=== PATIENT | male | born 1975 | race African-American/Black ===

== ENCOUNTER 2016-09-20 23:00 | Emergency (ER) | payer MEDICAID ==
[2016-09-21 00:45] LABS: Hematocrit 48 % (42-52); Hemoglobin 16.3 g/dl (14.0-18.0); Mean Corpuscular HGB Conc 34 g/dl (31-36); Mean Corpuscular Hemoglobin 29 pg (27-31); Mean Corpuscular Volume 86 fL (80-94); Mean Platelet Volume 10 um3 (7.4-10.4); Red Cell Distribution Width 14 % (10.5-15); White Blood Count 10.7 10^3/ul (3.5-10.8)
[2016-09-21 00:56] LABS: Albumin 4.7 g/dL (3.2-5.2); BUN/Creatinine Ratio 11.1 (8-20); Calcium 9.5 mg/dL (8.6-10.3); EGFR African American 120.2 (>60); EGFR Non-African American 93.5 (>60); Globulin 3.5 g/dL (2-4); Potassium 4.1 mmol/L (3.5-5.0); Total Bilirubin 0.4 mg/dL (0.2-1.0); Total Protein 8.2 g/dL (6.4-8.9)
[2016-09-21 01:07] LABS: Benzodiazepine Urine Screen None Detected (None Detect)
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
[2016-09-21 12:01] VITALS: BP 150/74
--- NOTE | 2016-09-21 15:00 | ED ---
Claudia Tillman Matthew, scribed for Sheldon Obrien MD on 09/21/16 at 1313 . Progress - Progress Note Progress Note: The patient is a sign out from Dr. Saba. The patient is in stable condition and will be discharged home. He does not need M[facility] admission, will be discharged home. - Consult/PCP Time Called: 11:00 Course/Dx - Course Course Of Treatment: This is a 41 y/o male presenting with alcohol intoxication. He claims to be very angry and requests a mental health evaluation. Pt denies SI. The patient will be signed out to Dr. Obrien. - Diagnoses Provider Diagnoses: Alcohol intoxication The documentation as recorded by the Claudia monte Matthew accurately reflects the service I personally performed and the decisions made by , Sheldon Obrien MD.
== END 2016-09-21 13:00 | disposition home or self-care (01) ==
LOC: ED 23:00
DX: F10.129 Alcohol abuse with intoxication, unspecified (principal); F41.9 Anxiety disorder, unspecified; F17.210 Nicotine dependence, cigarettes, uncomplicated
CPT/HCPCS: 36415; 80053; 80307; 80320; 85025; 99283; G0480

== ENCOUNTER 2016-09-25 21:47 | Emergency (ER) | payer MEDICAID ==
[2016-09-25 22:05] VITALS: BP 147/94
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
== END 2016-09-26 06:58 | disposition home or self-care (01) ==
LOC: ED 21:47
DX: F10.10 Alcohol abuse, uncomplicated (principal); R41.82 Altered mental status, unspecified; R44.3 Hallucinations, unspecified; F17.210 Nicotine dependence, cigarettes, uncomplicated
CPT/HCPCS: 99282

== ENCOUNTER 2016-10-09 22:03 | Emergency (ER) | payer MEDICAID ==
[2016-10-09 22:06] VITALS: BP 158/79
[2016-10-09] MEDS ORDERED: Tetan/Diph/Pertus SYR(Tdap)* 0.5 ML SYR(BOOSTRIX) use SYR IM ONE (22:08)
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
== END 2016-10-09 23:16 | disposition home or self-care (01) ==
LOC: ED 22:03
DX: S01.01XA Laceration without foreign body of scalp, initial encounter (principal); Y04.8XXA Assault by other bodily force, initial encounter; Y93.89 Activity, other specified; Y92.009 Unspecified place in unspecified non-institutional (private) residence as the place of occurrence of the external cause; Z23 Encounter for immunization; F03.90 Unspecified dementia, unspecified severity, without behavioral disturbance, psychotic disturbance, mood disturbance, and anxiety; F17.210 Nicotine dependence, cigarettes, uncomplicated
CPT/HCPCS: 12002; 70450; 90471; 90715; 99282

== ENCOUNTER 2016-10-15 15:43 | Emergency (ER) | payer MEDICAID ==
[2016-10-15 16:39] LABS: Hematocrit 50 % (42-52); Hemoglobin 16.7 g/dl (14.0-18.0); Mean Corpuscular HGB Conc 33 g/dl (31-36); Mean Corpuscular Hemoglobin 29 pg (27-31); Mean Corpuscular Volume 86 fL (80-94); Mean Platelet Volume 9 um3 (7.4-10.4); Red Blood Count 5.82 10^6/ul (4.0-5.4); Red Cell Distribution Width 15 % (10.5-15); White Blood Count 9.8 10^3/ul (3.5-10.8)
[2016-10-15 16:56] LABS: Benzodiazepine Urine Screen None Detected (None Detect)
[2016-10-15 16:58] LABS: Albumin 4.5 g/dL (3.2-5.2); BUN/Creatinine Ratio 11.9 (8-20); Calcium 9.4 mg/dL (8.6-10.3); EGFR African American 130.2 (>60); EGFR Non-African American 101.2 (>60); Globulin 3.4 g/dL (2-4); Potassium 4.1 mmol/L (3.5-5.0); Total Bilirubin 0.2 mg/dL (0.2-1.0); Total Protein 7.9 g/dL (6.4-8.9)
--- NOTE | 2016-10-15 17:26 | RAD ---
INDICATION: Intracranial injury COMPARISON: CT brain October 09, 2016 TECHNIQUE: Noncontrast axial source images were acquired from the skull base to the vertex. FINDINGS: Ventricles/sulci: The ventricles and cisterns are normal in size and configuration for age. Brain parenchyma: There is no acute focal parenchymal finding, evidence of intracranial mass, or intracranial mass effect. 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 Intracranial hemorrhage:None. Extra-axial spaces: There are no abnormal extra axial fluid collections or evidence of extra-axial mass. Calvarium: There is no calvarial fracture or other calvarial abnormality. Scalp: There is right posterior parietal scalp laceration. Paranasal sinuses/mastoid: The paranasal sinuses and mastoid air cells are clear. Other: None. IMPRESSION: NEGATIVE EXAMINATION
[2016-10-15 19:28] VITALS: BP 114/65
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
== END 2016-10-15 19:20 | disposition home or self-care (01) ==
LOC: ED 15:43
DX: F10.129 Alcohol abuse with intoxication, unspecified (principal); F07.81 Postconcussional syndrome; Y90.8 Blood alcohol level of 240 mg/100 ml or more; W22.8XXA Striking against or struck by other objects, initial encounter; Y92.9 Unspecified place or not applicable; F43.9 Reaction to severe stress, unspecified; F17.210 Nicotine dependence, cigarettes, uncomplicated
CPT/HCPCS: 36415; 70450; 80053; 80307; 80320; 85027; 99282; G0480

== ENCOUNTER 2016-10-29 04:24 | Emergency (ER) | payer MEDICAID ==
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
[2016-10-29 07:02] VITALS: BP 105/66
== END 2016-10-29 07:00 | disposition home or self-care (01) ==
LOC: ED 04:24
DX: F10.920 Alcohol use, unspecified with intoxication, uncomplicated (principal); R51 Headache; F17.210 Nicotine dependence, cigarettes, uncomplicated
CPT/HCPCS: 99282

== ENCOUNTER 2016-11-02 21:38 | Emergency (ER) | payer MEDICAID ==
[2016-11-02] MEDS ORDERED: LORazepam INJ* 2 MG/ML 1 ML VIAL ONE ×2 (22:00)
[2016-11-02] MEDS ORDERED: LORazepam INJ* 2 MG/ML 1 ML VIAL IM ONE (22:02)
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
[2016-11-03 06:24] VITALS: BP 140/79
== END 2016-11-03 06:23 | disposition home or self-care (01) ==
LOC: ED 21:38
DX: F10.129 Alcohol abuse with intoxication, unspecified (principal); R47.81 Slurred speech; F17.210 Nicotine dependence, cigarettes, uncomplicated
CPT/HCPCS: 96374; 96376; 99284; J2060

== ENCOUNTER 2016-11-03 16:57 | Emergency (ER) | payer MEDICAID ==
[2016-11-03] MEDS ORDERED: diPHENhydraMINE IV* 50 MG/ML 1 ml VIAL (BENADRYL) ONE ×2 (17:25)
[2016-11-03] MEDS ORDERED: LORazepam INJ* 2 MG/ML 1 ML VIAL ONE ×2 (17:25)
[2016-11-03] MEDS ORDERED: Haloperidol INJ IV/IM* 5 MG/ML AMP ONE ×2 (17:25)
[2016-11-03] MEDS ORDERED: Thiamine IV* 100 MG, Folic Acid IV* 1 MG, Multiple Vitamin IV ADULT* 10 ML in NS 0.9% 1... IV ONE (17:27)
[2016-11-03 18:53] LABS: Hematocrit 43 % (42-52); Hemoglobin 14.1 g/dl (14.0-18.0); Mean Corpuscular HGB Conc 33 g/dl (31-36); Mean Corpuscular Hemoglobin 28 pg (27-31); Mean Corpuscular Volume 86 fL (80-94); Mean Platelet Volume 9 um3 (7.4-10.4); Red Blood Count 4.98 10^6/ul (4.0-5.4); Red Cell Distribution Width 15 % (10.5-15); White Blood Count 9.6 10^3/ul (3.5-10.8)
[2016-11-03 19:09] LABS: ALT 13 U/L (7-52); AST 28 U/L (13-39); Alkaline Phosphatase 56 U/L (34-104); Anion Gap 5 mmol/L (2-11); BUN/Creatinine Ratio 10.8 (8-20); Blood Urea Nitrogen 8 mg/dL (6-24); CO2 Carbon Dioxide 27 mmol/L (22-32); Calcium 8.4 mg/dL (8.6-10.3); Chloride 103 mmol/L (101-111); EGFR African American 150.7 (>60); EGFR Non-African American 117.1 (>60); Globulin 2.9 g/dL (2-4); Glucose 67 mg/dL (70-100); Sodium 135 mmol/L (133-145); Total Protein 6.9 g/dL (6.4-8.9)
[2016-11-03 19:32] LABS: Acetaminophen < 15 mcg/mL; Alcohol 302 mg/dL (<10); Salicylate < 2.50 mg/dL (<30)
[2016-11-03 19:35] LABS: TSH (Thyroid Stimulating Horm) 0.28 mcIU/mL (0.34-5.60)
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
[2016-11-04 05:04] VITALS: BP 122/61
[2016-11-04] MEDS ORDERED: Thiamine IV* 100 MG, Folic Acid IV* 1 MG, Multiple Vitamin IV ADULT* 10 ML in NS 0.9% 1... IV ONE (15:00)
== END 2016-11-04 05:03 | disposition home or self-care (01) ==
LOC: ED 16:57 → UNDOADMIN 11-04 05:00 → BSU 11-04 05:00 → ED 11-04 05:03
DX: F10.129 Alcohol abuse with intoxication, unspecified (principal); Y90.8 Blood alcohol level of 240 mg/100 ml or more; F41.9 Anxiety disorder, unspecified; R45.6 Violent behavior; F17.210 Nicotine dependence, cigarettes, uncomplicated
CPT/HCPCS: 36415; 80053; 80320; 80329; 84443; 85025; 99285; G0480; J1200; J1630; J2060; J3411

== ENCOUNTER 2016-11-16 00:11 | Emergency (ER) | payer SELFPAY ==
[2016-11-16 01:04] LABS: Hematocrit 46 % (42-52); Hemoglobin 15.4 g/dl (14.0-18.0); Mean Corpuscular HGB Conc 34 g/dl (31-36); Mean Corpuscular Hemoglobin 29 pg (27-31); Mean Corpuscular Volume 86 fL (80-94); Mean Platelet Volume 9 um3 (7.4-10.4); Red Blood Count 5.29 10^6/ul (4.0-5.4); Red Cell Distribution Width 15 % (10.5-15); White Blood Count 10.7 10^3/ul (3.5-10.8)
[2016-11-16 01:06] LABS: ALT 26 U/L (7-52); AST 30 U/L (13-39); Albumin 4.5 g/dL (3.2-5.2); Alkaline Phosphatase 65 U/L (34-104); Anion Gap 11 mmol/L (2-11); BUN/Creatinine Ratio 10.1 (8-20); Blood Urea Nitrogen 8 mg/dL (6-24); CO2 Carbon Dioxide 23 mmol/L (22-32); Calcium 9.1 mg/dL (8.6-10.3); Chloride 101 mmol/L (101-111); EGFR African American 139.7 (>60); EGFR Non-African American 108.6 (>60); Globulin 3.5 g/dL (2-4); Glucose 79 mg/dL (70-100); Potassium 4.1 mmol/L (3.5-5.0); Sodium 135 mmol/L (133-145); Urine Bacteria 1+ (Absent); Urine Bilirubin Negative (Negative); Urine Glucose Negative (Negative); Urine Nitrite Negative (Negative)
[2016-11-16 01:11] LABS: Benzodiazepine Urine Screen Presumptive Positive (None Detect)
[2016-11-16 01:18] LABS: Acetaminophen < 15 mcg/mL; Alcohol 267 mg/dL (<10); Salicylate < 2.50 mg/dL (<30)
[2016-11-16 01:28] LABS: TSH (Thyroid Stimulating Horm) 1.15 mcIU/mL (0.34-5.60)
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
[2016-11-16] MEDS ORDERED: Nicotine Inhaler* 10 MG AMP INH ONE (08:08)
[2016-11-16] MEDS ORDERED: Mouth Piece, Nicotine* 1 EACH CARTRIDGE ONE (08:52)
--- NOTE | 2016-11-16 17:58 | ED ---
julián Tillman Timothy, scribed for Sheldon Obrien MD on 11/16/16 at 0810 . Progress - Progress Note Progress Note: Toan Biswas is a 41 yo male presenting to [facility] as a 941. He was signed out by Dr. Shaw. Course/Dx - Course Course Of Treatment: Toan Biswas is a 41 yo male presenting to [facility] as a 941. He is medically clear for a MHUE at 0800. He will be signed out pending a mental health unit evaluation. - Diagnoses Provider Diagnoses: Mental health problem, Alcohol intoxication The documentation as recorded by the mariahibejulián Timothy accurately reflects the service I personally performed and the decisions made by me, Sheldon Obrien MD.
[2016-11-16 19:01] VITALS: BP 149/82
== END 2016-11-16 19:00 | disposition home or self-care (01) ==
LOC: ED 00:11
DX: F10.129 Alcohol abuse with intoxication, unspecified (principal); Z00.8 Encounter for other general examination
CPT/HCPCS: 36415; 80053; 80307; 80320; 80329; 81003; 81015; 84443; 85025; 87086; 99282; A9270-GY; G0480

== ENCOUNTER 2016-11-27 22:45 | Emergency (ER) | payer SELFPAY ==
[2016-11-27 23:12] VITALS: BP 136/87
[2016-11-28 00:04] LABS: Urine Bacteria Absent (Absent); Urine Bilirubin Negative (Negative); Urine Glucose Negative (Negative); Urine Nitrite Negative (Negative)
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
== END 2016-11-28 00:27 | disposition home or self-care (01) ==
LOC: ED 22:45
DX: F07.81 Postconcussional syndrome (principal); R42 Dizziness and giddiness; R51 Headache; H53.8 Other visual disturbances; F17.210 Nicotine dependence, cigarettes, uncomplicated
CPT/HCPCS: 70450; 81003; 81015; 99282

== ENCOUNTER 2016-11-28 19:40 | Emergency (ER) | payer SELFPAY ==
[2016-11-28] MEDS ORDERED: LORazepam INJ* 2 MG/ML 1 ML VIAL IM ONE (20:18)
[2016-11-28] MEDS ORDERED: Haloperidol INJ IV/IM* 5 MG/ML AMP IM ONE (20:18)
[2016-11-28] MEDS ORDERED: diPHENhydraMINE IV* 50 MG/ML 1 ml VIAL (BENADRYL) IM ONE (20:18)
[2016-11-28] MEDS ORDERED: Haloperidol INJ IV/IM* 5 MG/ML AMP ONE (20:19)
[2016-11-28] MEDS ORDERED: diPHENhydraMINE IV* 50 MG/ML 1 ml VIAL (BENADRYL) ONE (20:19)
[2016-11-28] MEDS ORDERED: LORazepam INJ* 2 MG/ML 1 ML VIAL ONE (20:19)
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
[2016-11-28 21:01] LABS: Hematocrit 45 % (42-52); Hemoglobin 14.8 g/dl (14.0-18.0); Mean Corpuscular HGB Conc 33 g/dl (31-36); Mean Corpuscular Hemoglobin 29 pg (27-31); Mean Corpuscular Volume 87 fL (80-94); Mean Platelet Volume 8 um3 (7.4-10.4); Red Blood Count 5.18 10^6/ul (4.0-5.4); Red Cell Distribution Width 15 % (10.5-15); White Blood Count 8.8 10^3/ul (3.5-10.8)
[2016-11-28 21:02] LABS: Add Diff/Slide Review? Slide Review Added; Comments Flag Yes
[2016-11-28 21:18] LABS: ALT 22 U/L (7-52); AST 32 U/L (13-39); Albumin 4.3 g/dL (3.2-5.2); Alkaline Phosphatase 65 U/L (34-104); Anion Gap 10 mmol/L (2-11); BUN/Creatinine Ratio 7.7 (8-20); Blood Urea Nitrogen 7 mg/dL (6-24); CO2 Carbon Dioxide 26 mmol/L (22-32); Calcium 8.6 mg/dL (8.6-10.3); Chloride 101 mmol/L (101-111); EGFR African American 118.7 (>60); EGFR Non-African American 92.3 (>60); Globulin 3.3 g/dL (2-4); Glucose 90 mg/dL (70-100); Potassium 3.9 mmol/L (3.5-5.0); Sodium 137 mmol/L (133-145); Total Protein 7.6 g/dL (6.4-8.9)
[2016-11-28 21:35] LABS: Acetaminophen < 15 mcg/mL; Alcohol 385 mg/dL (<10); Salicylate < 2.50 mg/dL (<30)
[2016-11-28 21:46] LABS: TSH (Thyroid Stimulating Horm) 0.71 mcIU/mL (0.34-5.60)
[2016-11-29 09:14] VITALS: BP 122/60
== END 2016-11-29 09:11 | disposition home or self-care (01) ==
LOC: ED 19:40
DX: F10.129 Alcohol abuse with intoxication, unspecified (principal); Z72.89 Other problems related to lifestyle; F17.210 Nicotine dependence, cigarettes, uncomplicated
CPT/HCPCS: 36415; 80053; 80320; 80329; 84443; 85025; 96374; 96375; 99283; G0480; J1200; J1630; J2060

== ENCOUNTER 2016-11-30 19:44 | Emergency (ER) | payer SELFPAY ==
[2016-11-30 20:06] VITALS: BP 156/89
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
== END 2016-11-30 23:31 | disposition home or self-care (01) ==
LOC: ED 19:44
DX: F10.129 Alcohol abuse with intoxication, unspecified (principal); F17.210 Nicotine dependence, cigarettes, uncomplicated
CPT/HCPCS: 99282

== ENCOUNTER 2016-12-01 21:51 | Emergency (ER) | payer MEDICAID ==
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
[2016-12-02 05:55] VITALS: BP 150/77
== END 2016-12-02 05:54 | disposition home or self-care (01) ==
LOC: ED 21:51
DX: F10.10 Alcohol abuse, uncomplicated (principal); S09.90XA Unspecified injury of head, initial encounter; W22.8XXA Striking against or struck by other objects, initial encounter; Y93.89 Activity, other specified; Y92.89 Other specified places as the place of occurrence of the external cause; F17.210 Nicotine dependence, cigarettes, uncomplicated
CPT/HCPCS: 99282

== ENCOUNTER 2017-01-19 17:25 | Emergency (ER) | payer MEDICAID ==
[2017-01-19] MEDS ORDERED: LORazepam INJ* 2 MG/ML 1 ML VIAL IM ONE (18:01)
[2017-01-19] MEDS ORDERED: Nicotine Inhaler* 10 MG AMP INH PRN (18:02)
[2017-01-19] MEDS ORDERED: Mouth Piece, Nicotine* 1 EACH CARTRIDGE ONE (18:10)
[2017-01-19] MEDS ORDERED: Nicotine Inhaler* 10 MG AMP ONE (18:10)
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
[2017-01-20 06:07] VITALS: BP 152/100
== END 2017-01-20 06:11 | disposition home or self-care (01) ==
LOC: ED 17:25
DX: F10.129 Alcohol abuse with intoxication, unspecified (principal); F17.210 Nicotine dependence, cigarettes, uncomplicated
CPT/HCPCS: 99282; A9270-GY; J2060

== ENCOUNTER 2018-02-06 04:58 | Emergency (ER) | payer MEDICAID ==
[2018-02-06] MEDS ORDERED: Al Hydrox/Mg Hydrox/Simet LIQ* 30 ML UDC PO ONE (05:13)
[2018-02-06] MEDS ORDERED: Lidocaine 2% VISCOUS* 15 ML UDC PO ONE (05:14)
[2018-02-06] MEDS ORDERED: Tamsulosin CAP* 0.4 MG PO ONE (06:30)
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
[2018-02-06 12:26] VITALS: BP 127/66
== END 2018-02-06 12:22 | disposition home or self-care (01) ==
LOC: ED 04:58
DX: F10.129 Alcohol abuse with intoxication, unspecified (principal); K21.9 Gastro-esophageal reflux disease without esophagitis; F17.210 Nicotine dependence, cigarettes, uncomplicated
CPT/HCPCS: 99282; A9270-GY

== ENCOUNTER 2018-04-01 05:30 | Emergency (ER) | payer SELFPAY ==
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
--- NOTE | 2018-04-01 07:10 | ED ---
Progress - Progress Note Progress Note: This is scribe Steve Iniguez documenting for attending Darek Lee MD. 11:10 -- At around this time, the patient who had been sleeping the past few hours woke up and left ED without notification to Dr. Lee or other medical staff. Course/Dx - Course Course Of Treatment: Mr. Biswas presented to the emergency department as it has been many times before and it acutely intoxicated state. He was evaluated and allowed to sleep here in the emergency department and was sleeping when my shift began. It was my intention to evaluate him upon waking up and likely discharge however he got up and walked out as soon as he woke up and all I could do is observe that he walked with a normal gait. - Diagnoses Provider Diagnoses: Alcohol intoxication Discharge - Sign-Out/Discharge Documenting (check all that apply): Patient Departure - patient left without being seen or talking to Dr. Lee or medical staff - Discharge Plan Condition: Stable Disposition: ELOPEMENT Referrals: Pawan Abarca MD [Primary Care Provider] - - Billing Disposition and Condition Condition: STABLE Disposition: Elopement
[2018-04-01 11:15] VITALS: BP 115/73
== END 2018-04-01 11:23 | disposition left against medical advice (07) ==
LOC: ED 05:30
DX: F10.129 Alcohol abuse with intoxication, unspecified (principal); F17.210 Nicotine dependence, cigarettes, uncomplicated
CPT/HCPCS: 99282

== ENCOUNTER 2018-05-14 23:34 | Emergency (ER) | payer SELFPAY ==
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
[2018-05-14 23:55] LABS: ABS Basophils 0.1 10^3/ul (0-0.2); ABS Eosinophils 0.3 10^3/ul (0-0.6); ABS Lymphocytes 2.2 10^3/ul (1.0-4.8); ABS Monocytes 0.7 10^3/ul (0-0.8); ABS Nucleated RBC 0 10^3/ul; Eosinophil % 4.1 % (0-6); Hematocrit 42 % (42-52); Hemoglobin 14.3 g/dl (14.0-18.0); Lymphocyte % 29.9 % (25-47); Mean Corpuscular HGB Conc 34 g/dl (31-36); Mean Corpuscular Hemoglobin 30 pg (27-31); Mean Corpuscular Volume 88 fL (80-94); Mean Platelet Volume 8.2 um3 (7.4-10.4); Nucleated Red Blood Cells % 0.2; Platelet Count 191 10^3/ul (150-450); Red Blood Count 4.74 10^6/ul (4.00-5.40); Red Cell Distribution Width 16 % (10.5-15); White Blood Count 7.4 10^3/ul (3.5-10.8)
[2018-05-15 00:17] LABS: EGFR Non-African American 100.2 (>60)
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
[2018-05-15 10:24] VITALS: BP 160/101
== END 2018-05-15 10:23 | disposition home or self-care (01) ==
LOC: ED 23:34
CPT/HCPCS: 36415; 70450; 70486; 72125; 80053; 80320; 85025; G0480

== ENCOUNTER → 2018-05-15 10:56 | Emergency (ER) | payer SELFPAY ==
[2018-05-15 11:19] VITALS: BP 161/84
== END | disposition home or self-care (01) ==
LOC: ED 10:56
DX: R42 Dizziness and giddiness (principal)
CPT/HCPCS: 99282

== ENCOUNTER 2018-08-07 23:34 | Emergency (ER) | payer SELFPAY ==
[2018-08-08] MEDS ORDERED: Nicotine GUM* 2 MG PO PRN (00:25)
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
--- NOTE | 2018-08-08 04:18 | ED ---
Progress - Progress Note Progress Note: Patient is received as a sign out at 0230 08/08/18 from DEYA Jansen pending sobriety of this patient. Patient is signed out to Dr. Shetty at 0700 08/08/18 shift change pending sobriety of patient. Course/Dx - Course Course Of Treatment: Patient is received as a sign out at 0230 08/08/18 from DEYA Jansen pending sobriety of this patient. Patient is signed out to Dr. Shetty at 0700 08/08/18 shift change pending sobriety of patient. - Diagnoses Provider Diagnoses: Alcohol intoxication Discharge - Sign-Out/Discharge Documenting (check all that apply): Sign-Out Patient Signing out patient TO: Beau Shetty Receiving patient FROM: Jennifer Colmenares - Discharge Plan Referrals: Pawan Abarca MD [Primary Care Provider] - - Attestation Statements Document Initiated by Scribe: Yes Documenting Scribe: CRISELDA DAVILA Provider For Whom Scribe is Documenting (Include Credential): JENNIFER COLMENARES MD Scribe Attestation: CRISELDA Tillman , scribed for JENNIFER COLMENARES MD on 08/08/18 at 0641. Status of Scribe Document: Ready
--- NOTE | 2018-08-08 07:12 | ED ---
Progress - Progress Note Progress Note: The patient was signed out by Dr. Colmenares to Dr. Shetty, waiting for him to sober up. He has not had bloodwork done, so I am going to see what his ROLAND is and make a decision afterwards. Re-Evaluation - Re-Evaluation First Eval Re-Evaluation Time: 07:55 Change: Worse Comment: The patient is agitated, angry, and says he wants to end everything. He is going to need a mental health evaluation, to be determined after finding out his ROLAND. Course/Dx - Course Course Of Treatment: This patient was sent up with Dr. Colmenares at shift change. He reports that the patient is a 43-year-old male with alcohol intoxication. The patient is awaiting to be sober. No that the patient is awake, alert and oriented he reports that he wants to end his life therefore the patient will be medically cleared for a mental health evaluation. Mental health evaluation. Dr. Bates reports that the patient can be discharged home after a social work evaluation. The patient is alert oriented 3. The patient is hemodynamically stable. The patient is sober therefore the patient can be discharged home after the social services coordinator evaluation. Delilah Mora rodent control worker consulted and recommends discharge to [facility]. - Diagnoses Provider Diagnoses: Alcohol intoxication Discharge - Sign-Out/Discharge Documenting (check all that apply): Patient Departure - discharge, Receiving Sign-Out Receiving patient FROM: Debbie Colmenares - Discharge Plan Condition: Stable Disposition: HOME Patient Education Materials: Alcohol Intoxication (ED) Referrals: [facility] of Maintenance Repairer [Other] (Please present to [facility] to apply for emergency housing to receive long-term at the rescue mission.) Pawan Abarca MD [Primary Care Provider] - Additional Instructions: RETURN TO THE EMERGENCY DEPARTMENT FOR NEW OR WORSENING SYMPTOMS - Billing Disposition and Condition Condition: STABLE Disposition: Home - Attestation Statements Document Initiated by Scribe: Yes Documenting Scribe: Diego Davis Provider For Whom Iván is Documenting (Include Credential): Beau Shetty MD Scribe Attestation: Diego Tillman, scribed for Beau Shetty MD on 08/08/18 at 1859. Scribe Documentation Reviewed: Yes Provider Attestation: The documentation as recorded by the Diego monet accurately reflects the service I personally performed and the decisions made by me, Beau Shetty MD Status of Scribe Document: Viewed
[2018-08-08 08:23] LABS: ABS Basophils 0.1 10^3/ul (0-0.2); ABS Eosinophils 0.2 10^3/ul (0-0.6); ABS Lymphocytes 2.2 10^3/ul (1.0-4.8); ABS Monocytes 0.5 10^3/ul (0-0.8); ABS Nucleated RBC 0 10^3/ul; Eosinophil % 2.7 %; Hematocrit 48 % (42-52); Hemoglobin 15.6 g/dl (14.0-18.0); Lymphocyte % 27.8 %; Mean Corpuscular HGB Conc 33 g/dl (31-36); Mean Corpuscular Hemoglobin 29 pg (27-31); Mean Corpuscular Volume 89 fL (80-94); Mean Platelet Volume 9.5 fL (7.4-10.4); Nucleated Red Blood Cells % 0.1; Platelet Count 168 10^3/ul (150-450); Red Blood Count 5.34 10^6/ul (4.00-5.40); Red Cell Distribution Width 14 % (10.5-15)
[2018-08-08 08:40] LABS: EGFR Non-African American 110.8 (>60)
[2018-08-08 11:52] VITALS: BP 152/82
== END 2018-08-08 11:51 | disposition home or self-care (01) ==
LOC: ED 23:34
DX: F10.129 Alcohol abuse with intoxication, unspecified (principal); F17.210 Nicotine dependence, cigarettes, uncomplicated
CPT/HCPCS: 36415; 80053; 80320; 80329; 84443; 85025; 99285; G0480

== ENCOUNTER 2019-02-06 15:12 | Emergency (ER) | payer SELFPAY ==
[2019-02-06 15:26] VITALS: BP 159/90
[2019-02-06] MEDS ORDERED: Amoxicillin/Clavulanate TAB* 875 MG PO ONE (15:44)
--- NOTE | 2019-02-06 16:02 | UC ---
Bite Injury/Animal HPI - HPI Summary HPI Summary: 43-year-old man who is well-known to the ER presents with dog bite to left forearm. He is right-handed. He states that his friend's dog bit him this prior to arrival, but that the dog is up-to-date on all his vaccines including rabies. He denies difficulty with moving the hand/arm, bleeding, drainage or other concerns. - History of Current Complaint Chief Complaint: UCBiteInjury Stated Complaint: DOG BITE ON LEFT ARM Time Seen by Provider: 02/06/19 15:21 Hx Obtained From: Patient Pain Intensity: 0 - Allergies/Home Medications Allergies/Adverse Reactions: Allergies Allergy/AdvReac Type Severity Reaction Status Date / Time No Known Allergies Allergy Verified 02/06/19 15:26 PMH/Surg Hx/FS Hx/Imm Hx Previously Healthy: Yes Psychological History: Other - Alcoholism Other History Of: Negative For: Anticoagulant Therapy - Surgical History Surgical History: Yes Surgery Procedure, Year, and Place: Chest reconstruction as child, sinus reconstruction - Family History Known Family History: Positive: Hypertension Family History: R & n/C - Social History Occupation: Employed Full-time Alcohol Use: Daily Alcohol Amount: couple beers today Substance Use Type: None Substance Use Comment - Amount & Last Used: patient declined Smoking Status (MU): Heavy Every Day Tobacco Smoker Type: Cigarettes Have You Smoked in the Last Year: Yes Household Exposure Type: Cigarettes - Immunization History Most Recent Influenza Vaccination: Never Most Recent Tetanus Shot: 2017 Most Recent Pneumonia Vaccination: Never Review of Systems All Other Systems Reviewed And Are Negative: Yes Constitutional: Positive: Negative Skin: Positive: Other - Dog bite injury Gastrointestinal: Positive: Negative Physical Exam Triage Information Reviewed: Yes Appearance: Well-Appearing, No Pain Distress, Well-Nourished, Other: - Allowed in disruptive in the waiting room, possibly intoxicated Vital Signs: Initial Vital Signs Temp 98.3 F 02/06/19 15:21 Pulse 70 02/06/19 15:21 Resp 18 02/06/19 15:21 BP 159/90 02/06/19 15:21 Pulse Ox 99 02/06/19 15:21 Eyes: Positive: Conjunctiva Clear ENT: Positive: Hearing grossly normal Neck: Positive: Supple Respiratory: Positive: Lungs clear Cardiovascular: Positive: RRR Musculoskeletal: Positive: Other: - Puncture wound on the dorsal and volar surfaces of the distal left forearm. No active bleeding. Minimal swelling. Intact tendon function to the hand. Good pulses. No limitation of range of motion. Neurological: Positive: Alert Skin Exam: Other - Dog bite injury as above with 1 cm puncture dorsally and half centimeter puncture wound volarly Procedures - Procedure Summary Procedure Summary: Wound care: The wounds of the left forearm were cleaned extensively by nursing with chlorhexidine and water. Additionally, I sprayed 322-gauge angiocatheter sterile saline into both wounds. A total of 1 L of saline was used. He was then dressed with gauze wraps and secured with Coban. He tolerated this well without complication. Bite Injury Course/Dx - Course Course Of Treatment: Puncture wounds cleaned and left open. Started on Augmentin. Follow-up for wound check in 2-3 days' time. Off work. Continue Augmentin. No indication for rabies prophylaxis. Tetanus up-to-date. - Differential Dx/Diagnosis Provider Diagnosis: Dog bite of left forearm Discharge - Sign-Out/Discharge Documenting (check all that apply): Patient Departure All imaging exams completed and their final reports reviewed: No Studies - Discharge Plan Condition: Improved Disposition: HOME Prescriptions: Amoxicillin/Clavulanate TAB* [Augmentin TAB 875*] 875 mg PO BID #20 tab Patient Education Materials: Animal Bite (ED), Puncture Wound (ED) Forms: *Work Release Referrals: Pawan Abarca MD [Primary Care Provider] - Additional Instructions: Return with increased pain, swelling, redness, worse, new symptoms or other concerns. Have your doctor check your wounds in 2-3 days' time. - Billing Disposition and Condition Condition: IMPROVED Disposition: Home
== END 2019-02-06 16:00 | disposition home or self-care (01) ==
LOC: UCEAST 15:12
DX: S51.852A Open bite of left forearm, initial encounter (principal); W54.0XXA Bitten by dog, initial encounter; Y92.017 Garden or yard in single-family (private) house as the place of occurrence of the external cause; F17.210 Nicotine dependence, cigarettes, uncomplicated
CPT/HCPCS: 99212; A9270-GY; G0463

== ENCOUNTER 2019-07-10 01:45 | Emergency (ER) | payer OTHER ==
--- NOTE | 2019-07-10 01:49 | ED ---
Substance Abuse/Use - HPI Summary HPI Summary: This pt is a 44 y/o male presenting to [facility] via EMS for possible alcohol intoxication. Police reports pt was found in the bushed behind [employer] tobacco. Per precinct police lieutenant pt appears intoxicated and pt is minimally responsive. Pt smells of alcohol and has slurred speech, per EMS. Pt has known hx of alcohol abuse. HPI IS LIMITED DUE TO LEVEL 5 CAVEAT - pt is somnolent - History Of Current Complaint Stated Complaint: 2209 PER EMS Time Seen by Provider: 07/10/19 01:46 Hx Obtained From: EMS, Other: - police Hx From Patient Unobtainable Due To: Other - LEVEL 5 CAVEAT - pt is somnolent Ingestion History: Type/Name Of Drug - Alcohol Overdose Characteristics: Oral Timing Of Abuse: Binge Use Severity Currently: Moderate Character: Lethargic, Stuporous Aggravating Factor(s): Nothing Alleviating Factor(s): Nothing Associated Signs And Symptoms: Intentional Ingestion - Allergies/Home Medications Allergies/Adverse Reactions: Allergies Allergy/AdvReac Type Severity Reaction Status Date / Time No Known Allergies Allergy Verified 02/06/19 15:26 PMH/Surg Hx/FS Hx/Imm Hx Endocrine/Hematology History: Denies: Hx Anticoagulant Therapy, Hx Blood Disorders, Hx Blood Transfusions, Hx Diabetes Cardiovascular History: Reports: Hx Hypertension Denies: Hx Aneurysm, Hx Angina, Hx Congestive Heart Failure Respiratory History: Denies: Hx Asthma GI History: Reports: Hx Gall Bladder Disease - Gallstones Denies: Hx Crohn's Disease History: Denies: Hx Acute Renal Failure, Hx Benign Prostatic Hyperplasia, Hx Renal Disease Musculoskeletal History: Reports: Hx Orthopedic Injury - Bilateral Knees Psychiatric History: Reports: Hx Anxiety, Hx Depression, Hx Inpatient Treatment , Hx of Violent Episodes Against Others, Hx Substance Abuse Denies: Hx Eating Disorder, Hx Community Mental Health Tx, Hx Suicide Attempt - Surgical History Surgery Procedure, Year, and Place: Chest reconstruction as child, sinus reconstruction - Immunization History Date of Tetanus Vaccine: Unknown Date of Influenza Vaccine: None - Family History Known Family History: Positive: Hypertension Family History: R & n/C - Social History Alcohol Use: Daily Alcohol Amount: couple beers today Hx Substance Use: Yes Substance Use Type: Reports: None Substance Use Comment - Amount & Last Used: patient declined Hx Tobacco Use: Yes Smoking Status (MU): Heavy Every Day Tobacco Smoker Type: Cigarettes Have You Smoked in the Last Year: Yes Review of Systems - ROS Summary Review of Systems Summary: ROS IS LIMITED DUE TO LEVEL 5 CAVEAT - pt is somnolent Negative: Fever Neurological: Other - POSITIVE: drowsy, minimally responsive All Other Systems Reviewed And Are Negative: No Physical Exam - Summary Physical Exam Summary: Appearance: Well-appearing, Well-nourished, lying in bed comfortable Skin: Warm, dry, no obvious rash Eyes: sclera anicteric, no conjunctival pallor ENT: mucous membranes moist Neck: deferred Respiratory: No signs of respiratory distress Cardiovascular: Appears well perfused, pulses are nml Abdomen: deferred Musculoskeletal: Moving all 4 extremities without obvious discomfort Neurological: Mental status is somnolent. Give his prior hx of being somewhat agitated when intoxicated I did not want to wake him up. Psychiatric: Mental status is somnolent. Triage Information Reviewed: Yes Vital Signs On Initial Exam: Initial Vitals Temp Pulse Resp BP Pulse Ox 96.9 F 73 18 121/86 67 07/10/19 01:54 07/10/19 01:54 07/10/19 01:54 07/10/19 01:54 07/10/19 01:54 Vital Signs Reviewed: Yes Completion Of Physical Exam Limited Due To: Level 5 - pt is somnolent Procedures - Sedation Patient Received Moderate/Deep Sedation with Procedure: No Course/Dx - Course Assessment/Plan: Pt is a 44 y/o male, with hx of alcohol abuse, presenting to [facility] via EMS for possible alcohol intoxication. Police reports pt was found in the bushed behind [employer]. Per precinct police lieutenant pt appears intoxicated and pt is minimally responsive. Pt smells of alcohol and has slurred speech, per EMS. Pt will be signed out to Dr. Morales pending sobriety. - Diagnoses Provider Diagnoses: Alcohol intoxication Discharge ED - Sign-Out/Discharge Documenting (check all that apply): Sign-Out Patient Signing out patient TO: Arline Austin - Discharge Plan Condition: Improved Disposition: HOME Patient Education Materials: Alcohol Intoxication (ED), Abuse of Alcohol (ED) Referrals: [facility] [Outside] Pawan Abarca MD [Medical Doctor] - - Billing Disposition and Condition Condition: IMPROVED Disposition: Home - Attestation Statements Document Initiated by Scribe: Yes Documenting Scribe: Ramonita Noriega Provider For Whom Scribe is Documenting (Include Credential): Darek Correa MD Scribe Attestation: I, Ramonita Noriega, scribed for Darek Correa MD on 07/10/19 at 1824. Scribe Documentation Reviewed: Yes Provider Attestation: The documentation as recorded by the rakaneRamonita accurately reflects the service I personally performed and the decisions made by me, Darek Correa MD Status of Scribe Document: Viewed
[2019-07-10 06:20] VITALS: BP 122/81
--- NOTE | 2019-07-10 07:14 | ED ---
Progress - Progress Note Progress Note: Patient is received as a sign-out from Dr. Correa to Dr. Soni at 0700 07/10/19 shift change pending sobriety of this alcohol intoxicated patient. 0732 - Patient is alert and oriented x3 and stable for discharge. He ambulated out of the department with a stable gait at this time. Re-Evaluation - Re-Evaluation First Eval Re-Evaluation Time: 07:32 Change: Improved Comment: 0732 - Patient is alert and oriented x3 and stable for discharge. He ambulated out of the department with a stable gait at this time. Course/Dx - Course Course Of Treatment: Patient is received as a sign-out from Dr. Correa to Dr. Soni at 0700 07/10/19 shift change pending sobriety of this alcohol intoxicated patient. 0732 - Patient is alert and oriented x3 and stable for discharge. He ambulated out of the department with a stable gait at this time. - Diagnoses Provider Diagnoses: Alcohol intoxication Discharge ED - Sign-Out/Discharge Documenting (check all that apply): Patient Departure - discharge - Discharge Plan Condition: Improved Disposition: HOME Patient Education Materials: Alcohol Intoxication (ED), Abuse of Alcohol (ED) Referrals: [facility] [Outside] Pawan Abarca MD [Medical Doctor] - - Billing Disposition and Condition Condition: IMPROVED Disposition: Home - Attestation Statements Document Initiated by Iván: Yes Documenting Scribe: CRISELDA DAVILA Provider For Whom Iván is Documenting (Include Credential): KELBY PURVIS MD Scribe Attestation: I, CRISELDA DAVILA, scribed for KELBY SONI MD on 07/10/19 at 1208. Scribe Documentation Reviewed: Yes Provider Attestation: The documentation as recorded by the CRISELDA monte accurately reflects the service I personally performed and the decisions made by me, KELBY SONI MD Status of Scribe Document: Viewed
== END 2019-07-10 07:20 | disposition home or self-care (01) ==
LOC: ED 01:45
DX: F10.929 Alcohol use, unspecified with intoxication, unspecified (principal); I10 Essential (primary) hypertension; F17.210 Nicotine dependence, cigarettes, uncomplicated
CPT/HCPCS: 99283

== ENCOUNTER 2019-07-14 03:45 | Emergency (ER) | payer OTHER ==
--- NOTE | 2019-07-14 05:37 | ED ---
Altered Mental Status - HPI Summary HPI Summary: Patient is a 44 y/o M presenting to [facility] for SI and alcohol intoxication. tactical response group officer who accompanied the patient reports that the patient had gone to the home of a girl earlier this evening. The girl's landlord did not want the girl to bring people over to her apartment. The girl and the landlord got into an argument, which led to the landlord calling police. Police came and the patient was escorted off of the premises. The patient began to make suicidal statements to the railroad police officer and the patient was subsequently brought to [facility] for MHE. tactical response group officer notes that the patient possibly had made these suicidal statements as he did not have a place to go to after having been removed from the girl's apartment. Home medications and allergies are reviewed. - History Of Current Complaint Chief Complaint: EDMentalHealth Stated Complaint: 941 PER POLICE Time Seen by Provider: 07/14/19 04:01 Hx Obtained From: Patient, Other: - railroad police officer Onset/Duration: Still Present Timing: Constant Aggravating Factor(s): Other - stress Has Suicidal: Thoughts - Allergies/Home Medications Allergies/Adverse Reactions: Allergies Allergy/AdvReac Type Severity Reaction Status Date / Time No Known Allergies Allergy Verified 02/06/19 15:26 PMH/Surg Hx/FS Hx/Imm Hx Endocrine/Hematology History: Denies: Hx Anticoagulant Therapy, Hx Blood Disorders, Hx Blood Transfusions, Hx Diabetes Cardiovascular History: Reports: Hx Hypertension Denies: Hx Aneurysm, Hx Angina, Hx Congestive Heart Failure Respiratory History: Denies: Hx Asthma GI History: Reports: Hx Gall Bladder Disease - Gallstones Denies: Hx Crohn's Disease History: Denies: Hx Acute Renal Failure, Hx Benign Prostatic Hyperplasia, Hx Renal Disease Musculoskeletal History: Reports: Hx Orthopedic Injury - Bilateral Knees Psychiatric History: Reports: Hx Anxiety, Hx Depression, Hx Inpatient Treatment , Hx of Violent Episodes Against Others, Hx Substance Abuse Denies: Hx Eating Disorder, Hx Community Mental Health Tx, Hx Suicide Attempt - Surgical History Surgery Procedure, Year, and Place: Chest reconstruction as child, sinus reconstruction - Immunization History Date of Tetanus Vaccine: Unknown Date of Influenza Vaccine: None Infectious Disease History: No Infectious Disease History: Denies: Traveled Outside the [place] in Last 30 Days - Family History Known Family History: Positive: Hypertension - Social History Alcohol Use: Daily Alcohol Amount: couple beers today Hx Substance Use: Yes Substance Use Type: Reports: None Substance Use Comment - Amount & Last Used: patient declined Hx Tobacco Use: Yes Smoking Status (MU): Heavy Every Day Tobacco Smoker Type: Cigarettes Have You Smoked in the Last Year: Yes Review of Systems Constitutional: Other - positive - alcohol intoxication Psychological: Other - positive - SI All Other Systems Reviewed And Are Negative: Yes Physical Exam - Summary Physical Exam Summary: Appearance: Well-appearing, Well-nourished, lying in bed comfortably Skin: Warm, dry, no obvious rash Eyes: sclera anicteric, no conjunctival pallor ENT: mucous membranes moist, pharynx appears normal Neck: Supple, nontender Respiratory: Clear to auscultation, no signs of respiratory distress Cardiovascular: Normal S1, S2. No murmurs. Normal distal pulses in tibial and radial bilaterally. Abdomen: Soft, nontender, normal active bowel sounds present Musculoskeletal: Normal, Strength/ROM Intact Neurological: Awake and alert Psychiatric: mildly agitated but able to be verbally redirected Triage Information Reviewed: Yes Vital Signs On Initial Exam: Initial Vitals Temp Pulse Resp BP Pulse Ox 98 F 89 18 135/83 97 07/14/19 03:46 07/14/19 03:46 07/14/19 03:46 07/14/19 03:46 07/14/19 03:46 Vital Signs Reviewed: Yes Procedures - Sedation Patient Received Moderate/Deep Sedation with Procedure: No Diagnostics - Vital Signs Vital Signs Temp Pulse Resp BP Pulse Ox 07/14/19 03:46 98 F 89 18 135/83 97 - Laboratory Lab Statement: Any lab studies that have been ordered have been reviewed, and results considered in the medical decision making process. Altered Mental Statu Course/Dx - Course Course Of Treatment: Patient is a 44 y/o M presenting to [facility] for SI and alcohol intoxication. tactical response group officer who accompanied the patient reports that the patient had gone to the home of a girl earlier this evening. The girl's landlord did not want the girl to bring people over to her apartment. The girl and the landlord got into an argument, which led to the landlord calling police. Police came and the patient was escorted off of the premises. The patient began to make suicidal statements to the railroad police officer and the patient was subsequently brought to [facility] for MHE. tactical response group officer notes that the patient possibly had made these suicidal statements as he did not have a place to go to after having been removed from the girl's apartment. Patient is mildly agitated but able to be verbally redirected. Patient is signed out to Dr. Griffin at 0700 07/14/19 shift change pending sobriety of this patient. - Diagnoses Provider Diagnoses: Alcohol abuse Discharge ED - Sign-Out/Discharge Documenting (check all that apply): Sign-Out Patient Signing out patient TO: Holger Griffin - Discharge Plan Condition: Stable Disposition: HOME Patient Education Materials: Alcohol Intoxication (ED), Abuse of Alcohol (ED), Alcohol Dependence (ED) Referrals: [facility] [Outside] Dianna Castle [Primary Care Provider] - Additional Instructions: You were seen in the emergency department for alcohol intoxication. Please don' t drink and drive. It was a pleasure taking care of you today. - Billing Disposition and Condition Condition: STABLE Disposition: Home - Attestation Statements Document Initiated by Iván: Yes Documenting Scribe: CRISELDA DAVILA Provider For Whom Iván is Documenting (Include Credential): JUANITA GIVENS MD Scribe Attestation: ICRISELDA, scribed for JUANITA GIVENS MD on 07/14/19 at 1912. Scribe Documentation Reviewed: Yes Provider Attestation: The documentation as recorded by the CRISELDA monte accurately reflects the service I personally performed and the decisions made by me, JUANITA GIVENS MD Status of Scribe Document: Viewed
--- NOTE | 2019-07-14 07:13 | ED ---
Progress - Progress Note Progress Note: This pt is a sign out from Dr. Correa to Dr. Griffin pending sobriety. Re-Evaluation - Re-Evaluation First Eval Re-Evaluation Time: 08:13 Change: Improved Comment: Pt is alert and oriented. He denies SI or HI. Pt states he was just frustrated with his girlfriend. Second Eval Re-Evaluation Time: 10:13 Change: Improved Comment: pt is ambulating in the ED, AAOx3. Course/Dx - Course Course Of Treatment: This pt was signed out by Dr. Correa pending sobriety. On re-evaluation pt is alert and oriented. He denies SI or HI. Pt is ambulating in the ED and is ready to go to work. Pt was discharged home. - Diagnoses Provider Diagnoses: Alcohol abuse Discharge ED - Sign-Out/Discharge Documenting (check all that apply): Patient Departure - Discharge home, Receiving Sign-Out Receiving patient FROM: Darek Correa - Discharge Plan Condition: Stable Disposition: HOME Patient Education Materials: Alcohol Intoxication (ED), Abuse of Alcohol (ED), Alcohol Dependence (ED) Referrals: [facility] [Outside] Dianna Castle [Primary Care Provider] - Additional Instructions: You were seen in the emergency department for alcohol intoxication. Please don' t drink and drive. It was a pleasure taking care of you today. - Billing Disposition and Condition Condition: STABLE Disposition: Home - Attestation Statements Document Initiated by Minhibe: Yes Documenting Scribe: Ramonita Noriega Provider For Whom Iván is Documenting (Include Credential): Holger Griffin MD Scribe Attestation: I, Ramonita Noriega, scribed for Holger Griffin MD on 07/14/19 at 1016. Scribe Documentation Reviewed: Yes Provider Attestation: The documentation as recorded by the Ramonita monte accurately reflects the service I personally performed and the decisions made by me, Holger Griffin MD Status of Scribe Document: Viewed
[2019-07-14 10:24] VITALS: BP 138/76
== END 2019-07-14 10:40 | disposition home or self-care (01) ==
LOC: ED 03:45
DX: F10.10 Alcohol abuse, uncomplicated (principal); R45.851 Suicidal ideations; I10 Essential (primary) hypertension; F17.210 Nicotine dependence, cigarettes, uncomplicated
CPT/HCPCS: 99282

== ENCOUNTER 2019-08-01 20:13 | Emergency (ER) | payer OTHER ==
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
[2019-08-02 07:04] VITALS: BP 138/101
== END 2019-08-02 06:25 | disposition home or self-care (01) ==
LOC: ED 20:13
DX: F10.129 Alcohol abuse with intoxication, unspecified (principal); R41.82 Altered mental status, unspecified; F17.210 Nicotine dependence, cigarettes, uncomplicated
CPT/HCPCS: 99283

== ENCOUNTER 2019-08-08 15:57 | Emergency (ER) | payer OTHER ==
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
[2019-08-08] MEDS ORDERED: LORazepam TAB(*) 1 MG PO ONE (16:39)
[2019-08-08] MEDS ORDERED: Haloperidol INJ IV/IM* 5 MG/ML AMP IM ONE (17:22)
--- NOTE | 2019-08-08 22:20 | ED ---
Progress - Progress Note Progress Note: Patient is a sign-out at 22:00 on 08/08/[address] Holger Griffin MD to Dr. Darek Correa MD at shift change, pending sobriety and disposition. Patient will be discharged with a diagnosis of alcohol intoxication. Follow up with PCP as needed. Re-Evaluation - Re-Evaluation First Eval Re-Evaluation Time: 17:22 Change: Worse Comment: Patient agitated and trying to leave. Redirected to room Second Eval Re-Evaluation Time: 17:36 Comment: Patient lit a cigarette in his room despite being advised that it is not allowed. Given haldol for agitation Third Eval Re-Evaluation Time: 21:05 Change: Unchanged Comment: Patient is still intoxicated. Fourth Eval Re-Evaluation Time: 12:13 Change: Improved Comment: At 12:13, patient is improved and ready for discharge. Course/Dx - Course Course Of Treatment: Patient is a sign-out at 22:00 on 08/08/[address] Holger Griffin MD to Dr. Darek Correa MD at shift change, pending sobriety and disposition. At 12:13, patient is improved and ready for discharge. Patient will be discharged with a diagnosis of alcohol intoxication. Follow up with PCP as needed. - Diagnoses Provider Diagnoses: Alcohol intoxication Discharge ED - Sign-Out/Discharge Documenting (check all that apply): Patient Departure - Discharge, Receiving Sign-Out Receiving patient FROM: Holger Griffin - Patient is a sign-out at 22:00 on 08/08/[address] Holger Griffin MD to Dr. Darek Correa MD at shift change, pending sobriety and disposition. - Discharge Plan Condition: Improved Disposition: HOME Patient Education Materials: Alcohol Intoxication (ED) Referrals: Dianna Castle [Primary Care Provider] - 3 Days Additional Instructions: You were seen in the emergency department for alcohol intoxication. Please don' t drink and drive. It was a pleasure taking care of you today. - Billing Disposition and Condition Condition: IMPROVED Disposition: Home - Attestation Statements Document Initiated by Scribe: Yes Documenting Scribe: Kimberly Alamo Provider For Whom Scribe is Documenting (Include Credential): Darek Correa MD Scribe Attestation: I, Kimberly Alamo, scribed for Darek Correa MD on 08/09/19 at 0625. Scribe Documentation Reviewed: Yes Provider Attestation: The documentation as recorded by the Kimberly monte accurately reflects the service I personally performed and the decisions made by me, Darek Correa MD Status of Scrkyle Document: Viewed
[2019-08-09 02:05] VITALS: BP 132/91
== END 2019-08-09 01:57 | disposition home or self-care (01) ==
LOC: ED 15:57
DX: F10.929 Alcohol use, unspecified with intoxication, unspecified (principal); I10 Essential (primary) hypertension; F41.9 Anxiety disorder, unspecified; F32.9 Major depressive disorder, single episode, unspecified; F17.210 Nicotine dependence, cigarettes, uncomplicated
CPT/HCPCS: 96372; 99285; A9270-GY; J1630

== ENCOUNTER 2019-08-16 22:05 | Emergency (ER) | payer OTHER ==
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
[2019-08-16 23:07] LABS: ABS Eosinophils 0.2 10^3/ul (0-0.6); ABS Lymphocytes 2.3 10^3/ul (1.0-4.8); ABS Monocytes 0.7 10^3/ul (0-0.8); ABS Neutrophils 3.6 10^3/ul (1.5-7.7); Eosinophil % 3.6 %; Hematocrit 43 % (42-52); Hemoglobin 14.5 g/dL (14.0-18.0); Lymphocyte % 33.6 %; Mean Corpuscular HGB Conc 34 g/dL (31-36); Mean Corpuscular Hemoglobin 30 pg (27-31); Mean Corpuscular Volume 89 fL (80-94); Mean Platelet Volume 8.6 fL (7.4-10.4); Platelet Count 181 10^3/uL (150-450); Red Blood Count 4.85 10^6 /uL (4.18-5.48); Red Cell Distribution Width 17 % (10-15); White Blood Count 6.8 10^3/uL (3.5-10.8)
[2019-08-16 23:27] LABS: ALT 62 U/L (7-52); AST 63 U/L (13-39); Albumin 4.1 g/dL (3.2-5.2); Albumin/Globulin Ratio 1.3 (1-3); Alkaline Phosphatase 76 U/L (34-104); Anion Gap 9 mmol/L (2-11); BUN/Creatinine Ratio 8.3 (8-20); Blood Urea Nitrogen 6 mg/dL (6-24); CO2 Carbon Dioxide 26 mmol/L (22-32); Calcium 8.3 mg/dL (8.6-10.3); Chloride 105 mmol/L (101-111); EGFR African American 144.2 (>60); EGFR Non-African American 119.1 (>60); Globulin 3.2 g/dL (2-4); Glucose 85 mg/dL (70-100); Potassium 3.8 mmol/L (3.5-5.0); Sodium 140 mmol/L (135-145); Total Protein 7.3 g/dL (6.4-8.9)
[2019-08-16 23:51] LABS: Acetaminophen < 15 mcg/mL; Alcohol 338 mg/dL (<10); Salicylate < 2.50 mg/dL (<30)
[2019-08-17 00:06] LABS: TSH (Thyroid Stimulating Horm) 0.69 mcIU/mL (0.34-5.60)
[2019-08-17 02:27] LABS: Urine Appearance Clear; Urine Bilirubin Negative (Negative); Urine Blood Negative (Negative); Urine Color Straw; Urine Glucose Negative (Negative); Urine Ketones Negative (Negative); Urine Nitrite Negative (Negative); Urine Protein Negative (Negative); Urine Specific Gravity 1.003 (1.010-1.030); Urine Urobilinogen Negative (Negative)
[2019-08-17 02:45] LABS: Urine Benzodiazepine Screen None Detected (None Detect); Urine Opiates Screen None Detected (None Detect)
--- NOTE | 2019-08-17 07:12 | PN ---
ED Psychiatric Progress Note Subjective: This is a 44 year-old M who is pending admission to [facility] / transfer to another psychiatric facility / discharge to home / or being observed secondary to . Pt offers no complaints at this time or is c/o . Objective: Vitals: Most recent vital signs documented below. General NAD, Alert and oriented x3. Heart: rrr at bpm Lungs: CTA or with rales, rhonchi, wheezing Laboratory: Current laboratory results documented below. Assessment: Plan: Pending psychiatric or medical consultation to observe / transfer / admit / discharge will follow up daily . Vital Signs Temp Pulse Resp BP Pulse Ox 98 F 91 20 124/70 96 08/16/19 22:16 08/17/19 06:09 08/16/19 22:16 08/17/19 06:09 08/17/19 06:09 Lab Results - Entire Visit 08/17/19 08/17/19 08/16/19 02:17 02:17 23:01 WBC RBC Hgb Hct MCV MCH MCHC RDW Plt Count MPV Neut % (Auto) Lymph % (Auto) Beckham % (Auto) Eos % (Auto) Baso % (Auto) Absolute Neuts (auto) Absolute Lymphs (auto) Absolute Monos (auto) Absolute Eos (auto) Absolute Basos (auto) Absolute Nucleated RBC Nucleated RBC % Sodium 140 Potassium 3.8 Chloride 105 Carbon Dioxide 26 Anion Gap 9 BUN 6 Creatinine 0.72 Est GFR ( Amer) 144.2 Est GFR (Non-Af Amer) 119.1 BUN/Creatinine Ratio 8.3 Glucose 85 Calcium 8.3 L Total Bilirubin 0.20 AST 63 H ALT 62 H Alkaline Phosphatase 76 Total Protein 7.3 Albumin 4.1 Globulin 3.2 Albumin/Globulin Ratio 1.3 TSH 0.69 Urine Color Straw Urine Appearance Clear Urine pH 5.0 Ur Specific [place] 1.003 L Urine Protein Negative Urine Ketones Negative Urine Blood Negative Urine Nitrate Negative Urine Bilirubin Negative Urine Urobilinogen Negative Ur Leukocyte Esterase Negative Urine Glucose Negative Salicylates < 2.50 Urine Opiates Screen None detected Acetaminophen < 15 Ur Barbiturates Screen None detected Ur Phencyclidine Scrn None detected Ur Amphetamines Screen None detected U Benzodiazepines Scrn None detected Urine Cocaine Screen None detected U Cannabinoids Screen None detected Serum Alcohol 338 H 08/16/19 23:01 WBC 6.8 RBC 4.85 Hgb 14.5 Hct 43 MCV 89 MCH 30 MCHC 34 RDW 17 H Plt Count 181 MPV 8.6 Neut % (Auto) 52.6 Lymph % (Auto) 33.6 Beckham % (Auto) 9.5 Eos % (Auto) 3.6 Baso % (Auto) 0.7 Absolute Neuts (auto) 3.6 Absolute Lymphs (auto) 2.3 Absolute Monos (auto) 0.7 Absolute Eos (auto) 0.2 Absolute Basos (auto) 0.0 Absolute Nucleated RBC 0.0 Nucleated RBC % 0.0 Sodium Potassium Chloride Carbon Dioxide Anion Gap BUN Creatinine Est GFR ( Amer) Est GFR (Non-Af Amer) BUN/Creatinine Ratio Glucose Calcium Total Bilirubin AST ALT Alkaline Phosphatase Total Protein Albumin Globulin Albumin/Globulin Ratio TSH Urine Color Urine Appearance Urine pH Ur Specific [place] Urine Protein Urine Ketones Urine Blood Urine Nitrate Urine Bilirubin Urine Urobilinogen Ur Leukocyte Esterase Urine Glucose Salicylates Urine Opiates Screen Acetaminophen Ur Barbiturates Screen Ur Phencyclidine Scrn Ur Amphetamines Screen U Benzodiazepines Scrn Urine Cocaine Screen U Cannabinoids Screen Serum Alcohol
--- NOTE | 2019-08-17 08:46 | ED ---
Progress - Progress Note Progress Note: This pt is a sign out from Dr. Shook to Dr. Chung at 0700 on 08/17/19 pending sobriety. Course/Dx - Course Course Of Treatment: Pt was signed out by Dr. Shook pending sobriety. Pt will be discharged home at this time. He requested a bus pass and was given one. - Diagnoses Provider Diagnoses: Acute alcohol intoxication Discharge ED - Sign-Out/Discharge Documenting (check all that apply): Patient Departure - Discharge home, Receiving Sign-Out Receiving patient FROM: Annmarie Shook - Discharge Plan Condition: Stable Disposition: HOME Patient Education Materials: Alcohol Intoxication (ED) Referrals: Dianna Castle [Primary Care Provider] - Additional Instructions: Follow up with your primary care provider in 2-3 days. RETURN TO THE ED FOR ANY WORSENING OR NEW SYMPTOMS. - Billing Disposition and Condition Condition: STABLE Disposition: Home - Attestation Statements Document Initiated by Scribe: Yes Documenting Scribe: Ramonita Noriega Provider For Whom Lianee is Documenting (Include Credential): David Chung MD Scribe Attestation: Ramonita Tillman, scribed for David Chung MD on 08/17/19 at 1833. Scribe Documentation Reviewed: Yes Provider Attestation: The documentation as recorded by the Ramonita monte accurately reflects the service I personally performed and the decisions made by David nick MD Status of Scribe Document: Viewed
[2019-08-17 09:04] VITALS: BP 128/62
== END 2019-08-17 09:02 | disposition home or self-care (01) ==
LOC: ED 22:05
DX: F10.129 Alcohol abuse with intoxication, unspecified (principal); S09.90XA Unspecified injury of head, initial encounter; Y09 Assault by unspecified means; Y92.9 Unspecified place or not applicable; I10 Essential (primary) hypertension; F17.210 Nicotine dependence, cigarettes, uncomplicated
CPT/HCPCS: 36415; 70450; 80053; 80307; 80320; 80329; 81003; 84443; 85025; 99283; G0480

== ENCOUNTER 2019-08-18 19:30 | Emergency (ER) | payer OTHER ==
[~2019-08-18 19:30] MED LIST: Haloperidol INJ IV/IM* 5 MG/ML AMP ONE; LORazepam INJ* 2 MG/ML 1 ML VIAL ONE; diPHENhydraMINE IV* 50 MG/ML 1 ml VIAL (BENADRYL) ONE
[2019-08-18] MEDS ORDERED: LORazepam INJ* 2 MG/ML 1 ML VIAL IM ONE (19:45)
[2019-08-18] MEDS ORDERED: diPHENhydraMINE IV* 50 MG/ML 1 ml VIAL (BENADRYL) IM ONE (19:45)
[2019-08-18] MEDS ORDERED: Haloperidol INJ IV/IM* 5 MG/ML AMP IM ONE (19:45)
--- NOTE | 2019-08-18 19:49 | ED ---
Substance Abuse/Use - HPI Summary HPI Summary: 44 year old male presents to the ED by police due to ETOH abuse and public belligerence. Patient boarded a bus when he started a vomiting and yelling. The bus boy called the police, who upon arrival were unable to subdue him. Patient was belligerent and uncooperative, even after restraining. Upon arrival at [facility] all attempts to subdue pt were unsuccessful. Patient threatened to " kick everyone's ass" if his handcuffs came off. - History Of Current Complaint Stated Complaint: 2209 PER EMS Hx Obtained From: EMS Onset/Duration of Drug/ETOH Abuse: Minutes Ingestion History: Type/Name Of Drug - ETOH Character: Angry, Stuporous Alleviating Factor(s): Nothing Associated Signs And Symptoms: Hostile, Vomiting - Allergies/Home Medications Allergies/Adverse Reactions: Allergies Allergy/AdvReac Type Severity Reaction Status Date / Time No Known Allergies Allergy Verified 08/16/19 22:18 PMH/Surg Hx/FS Hx/Imm Hx Endocrine/Hematology History: Denies: Hx Anticoagulant Therapy, Hx Blood Disorders, Hx Blood Transfusions, Hx Diabetes Cardiovascular History: Reports: Hx Hypertension Denies: Hx Aneurysm, Hx Angina, Hx Congestive Heart Failure Respiratory History: Denies: Hx Asthma GI History: Reports: Hx Gall Bladder Disease - Gallstones Denies: Hx Crohn's Disease History: Denies: Hx Acute Renal Failure, Hx Benign Prostatic Hyperplasia, Hx Renal Disease Musculoskeletal History: Reports: Hx Orthopedic Injury - Bilateral Knees Psychiatric History: Reports: Hx Anxiety, Hx Depression, Hx Inpatient Treatment , Hx of Violent Episodes Against Others, Hx Substance Abuse Denies: Hx Eating Disorder, Hx [facility] Tx, Hx Suicide Attempt - Surgical History Surgery Procedure, Year, and Place: Chest reconstruction as child, sinus reconstruction - Immunization History Date of Tetanus Vaccine: Unknown Date of Influenza Vaccine: None - Family History Known Family History: Positive: Hypertension Family History: R & n/C - Social History Alcohol Use: Daily Alcohol Amount: couple beers today Hx Substance Use: Yes Substance Use Type: Reports: None Substance Use Comment - Amount & Last Used: patient declined Hx Tobacco Use: Yes Smoking Status (MU): Heavy Every Day Tobacco Smoker Type: Cigarettes Have You Smoked in the Last Year: Yes Review of Systems - ROS Summary Review of Systems Summary: Home Medications Medication Instructions Recorded Confirmed Type Multivitamins/Minerals TAB* 1 tab PO DAILY 07/14/19 08/18/19 History [Theragran/minerals TAB*] Positive: Vomiting Positive: Slurred Speech All Other Systems Reviewed And Are Negative: Yes Physical Exam - Summary Physical Exam Summary: General: Well-developed, Well-nourished male. No acute distress. Loud. Boisterous. Threatening. Swearing. Obviously intoxicated. Smells of alcohol. HEENT: Normocephalic, Atraumatic. Eyes: Conjuctiva normal, PERRL. Ears: TMs within normal limits. Nares: (-) discharge, (-) erythema. Oropharynx: Clear, mucous membranes moist, (-) exudates. Neck: Soft, FROM, (-) lymphadenopathy, (-) thyromegaly, (-) JVD. Cardiovascular: Normal sinus rhythm, (-) murmur. Lungs: Clear to auscultation bilaterally (-) wheezes, (-) rales, (-) rhonchi. Abdomen: Soft, non-tender, non-distended, (-) organomegaly, normal bowel sounds. Back: (-) CVA tenderness Extremities: No edema. Skin: Warm, dry, (-) rash. Neuro: Alert and oriented x3, no focal deficits. Slurring words. Psychiatric: Moderately agitated. Triage Information Reviewed: Yes Vital Signs Reviewed: Yes Procedures - Sedation Patient Received Moderate/Deep Sedation with Procedure: No Diagnostics - Laboratory Result Diagrams: 08/18/19 20:04 08/18/19 20:03 Lab Statement: Any lab studies that have been ordered have been reviewed, and results considered in the medical decision making process. Course/Dx - Diagnoses Provider Diagnoses: Alcohol intoxication Discharge ED - Sign-Out/Discharge Documenting (check all that apply): Sign-Out Patient Signing out patient TO: Deejay Vidal - Patient is a signout to Dr. Vidal at change of shifts 0700 on 08/19/19. - Discharge Plan Condition: Stable Referrals: Dianna Castle [Primary Care Provider] - - Attestation Statements Document Initiated by Scribe: Yes Documenting Scribe: Jovanni Fitch Provider For Whom Scribe is Documenting (Include Credential): Dr. Annmarie Shook Scribe Attestation: Jovanni Tillman, scribed for Dr. Annmarie Shook on 08/19/19 at 0653. Status of Scribe Document: Ready
[2019-08-18 20:10] LABS: ABS Basophils 0.1 10^3/ul (0-0.2); ABS Eosinophils 0.2 10^3/ul (0-0.6); ABS Lymphocytes 2.2 10^3/ul (1.0-4.8); ABS Monocytes 0.7 10^3/ul (0-0.8); Eosinophil % 2.9 %; Hematocrit 46 % (42-52); Hemoglobin 15.5 g/dL (14.0-18.0); Lymphocyte % 30.8 %; Mean Corpuscular HGB Conc 34 g/dL (31-36); Mean Corpuscular Hemoglobin 30 pg (27-31); Mean Corpuscular Volume 89 fL (80-94); Mean Platelet Volume 8.4 fL (7.4-10.4); Platelet Count 215 10^3/uL (150-450); Red Blood Count 5.11 10^6 /uL (4.18-5.48); Red Cell Distribution Width 17 % (10-15); White Blood Count 7.2 10^3/uL (3.5-10.8)
[2019-08-18 20:30] LABS: Albumin 4.7 g/dL (3.2-5.2); Albumin/Globulin Ratio 1.4 (1-3); BUN/Creatinine Ratio 8.2 (8-20); Calcium 8.7 mg/dL (8.6-10.3); EGFR African American 141.9 (>60); EGFR Non-African American 117.3 (>60); Globulin 3.4 g/dL (2-4); Potassium 3.7 mmol/L (3.5-5.0); Total Bilirubin 0.3 mg/dL (0.2-1.0); Total Protein 8.1 g/dL (6.4-8.9)
[2019-08-18 21:18] LABS: TSH (Thyroid Stimulating Horm) 0.99 mcIU/mL (0.34-5.60)
[2019-08-19 07:09] VITALS: BP 107/61
--- NOTE | 2019-08-19 07:21 | ED ---
Progress - Progress Note Progress Note: This pt was a sign out from Dr. Shook to Dr. Vidal at shift change on at 0700 pending sobriety. Re-Evaluation - Re-Evaluation First Eval Re-Evaluation Time: 07:31 Change: Improved Comment: Pt reports feeling better now. He states he drank a lot of alcohol last night. Will ambulate pt. Second Eval Re-Evaluation Time: 07:37 Change: Improved Comment: Patient ambulated in the ED with no difficulty. He will be given a bus pass and discharged home. Course/Dx - Course Course Of Treatment: Patient is here with alcohol overdose. Patient is well- known to the emergency department. Patient had an alcohol level of 343 which was taken at 8 PM last night. Patient was cleared to leave on his own at 6 AM. Patient was able to ambulate and was going to take a bus home. - Diagnoses Provider Diagnoses: Alcohol overdose Discharge ED - Sign-Out/Discharge Documenting (check all that apply): Patient Departure - Discharge home, Receiving Sign-Out Receiving patient FROM: Annmarie Shook - Discharge Plan Condition: Stable Disposition: HOME Patient Education Materials: Alcohol Intoxication (ED), Abuse of Alcohol (ED) Referrals: Dianna Castle [Primary Care Provider] - Additional Instructions: Please stop drinking alcohol. PLEASE RETURN TO EMERGENCY DEPARTMENT FOR ANY NEW OR WORSENING SYMPTOMS. Please follow up with your primary care physician. Please make all follow-ups in 1-3 days unless I advise you otherwise. - Billing Disposition and Condition Condition: STABLE Disposition: Home - Attestation Statements Document Initiated by Iván: Yes Documenting Minhibe: Ramonita Noriega Provider For Whom Iván is Documenting (Include Credential): Deejay Vidal MD Scribe Attestation: Ramonita Tillman, scribed for Deejay Vidal MD on 08/19/19 at 0850. Scribe Documentation Reviewed: Yes Provider Attestation: The documentation as recorded by the Ramonita monte accurately reflects the service I personally performed and the decisions made by me, Deejay Vidal MD Status of Scribe Document: Viewed
== END 2019-08-19 08:00 | disposition home or self-care (01) ==
LOC: ED 19:30
DX: T51.94XA Toxic effect of unspecified alcohol, undetermined, initial encounter (principal); Y92.9 Unspecified place or not applicable; I10 Essential (primary) hypertension; F41.9 Anxiety disorder, unspecified; F32.9 Major depressive disorder, single episode, unspecified; F17.210 Nicotine dependence, cigarettes, uncomplicated; Z79.899 Other long term (current) drug therapy
CPT/HCPCS: 36415; 80053; 80320; 84443; 85025; 99285; G0480; J1200; J1630; J2060

== ENCOUNTER 2019-09-13 22:41 | Emergency (ER) | payer OTHER ==
[2019-09-13 22:52] VITALS: BP 155/83
[2019-09-13] MEDS ORDERED: Diazepam INJ CARPUJECT* 5 MG/ML IM ONE (23:00)
--- NOTE | 2019-09-14 06:51 | ED ---
Substance Abuse/Use - HPI Summary HPI Summary: 44 year old male presents to [facility] as a 2208. Patient was intoxicated on ETOH when he became boisterous in the [employer], causing a commotion. Refused help from social work and refused to talk about the possibility of abstinence. - History Of Current Complaint Chief Complaint: EDGeneral Stated Complaint: 2208 PER EMS Time Seen by Provider: 09/13/19 22:58 Hx Obtained From: Patient Onset/Duration of Drug/ETOH Abuse: Minutes Ingestion History: Type/Name Of Drug - ETOH Overdose Characteristics: Oral Timing Of Abuse: Daily Severity Initially: Severe Severity Currently: Severe Character: Manic, Stuporous Aggravating Factor(s): Nothing Alleviating Factor(s): Nothing Associated Signs And Symptoms: Hostile - Allergies/Home Medications Allergies/Adverse Reactions: Allergies Allergy/AdvReac Type Severity Reaction Status Date / Time No Known Allergies Allergy Verified 08/16/19 22:18 PMH/Surg Hx/FS Hx/Imm Hx Endocrine/Hematology History: Denies: Hx Anticoagulant Therapy, Hx Blood Disorders, Hx Blood Transfusions, Hx Diabetes Cardiovascular History: Reports: Hx Hypertension Denies: Hx Aneurysm, Hx Angina, Hx Congestive Heart Failure Respiratory History: Denies: Hx Asthma GI History: Reports: Hx Gall Bladder Disease - Gallstones Denies: Hx Crohn's Disease History: Denies: Hx Acute Renal Failure, Hx Benign Prostatic Hyperplasia, Hx Renal Disease Musculoskeletal History: Reports: Hx Orthopedic Injury - Bilateral Knees Psychiatric History: Reports: Hx Anxiety, Hx Depression, Hx Inpatient Treatment , Hx of Violent Episodes Against Others, Hx Substance Abuse Denies: Hx Eating Disorder, Hx [facility] Tx, Hx Suicide Attempt - Surgical History Surgery Procedure, Year, and Place: Chest reconstruction as child, sinus reconstruction - Immunization History Date of Tetanus Vaccine: Unknown Date of Influenza Vaccine: None Infectious Disease History: No Infectious Disease History: Denies: Traveled Outside the [place] in Last 30 Days - Family History Known Family History: Positive: Hypertension Family History: R & n/C - Social History Alcohol Use: Daily Alcohol Amount: couple beers today Hx Substance Use: Yes Substance Use Type: Reports: Other Substance Use Comment - Amount & Last Used: patient denies Hx Tobacco Use: Yes Smoking Status (MU): Heavy Every Day Tobacco Smoker Type: Cigarettes Have You Smoked in the Last Year: Yes Review of Systems Negative: Fever Positive: Other - Stuporous, boistorous All Other Systems Reviewed And Are Negative: Yes Physical Exam - Summary Physical Exam Summary: Constitutional: Well-developed, Well-nourished, Alert. (-) Distressed. Belligerent yelling and screaming. Not willing to comply. Skin: Warm, Dry HENT: Normocephalic; Atraumatic. Breath smells like ETOH. Eyes: Conjunctiva normal Neck: Musculoskeletal ROM normal neck. (-) JVD, (-) Stridor, (-) Tracheal deviation Cardio: Rhythm regular, rate normal, Heart sounds normal; Intact distal pulses; The pedal pulses are 2+ and symmetric. Radial pulses are 2+ and symmetric. Pulmonary/Chest wall: Effort normal. (-) Respiratory distress, (-) Wheezes, (-) Rales Abd: Soft, (-) tenderness, (-) Distension, (-) Guarding, (-) Rebound Musculoskeletal: (-) Edema Neuro: Alert, Oriented x3 Psych: Mood and affect Normal Triage Information Reviewed: Yes Vital Signs On Initial Exam: Initial Vitals Temp Pulse Resp BP Pulse Ox 98.2 F 93 18 155/83 96 09/13/19 22:46 09/13/19 22:46 09/13/19 22:46 09/13/19 22:46 09/13/19 22:46 Vital Signs Reviewed: Yes Procedures - Sedation Patient Received Moderate/Deep Sedation with Procedure: No Diagnostics - Vital Signs Vital Signs Temp Pulse Resp BP Pulse Ox 09/13/19 23:09 20 09/13/19 22:46 98.2 F 93 18 155/83 96 - Laboratory Lab Statement: Any lab studies that have been ordered have been reviewed, and results considered in the medical decision making process. Course/Dx - Course Course Of Treatment: 44 year old male presents to [facility] as a 2209. Patient was intoxicated on ETOH when he became boisterous in the [employer], causing a commotion. Refused help from social work and refused to talk about the possibility of abstinence. Upon exam, patient is belligerently screaming, not willing to comply. During ED course patient was given versed. Diagnosis is alcohol abuse and intoxication. Patient is feeling better and will be discharged home, follow up with PCP within 3 days. Patient was told to return to the ED for new or worsened symptoms. Pt understands and agrees with this plan. - Diagnoses Provider Diagnoses: Alcohol use disorder, Alcohol intoxication Discharge ED - Sign-Out/Discharge Documenting (check all that apply): Patient Departure - dc home - Discharge Plan Condition: Stable Disposition: HOME Patient Education Materials: Abuse of Alcohol (ED) Referrals: Dianna Castle [Primary Care Provider] - Additional Instructions: Follow up with your PCP in 2-3 days. Consider stopping drinking. - Billing Disposition and Condition Condition: STABLE Disposition: Home - Attestation Statements Document Initiated by Minhibe: Yes Documenting Scribe: Jovanni Fitch Provider For Whom Iván is Documenting (Include Credential): David Chung MD Scribe Attestation: Jovanni Tillman scribed for David Chung MD on 09/14/19 at 0723. Scribe Documentation Reviewed: Yes Provider Attestation: The documentation as recorded by the Jovanni monte accurately reflects the service I personally performed and the decisions made by me, David Chung MD Status of Scribe Document: Viewed
== END 2019-09-14 07:39 | disposition home or self-care (01) ==
LOC: ED 22:41
DX: F10.129 Alcohol abuse with intoxication, unspecified (principal); F17.210 Nicotine dependence, cigarettes, uncomplicated; F41.9 Anxiety disorder, unspecified; F32.9 Major depressive disorder, single episode, unspecified; I10 Essential (primary) hypertension
CPT/HCPCS: 96372; 99283; J3360

== ENCOUNTER 2019-09-30 13:30 | Emergency (ER) | payer SELFPAY ==
--- NOTE | 2019-09-30 13:54 | ED ---
Substance Abuse/Use - HPI Summary HPI Summary: Patient is a 44 y/o M presenting to [facility] accompanied by EMS and [employer] under 2209 status for alcohol intoxication. Patient is a level 5 caveat secondary to alcohol intoxication and unwillingness to cooperate with exam. He repeatedly notes that he is hungry and states, "I want cheeseburgers". Home medications and allergies are reviewed. - History Of Current Complaint Stated Complaint: 2208 PER EMS Hx Obtained From: EMS Hx From Patient Unobtainable Due To: Altered Mental Status Ingestion History: Type/Name Of Drug - alcohol Overdose Characteristics: Oral Character: Other - AMS Associated Signs And Symptoms: Altered Mental Status - Allergies/Home Medications Allergies/Adverse Reactions: Allergies Allergy/AdvReac Type Severity Reaction Status Date / Time No Known Allergies Allergy Verified 09/30/19 13:46 PMH/Surg Hx/FS Hx/Imm Hx Endocrine/Hematology History: Denies: Hx Anticoagulant Therapy, Hx Blood Disorders, Hx Blood Transfusions, Hx Diabetes Cardiovascular History: Reports: Hx Hypertension Denies: Hx Aneurysm, Hx Angina, Hx Congestive Heart Failure Respiratory History: Denies: Hx Asthma GI History: Reports: Hx Gall Bladder Disease - Gallstones Denies: Hx Crohn's Disease History: Denies: Hx Acute Renal Failure, Hx Benign Prostatic Hyperplasia, Hx Renal Disease Musculoskeletal History: Reports: Hx Orthopedic Injury - Bilateral Knees Psychiatric History: Reports: Hx Anxiety, Hx Depression, Hx Inpatient Treatment , Hx of Violent Episodes Against Others, Hx Substance Abuse Denies: Hx Eating Disorder, Hx [facility] Tx, Hx Suicide Attempt - Surgical History Surgery Procedure, Year, and Place: Chest reconstruction as child, sinus reconstruction - Immunization History Date of Tetanus Vaccine: Unknown Date of Influenza Vaccine: None Infectious Disease History: No Infectious Disease History: Denies: Traveled Outside the [place] in Last 30 Days - Family History Known Family History: Positive: Hypertension Family History: R & n/C - Social History Alcohol Use: Daily Alcohol Amount: couple beers today Hx Substance Use: Yes Substance Use Type: Reports: Other Substance Use Comment - Amount & Last Used: patient denies Hx Tobacco Use: Yes Smoking Status (MU): Heavy Every Day Tobacco Smoker Type: Cigarettes Have You Smoked in the Last Year: Yes Review of Systems - ROS Summary Review of Systems Summary: Patient is a level 5 caveat secondary to alcohol intoxication and unwillingness to cooperate with exam. Neurological: Other - positive - AMS All Other Systems Reviewed And Are Negative: No - Comments Additional Review of Systems Comments: Patient is a level 5 caveat secondary to alcohol intoxication and unwillingness to cooperate with exam. Physical Exam - Summary Physical Exam Summary: VITAL SIGNS: Reviewed. GENERAL: Patient is a well-developed and nourished male who is lying comfortable in the stretcher. Patient is not in any acute respiratory distress. Patient's breath smells of alcohol. HEAD AND FACE: No signs of trauma. No ecchymosis, hematomas or skull depressions. No sinus tenderness. EYES: PERRLA, EOMI x 2, No injected conjunctiva, no nystagmus. EARS: Hearing grossly intact. Ear canals and tympanic membranes are within normal limits. MOUTH: Oropharynx within normal limits. NECK: Supple, trachea is midline, no adenopathy, no JVD, no carotid bruit, no c- spine tenderness, neck with full ROM. CHEST: Symmetric, no tenderness at palpation. LUNGS: Clear to auscultation bilaterally. No wheezing or crackles. CVS: Regular rate and rhythm, S1 and S2 present, no murmurs or gallops appreciated. ABDOMEN: Soft, non-tender. No signs of distention. No rebound, no guarding, and no masses palpated. Bowel sounds are normal. EXTREMITIES: FROM in all major joints, no edema, no cyanosis or clubbing. NEURO: Alert and oriented x 3. No acute neurological deficits. PSYCH: Slightly agitated. SKIN: Dry and warm. Triage Information Reviewed: Yes Vital Signs On Initial Exam: Initial Vitals Temp Pulse Resp BP Pulse Ox 97.7 F 79 16 00/0 96 09/30/19 13:43 09/30/19 13:43 09/30/19 13:43 09/30/19 13:43 09/30/19 13:43 Vital Signs Reviewed: Yes Procedures - Sedation Patient Received Moderate/Deep Sedation with Procedure: No Diagnostics - Vital Signs Vital Signs Temp Pulse Resp BP Pulse Ox 09/30/19 13:43 97.7 F 79 16 00/0 96 - Laboratory Result Diagrams: 09/30/19 13:54 09/30/19 13:54 Lab Statement: Any lab studies that have been ordered have been reviewed, and results considered in the medical decision making process. Course/Dx - Course Assessment/Plan: Patient is a 44 y/o M presenting to [facility] accompanied by EMS and [facility] under 2209 status for alcohol intoxication. Patient is a level 5 caveat secondary to alcohol intoxication and unwillingness to cooperate with exam. He repeatedly notes that he is hungry and states, "I want cheeseburgers". Home medications and allergies are reviewed. Blood work without any significant abnormality except for calcium of 8.4, and serum alcohol of 356. This time the patient is resting comfortably. Vital signs are stable. The patient will be signed out to Dr. Shook at shift change to reassess when patient is sober and further disposition on the patient. - Diagnoses Provider Diagnoses: Alcohol intoxication Discharge ED - Sign-Out/Discharge Documenting (check all that apply): Sign-Out Patient Signing out patient TO: Annmarie Shook - Discharge Plan Condition: Stable Referrals: Dianna Castle [Primary Care Provider] - - Billing Disposition and Condition Condition: STABLE - Attestation Statements Document Initiated by Scribe: Yes Documenting Scribe: CRISELDA DAVILA Provider For Whom Scribe is Documenting (Include Credential): ZACK SANTA MD Scribe Attestation: CRISELDA Tillman scribed for ZACK SANTA MD on 09/30/19 at 1855. Scribe Documentation Reviewed: Yes Provider Attestation: The documentation as recorded by the CRISELDA monte accurately reflects the service I personally performed and the decisions made by , ZACK SANTA MD Status of Scribe Document: Viewed
[2019-09-30 14:01] LABS: Urine Appearance Clear; Urine Bilirubin Negative (Negative); Urine Blood Negative (Negative); Urine Color Straw; Urine Glucose Negative (Negative); Urine Ketones Negative (Negative); Urine Nitrite Negative (Negative); Urine Protein Negative (Negative); Urine Specific Gravity 1.003 (1.010-1.030); Urine Urobilinogen Negative (Negative)
[2019-09-30 14:06] LABS: ABS Eosinophils 0.1 10^3/ul (0-0.6); ABS Lymphocytes 2.1 10^3/ul (1.0-4.8); ABS Monocytes 0.8 10^3/ul (0-0.8); ABS Neutrophils 6.7 10^3/ul (1.5-7.7); Eosinophil % 1.4 %; Hematocrit 45 % (42-52); Hemoglobin 15.1 g/dL (14.0-18.0); Lymphocyte % 21.6 %; Mean Corpuscular HGB Conc 34 g/dL (31-36); Mean Corpuscular Hemoglobin 30 pg (27-31); Mean Corpuscular Volume 89 fL (80-94); Mean Platelet Volume 8.8 fL (7.4-10.4); Nucleated Red Blood Cells % 0.1; Platelet Count 183 10^3/uL (150-450); Red Cell Distribution Width 16 % (10-15); White Blood Count 9.8 10^3/uL (3.5-10.8)
[2019-09-30 14:19] LABS: Urine Benzodiazepine Screen None Detected (None Detect); Urine Opiates Screen None Detected (None Detect)
[2019-09-30 14:21] LABS: ALT 25 U/L (7-52); AST 35 U/L (13-39); Albumin 4.1 g/dL (3.2-5.2); Albumin/Globulin Ratio 1.4 (1-3); Alkaline Phosphatase 76 U/L (34-104); Anion Gap 10 mmol/L (2-11); BUN/Creatinine Ratio 11.6 (8-20); Blood Urea Nitrogen 8 mg/dL (6-24); CO2 Carbon Dioxide 24 mmol/L (22-32); Calcium 8.4 mg/dL (8.6-10.3); Chloride 102 mmol/L (101-111); EGFR African American 151.4 (>60); EGFR Non-African American 125.1 (>60); Glucose 82 mg/dL (70-100); Potassium 4.1 mmol/L (3.5-5.0); Sodium 136 mmol/L (135-145); Total Protein 7.1 g/dL (6.4-8.9)
[2019-09-30 14:33] LABS: Acetaminophen < 15 mcg/mL; Alcohol 386 mg/dL (<10); Salicylate < 2.50 mg/dL (<30)
[2019-09-30 14:48] LABS: TSH (Thyroid Stimulating Horm) 0.36 mcIU/mL (0.34-5.60)
[2019-09-30] MEDS ORDERED: Nicotine PATCH 21 MG/24 HR* PATCH TRANSDERM ONE (18:35)
[2019-09-30] MEDS ORDERED: Nicotine* 2MG (FRUIT FLAVOR) GUM PO PRN (18:35)
--- NOTE | 2019-09-30 19:14 | ED ---
Progress - Progress Note Progress Note: This patient was signed out from Dr. Shetty to Dr. Shook at shift change at 1900 , pending disposition, awaiting sobriety. Course/Dx - Course Course Of Treatment: This patient was signed out from Dr. Shetty to Dr. Shook at shift change at 1900, pending disposition, awaiting sobriety. Pt rested comfortably through the shift. He will be signed out to Elias at shift change 0700 on 10/01/2019. - Diagnoses Provider Diagnoses: Alcohol intoxication Discharge ED - Sign-Out/Discharge Documenting (check all that apply): Sign-Out Patient Signing out patient TO: Holger Griffin - pending sobriety Receiving patient FROM: Annmarie Shook - Discharge Plan Referrals: Dianna Castle [Primary Care Provider] - - Attestation Statements Document Initiated by Iván: Yes Documenting Scribe: Viri Lambert Provider For Whom Scribe is Documenting (Include Credential): Dr. Annmarie Shook MD Scribe Attestation: Viri Tillman scribed for Dr. Annmarie Shook MD on 10/01/19 at 0641. Scribe Documentation Reviewed: Yes Provider Attestation: The documentation as recorded by the Viri monte accurately reflects the service I personally performed and the decisions made by , Dr. Annmarie Shook MD Status of Scribe Document: Viewed
[2019-10-01 07:13] VITALS: BP 158/89
--- NOTE | 2019-10-01 07:14 | ED ---
Progress - Progress Note Progress Note: This patient was signed out from Dr. Shook to Dr. Griffin at shift change at 0700, pending disposition, awaiting sobriety. At 0700, patient was awakened and discharged home. Ambulated in ED. Alert, steady on feet. Course/Dx - Course Course Of Treatment: This patient was signed out from Dr. Shetty to Dr. Shook at shift change at 1900, pending disposition, awaiting sobriety. Pt rested comfortably through the shift. He will be signed out to Elias at shift change 0700 on 10/01/2019. - Diagnoses Provider Diagnoses: Alcohol intoxication Discharge ED - Sign-Out/Discharge Documenting (check all that apply): Patient Departure - discharge, Receiving Sign-Out Receiving patient FROM: Annmarie Shook - Patient was a signout from Dr. Shook at change of shifts at 0700 on 10/01/19. - Discharge Plan Condition: Stable Disposition: HOME Patient Education Materials: Alcohol Intoxication (ED) Referrals: Dianna Castle [Primary Care Provider] - Additional Instructions: Follow up with your primary care provider in 2-3 days. Return to the ED if you experience new or worsened symptoms. - Billing Disposition and Condition Condition: STABLE Disposition: Home - Attestation Statements Document Initiated by Scribe: Yes Documenting Scribe: Jovanni Fitch Provider For Whom Iván is Documenting (Include Credential): Holger Griffin MD Scribe Attestation: Jovanni Tillman, scribed for Holger Griffin MD on 10/01/19 at 0726. Scribe Documentation Reviewed: Yes Provider Attestation: The documentation as recorded by the mariahibJovanni wright accurately reflects the service I personally performed and the decisions made by , Holger Griffin MD Status of Scribe Document: Viewed
== END 2019-10-01 07:11 | disposition home or self-care (01) ==
LOC: ED 13:30
DX: F10.929 Alcohol use, unspecified with intoxication, unspecified (principal); I10 Essential (primary) hypertension; F41.9 Anxiety disorder, unspecified; F32.9 Major depressive disorder, single episode, unspecified; F17.210 Nicotine dependence, cigarettes, uncomplicated
CPT/HCPCS: 36415; 80053; 80307; 80320; 80329; 81003; 84443; 85025; 99284; A9270-GY; G0480

== ENCOUNTER 2019-10-03 19:45 | Emergency (ER) | payer SELFPAY ==
--- NOTE | 2019-10-03 20:03 | ED ---
Substance Abuse/Use - HPI Summary HPI Summary: 44 year old M brought in by EMS to [facility] with law enforcement on 2208 for ETOH intoxication since today 10/03/2019. LEVEL 5 CAVEAT: HPI is limited secondary to ETOH intoxication. - History Of Current Complaint Stated Complaint: 2208 PER POLICE Hx Obtained From: EMS, Other: - law enforcement - Allergies/Home Medications Allergies/Adverse Reactions: Allergies Allergy/AdvReac Type Severity Reaction Status Date / Time No Known Allergies Allergy Verified 10/01/19 00:44 PMH/Surg Hx/FS Hx/Imm Hx Endocrine/Hematology History: Denies: Hx Anticoagulant Therapy, Hx Blood Disorders, Hx Blood Transfusions, Hx Diabetes Cardiovascular History: Reports: Hx Hypertension Denies: Hx Aneurysm, Hx Angina, Hx Congestive Heart Failure Respiratory History: Denies: Hx Asthma GI History: Reports: Hx Gall Bladder Disease - Gallstones Denies: Hx Crohn's Disease History: Denies: Hx Acute Renal Failure, Hx Benign Prostatic Hyperplasia, Hx Renal Disease Musculoskeletal History: Reports: Hx Orthopedic Injury - Bilateral Knees Psychiatric History: Reports: Hx Anxiety, Hx Depression, Hx Inpatient Treatment , Hx of Violent Episodes Against Others, Hx Substance Abuse Denies: Hx Eating Disorder, Hx Community Mental Health Tx, Hx Suicide Attempt - Surgical History Surgery Procedure, Year, and Place: Chest reconstruction as child, sinus reconstruction - Immunization History Date of Tetanus Vaccine: Unknown Date of Influenza Vaccine: None Infectious Disease History: No Infectious Disease History: Denies: Traveled Outside the [place] in Last 30 Days - Family History Known Family History: Positive: Hypertension, Other - ETOH - Social History Alcohol Use: Daily Alcohol Amount: couple beers today Hx Substance Use: Yes Hx Tobacco Use: Yes Smoking Status (MU): Heavy Every Day Tobacco Smoker Type: Cigarettes Have You Smoked in the Last Year: Yes Review of Systems Negative: Fever Positive: Other - ETOH intoxication All Other Systems Reviewed And Are Negative: Yes Physical Exam - Summary Physical Exam Summary: Appearance: Patient is obtunded Skin: Warm, dry, no obvious rash Eyes: sclera anicteric, no conjunctival pallor ENT: mucous membranes moist, pharynx appears normal Neck: Supple, nontender Respiratory: Clear to auscultation, no signs of respiratory distress Cardiovascular: Normal S1, S2. No murmurs. Normal distal pulses in tibial and radial bilaterally. Abdomen: Soft, nontender, normal active bowel sounds present Musculoskeletal: Normal, Strength/ROM Intact Neurological: Patient is obtunded Psychiatric: Patient is obtunded Triage Information Reviewed: Yes Vital Signs On Initial Exam: Initial Vitals Temp Pulse Resp BP Pulse Ox 98.0 F 64 10 127/83 98 10/03/19 19:48 10/03/19 19:48 10/03/19 19:48 10/03/19 19:48 10/03/19 19:48 Vital Signs Reviewed: Yes Procedures - Sedation Patient Received Moderate/Deep Sedation with Procedure: No Diagnostics - Vital Signs Vital Signs Temp Pulse Resp BP Pulse Ox 10/03/19 19:48 98.0 F 64 10 127/83 98 - Laboratory Lab Statement: Any lab studies that have been ordered have been reviewed, and results considered in the medical decision making process. Course/Dx - Course Course Of Treatment: 44 year old M brought in by EMS with law enforcement for ETOH intoxication since today 10/03/2019. Upon exam, the patient is obtunded. Patient is ambulating in the ED without difficulty. He is alert and oriented x3. Patient will be discharged home with follow up from his primary care provider. He was referred to alcohol abuse counseling. Patient was instructed to return to Emergency Department for new or worsening symptoms. Patient understands and is agreeable to this plan. - Diagnoses Provider Diagnoses: Alcohol intoxication Discharge ED - Sign-Out/Discharge Documenting (check all that apply): Patient Departure - Discharge Plan Condition: Improved Disposition: HOME Patient Education Materials: Abuse of Alcohol (ED) Referrals: [facility] [Outside] Dianna Castle [Primary Care Provider] - - Attestation Statements Document Initiated by Scribe: Yes Documenting Scribe: Yessi Roque Provider For Whom Scribe is Documenting (Include Credential): Darek Correa MD Scribe Attestation: Yessi Tillman, scribed for Darek Correa MD on 10/04/19 at 0628.
[2019-10-04 07:03] VITALS: BP 0/0
== END 2019-10-04 07:02 | disposition home or self-care (01) ==
LOC: ED 19:45
DX: F10.929 Alcohol use, unspecified with intoxication, unspecified (principal); I10 Essential (primary) hypertension; F41.9 Anxiety disorder, unspecified; F32.9 Major depressive disorder, single episode, unspecified; F17.210 Nicotine dependence, cigarettes, uncomplicated
CPT/HCPCS: 99283

== ENCOUNTER 2019-10-20 17:34 | Emergency (ER) | payer SELFPAY ==
--- NOTE | 2019-10-20 17:45 | ED ---
Lower Extremity - HPI Summary HPI Summary: 44-year-old male presents to the emergency department today complaining of bilateral foot pain 3 weeks. Patient states "I have jungle foot". Patient states his boots up and went for weeks which caused him to have 8 out of 10 pain to the bilateral feet. Patient has trench foot bilaterally with no evidence of secondary infection. Wounds are noted to the entire plantar aspect of the bilateral feet and most of the dorsal aspect bilateral feet. There are small open wounds consistent with stage II ulcers. Patient otherwise denies fever, chest pain, abdominal pain, pain with urination, nausea, vomiting, diarrhea. Patient has not taken any medication prior to arrival. Patient has not taken any antibiotics in the last 30 days. The patient appears intoxicated. - History of Current Complaint Chief Complaint: EDExtremityLower Stated Complaint: POSS INFECTION ON FT PER EMS Time Seen by Provider: 10/20/19 17:43 Hx Obtained From: Patient Onset of Pain: Prior to Arrival Onset/Duration: Weeks Severity Initially: Mild Severity Currently: Severe Pain Intensity: 10 Pain Scale Used: 0-10 Numeric Timing: Constant Character Of Pain: Aching Associated Signs And Symptoms: Positive: Redness Aggravating Factor(s): Ambulation, Movement, Weight Bearing, Stairs Alleviating Factor(s): Rest Able to Bear Weight: Yes - Allergies/Home Medications Allergies/Adverse Reactions: Allergies Allergy/AdvReac Type Severity Reaction Status Date / Time No Known Allergies Allergy Verified 10/22/19 01:17 Home Medications: Home Medications NK [No Home Medications Reported] 10/01/19 [History Confirmed 10/22/19] PMH/Surg Hx/FS Hx/Imm Hx Endocrine/Hematology History: Denies: Hx Anticoagulant Therapy, Hx Blood Disorders, Hx Blood Transfusions, Hx Diabetes Cardiovascular History: Reports: Hx Hypertension Denies: Hx Aneurysm, Hx Angina, Hx Congestive Heart Failure Respiratory History: Denies: Hx Asthma GI History: Reports: Hx Gall Bladder Disease - Gallstones Denies: Hx Crohn's Disease History: Denies: Hx Acute Renal Failure, Hx Benign Prostatic Hyperplasia, Hx Renal Disease Musculoskeletal History: Reports: Hx Orthopedic Injury - Bilateral Knees Psychiatric History: Reports: Hx Anxiety, Hx Depression, Hx Inpatient Treatment , Hx of Violent Episodes Against Others, Hx Substance Abuse Denies: Hx Eating Disorder, Hx Community Mental Health Tx, Hx Suicide Attempt - Surgical History Surgery Procedure, Year, and Place: Chest reconstruction as child, sinus reconstruction - Immunization History Date of Tetanus Vaccine: Unknown Date of Influenza Vaccine: None Infectious Disease History: No Infectious Disease History: Denies: Traveled Outside the [place] in Last 30 Days - Family History Known Family History: Positive: Hypertension, Other - ETOH - Social History Alcohol Use: Daily Alcohol Amount: couple beers today Hx Substance Use: Yes Substance Use Type: Reports: Other Substance Use Comment - Amount & Last Used: patient denies Hx Tobacco Use: Yes Smoking Status (MU): Heavy Every Day Tobacco Smoker Type: Cigarettes Have You Smoked in the Last Year: Yes Review of Systems Constitutional: Negative Eyes: Negative ENT: Negative Cardiovascular: Negative Respiratory: Negative Gastrointestinal: Negative Genitourinary: Negative Musculoskeletal: Negative Positive: Rash Positive: Slurred Speech - intoxicated Psychological: Normal All Other Systems Reviewed And Are Negative: Yes Physical Exam - Summary Physical Exam Summary: Patient appears intoxicated and conversation. Patient is in no acute distress. Action of the bilateral feet shows evidence of trench foot bilaterally. There is macerated, pallorous deteriorated skin to the plantar aspect of both feet bilaterally extending over the entire length. There is a small open wound to the dorsal aspect of the right foot. No evidence of secondary infection. Triage Information Reviewed: Yes Vital Signs On Initial Exam: Initial Vitals Temp Pulse Resp BP Pulse Ox 97.5 F 89 16 146/91 98 10/20/19 17:38 10/20/19 17:38 10/20/19 17:38 10/20/19 17:38 10/20/19 17:38 Vital Signs Reviewed: Yes Appearance: Positive: Well-Appearing, No Pain Distress, Well-Nourished Skin: Positive: Warm, Skin Color Reflects Adequate Perfusion Eyes: Positive: EOMI, LOCO ENT: Positive: Hearing grossly normal Respiratory/Lung Sounds: Positive: Clear to Auscultation, Breath Sounds Present Cardiovascular: Positive: RRR, S1, S2 Musculoskeletal: Positive: Strength/ROM Intact Neurological: Positive: Sensory/Motor Intact, Alert, Oriented to Person Place, Time, Normal Gait, Facial Symmetry, Speech Normal Psychiatric: Positive: Normal, Affect/Mood Appropriate AVPU Assessment: Alert Procedures - Sedation Patient Received Moderate/Deep Sedation with Procedure: No Diagnostics - Vital Signs Vital Signs Temp Pulse Resp BP Pulse Ox 10/20/19 17:38 97.5 F 89 16 146/91 98 - Laboratory Lab Statement: Any lab studies that have been ordered have been reviewed, and results considered in the medical decision making process. Lower Extremity Course/Dx - Course Course Of Treatment: Patient was evaluated in the emergency department today for bilateral trench foot. Vitals noted and stable. Patient afebrile. No evidence of secondary infection. Patient appears highly intoxicated in the emergency department. Patient became combative and stating he wanted to leave however was explained him that he cannot do this due to being intoxicated. Patient was medically sedated using 50 mg Benadryl, 2 mg Ativan, 5 mg Haldol as he was deemed a harm to himself and others due to his behavior and intoxication. Patient was placed on constant observation for the duration of his restraint. Pt signed out to Dr. Correa at 0230 on 10/21/19. - Diagnoses Differential Diagnosis/HQI/PQRI: Positive: Cellulitis, Infection, Osteomyelitis , Other - Alcohol intoxication, trench foot Provider Diagnoses: Trench foot, Alcohol intoxication Discharge ED - Sign-Out/Discharge Documenting (check all that apply): Sign-Out Patient Signing out patient TO: Darek Correa Receiving patient FROM: Zack Jones - Discharge Plan Condition: Improved Disposition: HOME Patient Education Materials: Abuse of Alcohol (ED) Referrals: Dianna Castle [Primary Care Provider] - 3 Days Additional Instructions: Measures that may be used to reduce the risk of developing trench foot include the following: Avoid cold/wet conditions. If it is not possible to avoid cold, wet conditions, limit exposure as much as possible. In settings, avoid re-exposing casualties who have previously sustained NFCI, especially if they are sensitized to cold. Wear clothing that provides thermal protection but is not constricting. Change socks regularly. This is especially important for foot gear. Feet should be kept as dry as possible. Vapor barrier boots can be effective in retaining warmth and avoiding wet feet but can become wet from within. Foot care should include changing into dry socks two or three times daily in high-risk conditions. Stay active. Movement is important to maintain adequate circulation in the extremities. Avoid prolonged dependency of the feet. Avoid malnutrition, dehydration, and fatigue. Especially in settings, recognize that stress can cause vasoconstriction. Education and training for cold weather operations may help to avoid stress. Regular rotation of personnel out of cold-exposure environments is the most effective measure against NFCI [2]. The optimum timing and duration of removal from a cold environment is not known. Use of grease or oils is not helpful and is likely harmful [11]. Reduce alcohol intake. Please follow up with her primary care provider in 3-5 days for further evaluation and management. Be sure to keep your feet dry and covered. Change socks regularly. Return to the emergency department immediately if you develop any new or worsening symptoms. - Billing Disposition and Condition Condition: IMPROVED Disposition: Home - Attestation Statements Provider Attestation: I have seen the patient with the BOB and agree with the plan and documentation below except as noted:44 -year-old male presents with acute alcohol intoxication and trench foot. On arrival patient agitated, given medications for safety. Holger Griffin MD
[2019-10-20] MEDS ORDERED: LORazepam INJ* 2 MG/ML 1 ML VIAL ONE ×2 (17:56→18:00)
[2019-10-20] MEDS ORDERED: Haloperidol INJ IV/IM* 5 MG/ML AMP IM ONE (17:59)
[2019-10-20] MEDS ORDERED: Lorazepam PYXIS KEY PRN (17:59)
[2019-10-20] MEDS ORDERED: LORazepam INJ* 2 MG/ML 1 ML VIAL IM ONE (17:59)
[2019-10-20] MEDS ORDERED: diPHENhydraMINE IV* 50 MG/ML 1 ml VIAL (BENADRYL) IM ONE (18:00)
[2019-10-20] MEDS ORDERED: diPHENhydraMINE IV* 50 MG/ML 1 ml VIAL (BENADRYL) ONE (18:00)
[2019-10-20] MEDS ORDERED: Haloperidol INJ IV/IM* 5 MG/ML AMP ONE (18:00)
--- NOTE | 2019-10-21 04:27 | ED ---
Progress - Progress Note Progress Note: Receiving sign-out from DEYA Jones pending sobriety. Patient remained stable throughout. Patient became sober and ready to go home. Plan to discharge was discussed with the patient understands and agrees. Course/Dx - Course Course Of Treatment: Receiving sign-out from DEYA Jones pending sobriety. Patient remained stable throughout. Patient became sober and ready to go home. He is upset about his feet not being addressed. I explained they are getting like this because of his lifestyle and he needs to keep them clean and dry and stay open to air for at least part of the day. Prognosis is poor as he continues his alcoholic lifestyle. - Diagnoses Provider Diagnoses: Trench foot, Alcohol intoxication Discharge ED - Sign-Out/Discharge Documenting (check all that apply): Patient Departure - Discharge - Discharge Plan Condition: Improved Disposition: HOME Patient Education Materials: Abuse of Alcohol (ED) Referrals: Dianna Castle [Primary Care Provider] - 3 Days Additional Instructions: Measures that may be used to reduce the risk of developing trench foot include the following: Avoid cold/wet conditions. If it is not possible to avoid cold, wet conditions, limit exposure as much as possible. In settings, avoid re-exposing casualties who have previously sustained NFCI, especially if they are sensitized to cold. Wear clothing that provides thermal protection but is not constricting. Change socks regularly. This is especially important for foot gear. Feet should be kept as dry as possible. Vapor barrier boots can be effective in retaining warmth and avoiding wet feet but can become wet from within. Foot care should include changing into dry socks two or three times daily in high-risk conditions. Stay active. Movement is important to maintain adequate circulation in the extremities. Avoid prolonged dependency of the feet. Avoid malnutrition, dehydration, and fatigue. Especially in settings, recognize that stress can cause vasoconstriction. Education and training for cold weather operations may help to avoid stress. Regular rotation of personnel out of cold-exposure environments is the most effective measure against NFCI [2]. The optimum timing and duration of removal from a cold environment is not known. Use of grease or oils is not helpful and is likely harmful [11]. Reduce alcohol intake. Please follow up with her primary care provider in 3-5 days for further evaluation and management. Be sure to keep your feet dry and covered. Change socks regularly. Return to the emergency department immediately if you develop any new or worsening symptoms. - Billing Disposition and Condition Condition: IMPROVED Disposition: Home - Attestation Statements Document Initiated by Iván: Yes Documenting Minhibe: Jamal Jimenes Provider For Whom Iván is Documenting (Include Credential): Darek Correa MD Scribe Attestation: Jamal Tillman, scribed for Darek Correa MD on 10/21/19 at 2031. Scribe Documentation Reviewed: Yes Provider Attestation: The documentation as recorded by the Jamal monte accurately reflects the service I personally performed and the decisions made by me, Darek Correa MD Status of Scribe Document: Viewed
[2019-10-21] MEDS ORDERED: Acetaminophen TAB* 325 MG PO ONE (05:27)
[2019-10-21 06:58] VITALS: BP 124/66
== END 2019-10-21 07:44 | disposition home or self-care (01) ==
LOC: ED 17:34
DX: T69.022A Immersion foot, left foot, initial encounter (principal); T69.021A Immersion foot, right foot, initial encounter; F10.929 Alcohol use, unspecified with intoxication, unspecified; I10 Essential (primary) hypertension; F41.9 Anxiety disorder, unspecified; F32.9 Major depressive disorder, single episode, unspecified; F17.210 Nicotine dependence, cigarettes, uncomplicated
CPT/HCPCS: 96372; 99285; A9270-GY; J1200; J1630; J2060

== ENCOUNTER 2019-10-22 01:12 | Emergency (ER) | payer SELFPAY ==
--- NOTE | 2019-10-22 01:54 | ED ---
Substance Abuse/Use - HPI Summary HPI Summary: This patient is a 44 year old male presenting to [facility] with a chief complaint of ETOH intoxication and foot pain. Per EMS, pt was yelling in the [place] and some bystanders called the police d/t pt's intoxication, pt reports foot pain so police sent to hospital for eval. [place] [facility] [place]. He reports he has 'jungle rot" on both feet. He states he had "a few drinks" tonight. - History Of Current Complaint Chief Complaint: EDSubstanceAbuse Stated Complaint: FOOT PAIN PER EMS Time Seen by Provider: 10/22/19 01:12 Hx Obtained From: Patient Overdose Characteristics: Oral - ETOH - Allergies/Home Medications Allergies/Adverse Reactions: Allergies Allergy/AdvReac Type Severity Reaction Status Date / Time No Known Allergies Allergy Verified 10/22/19 01:17 Home Medications: Home Medications NK [No Home Medications Reported] 10/01/19 [History Confirmed 10/22/19] PMH/Surg Hx/FS Hx/Imm Hx Endocrine/Hematology History: Denies: Hx Anticoagulant Therapy, Hx Blood Disorders, Hx Blood Transfusions, Hx Diabetes Cardiovascular History: Reports: Hx Hypertension Denies: Hx Aneurysm, Hx Angina, Hx Congestive Heart Failure Respiratory History: Denies: Hx Asthma GI History: Reports: Hx Gall Bladder Disease - Gallstones Denies: Hx Crohn's Disease History: Denies: Hx Acute Renal Failure, Hx Benign Prostatic Hyperplasia, Hx Renal Disease Musculoskeletal History: Reports: Hx Orthopedic Injury - Bilateral Knees Psychiatric History: Reports: Hx Anxiety, Hx Depression, Hx Inpatient Treatment , Hx of Violent Episodes Against Others, Hx Substance Abuse Denies: Hx Eating Disorder, Hx Community Mental Health Tx, Hx Suicide Attempt - Surgical History Surgery Procedure, Year, and Place: Chest reconstruction as child, sinus reconstruction - Immunization History Date of Tetanus Vaccine: Unknown Date of Influenza Vaccine: None Infectious Disease History: No Infectious Disease History: Denies: Traveled Outside the [place] in Last 30 Days - Family History Known Family History: Positive: Hypertension, Other - ETOH - Social History Alcohol Use: Daily Alcohol Amount: large quantity of ETOH daily Hx Substance Use: Yes Substance Use Type: Reports: Other Substance Use Comment - Amount & Last Used: patient denies Hx Tobacco Use: Yes Smoking Status (MU): Heavy Every Day Tobacco Smoker Type: Cigarettes Have You Smoked in the Last Year: Yes Review of Systems - ROS Summary Review of Systems Summary: NK [No Home Medications Reported] 10/01/19 [History Confirmed 10/22/19] Positive: Other - Foot pain Neurological/Mental Status: Other - ETOH intoxication All Other Systems Reviewed And Are Negative: Yes Physical Exam - Summary Physical Exam Summary: Appearance: Well-appearing, Well-nourished, lying in bed comfortably Skin: Warm, dry, no obvious rash Eyes: sclera anicteric, no conjunctival pallor ENT: mucous membranes moist, pharynx appears normal Neck: Supple, nontender Respiratory: Clear to auscultation, no signs of respiratory distress Cardiovascular: Normal S1, S2. No murmurs. Normal distal pulses in tibial and radial bilaterally. Abdomen: Soft, nontender, normal active bowel sounds present Musculoskeletal: Normal, Strength/ROM Intact Neurological: A&Ox3, awake and alert, mentation is normal, speech is fluent and appropriate Psychiatric: affect is normal, does not appear anxious or depressed Triage Information Reviewed: Yes Vital Signs On Initial Exam: Initial Vitals Temp Pulse Resp BP Pulse Ox 97.9 F 87 18 130/91 97 10/22/19 01:21 10/22/19 01:21 10/22/19 01:21 10/22/19 01:21 10/22/19 01:21 Vital Signs Reviewed: Yes Procedures - Sedation Patient Received Moderate/Deep Sedation with Procedure: No Diagnostics - Vital Signs Vital Signs Temp Pulse Resp BP Pulse Ox 10/22/19 01:21 97.9 F 87 18 130/91 97 - Laboratory Lab Statement: Any lab studies that have been ordered have been reviewed, and results considered in the medical decision making process. Course/Dx - Course Course Of Treatment: This patient is a 44 year old male presenting to [facility] with a chief complaint of ETOH intoxication and foot pain. After several hours, the patient became sober and was ready for discharge. Plan for discharge was discussed with the patient and he understands and agrees with the plan. - Diagnoses Provider Diagnoses: Alcohol intoxication Discharge ED - Sign-Out/Discharge Documenting (check all that apply): Patient Departure - Discharge - Discharge Plan Condition: Improved Disposition: HOME Patient Education Materials: Abuse of Alcohol (ED) Referrals: Dianna Castle [Primary Care Provider] - Additional Instructions: PLEASE RETURN TO EMERGENCY DEPARTMENT FOR ANY NEW OR WORSENING SYMPTOMS. Please follow up with your primary care physician. Please make all follow-ups in 1-3 days unless I advise you otherwise. - Billing Disposition and Condition Condition: IMPROVED Disposition: Home - Attestation Statements Document Initiated by Iván: Yes Documenting Scribe: Jamal Jimenes Provider For Whom Iván is Documenting (Include Credential): MD Minh Blantonibkyle Attestation: IJamal, scribed for Darek Correa MD on 10/22/19 at 2054. Scribe Documentation Reviewed: Yes Provider Attestation: The documentation as recorded by the Jamal monte accurately reflects the service I personally performed and the decisions made by me, Daerk Correa MD Status of Scrkyle Document: Viewed
--- NOTE | 2019-10-22 08:37 | ED ---
Progress - Progress Note Progress Note: Patient is a sign-out at 07:00 on 10/22/[address] Darek Correa MD to Dr. Deejay Vidal MD at shift change, pending further workup and disposition. At 08:34, we provided dressings for his feet and some dry sock. He is sober and ready for discharge. Patient will be discharged with a diagnosis of alcohol intoxication. Follow up with PCP in 2-3 days. Re-Evaluation - Re-Evaluation First Eval Re-Evaluation Time: 08:34 Change: Improved Comment: At 08:34, we provided dressings for his feet and some dry sock. He is sober and ready for discharge. Course/Dx - Course Course Of Treatment: This patient is a 44 year old male presenting to [facility] with a chief complaint of ETOH intoxication and foot pain. After several hours, the patient became sober and was ready for discharge. Plan for discharge was discussed with the patient and he understands and agrees with the plan. - Diagnoses Provider Diagnoses: Alcohol intoxication Discharge ED - Sign-Out/Discharge Documenting (check all that apply): Patient Departure - Discharge, Receiving Sign-Out Receiving patient FROM: Darek Correa - Patient is a sign-out at 07:00 on 10/[address] Darek Correa MD to Dr. Deejay Vidal MD at shift change, pending further workup and disposition. - Discharge Plan Condition: Improved Disposition: HOME Patient Education Materials: Abuse of Alcohol (ED) Referrals: Dianna Castle [Primary Care Provider] - Additional Instructions: PLEASE RETURN TO EMERGENCY DEPARTMENT FOR ANY NEW OR WORSENING SYMPTOMS. Please follow up with your primary care physician. Please make all follow-ups in 1-3 days unless I advise you otherwise. - Billing Disposition and Condition Condition: IMPROVED Disposition: Home - Attestation Statements Document Initiated by Iván: Yes Documenting Scribe: Kimberly Alamo Provider For Whom Iván is Documenting (Include Credential): Deejay Vidal MD Scribe Attestation: Kimberly Tillman scribed for Deejay Vidal MD on 10/22/19 at 0910. Scribe Documentation Reviewed: Yes Provider Attestation: The documentation as recorded by the Kimberly monte accurately reflects the service I personally performed and the decisions made by me, Deejay Vidal MD Status of Scribe Document: Viewed
[2019-10-22] MEDS ORDERED: Ibuprofen TAB* 600 MG PO ONE (08:51)
[2019-10-22 09:01] VITALS: BP 136/84
== END 2019-10-22 09:00 | disposition home or self-care (01) ==
LOC: ED 01:12
DX: F10.929 Alcohol use, unspecified with intoxication, unspecified (principal); F41.9 Anxiety disorder, unspecified; I10 Essential (primary) hypertension; F32.9 Major depressive disorder, single episode, unspecified; F17.210 Nicotine dependence, cigarettes, uncomplicated
CPT/HCPCS: 99282; A9270-GY

== ENCOUNTER 2019-10-23 18:12 | Emergency (ER) | payer SELFPAY ==
[2019-10-23] MEDS ORDERED: diPHENhydraMINE IV* 50 MG/ML 1 ml VIAL (BENADRYL) IM ONE (18:22)
[2019-10-23] MEDS ORDERED: Haloperidol INJ IV/IM* 5 MG/ML AMP IM ONE (18:22)
[2019-10-23] MEDS ORDERED: LORazepam INJ* 2 MG/ML 1 ML VIAL IM ONE (18:22)
--- NOTE | 2019-10-23 18:23 | ED ---
Substance Abuse/Use - HPI Summary HPI Summary: The patient is a 44-year-old male arriving via ambulance accompanied by police to [facility] emergency department as 2208 with concerns for alcohol intoxication today. Per police, there had been multiple calls surrounding the patients well- being. He ultimately left the area but was later found [place]. He had fallen and appeared sleepy. Past medical history includes anxiety, depression, inpatient treatment, violent episodes against others, hypertension. Heavy smoker, daily alcohol use, substance use history. Medications reviewed. Allergies noted. Level 5 caveat secondary to alcohol intoxication. History obtained from police and medical records. Home Medications Medication Instructions Recorded Confirmed Type NK [No Home Medications Reported] 10/01/19 10/22/19 History - History Of Current Complaint Stated Complaint: 2208 PER EMS Hx Obtained From: Medical Records, Other: - police Hx From Patient Unobtainable Due To: Other - Level 5 caveat secondary to alcohol intoxication. Onset/Duration of Drug/ETOH Abuse: Years Timing Of Abuse: Daily Character: Stuporous Related Hx: Prior Drug Abuse Counseling/Admission, Prior Psych Admission - Allergies/Home Medications Allergies/Adverse Reactions: Allergies Allergy/AdvReac Type Severity Reaction Status Date / Time No Known Allergies Allergy Verified 10/22/19 01:17 Home Medications: Home Medications NK [No Home Medications Reported] 10/01/19 [History Confirmed 10/23/19] PMH/Surg Hx/FS Hx/Imm Hx Endocrine/Hematology History: Denies: Hx Anticoagulant Therapy, Hx Blood Disorders, Hx Blood Transfusions, Hx Diabetes Cardiovascular History: Reports: Hx Hypertension Denies: Hx Aneurysm, Hx Angina, Hx Congestive Heart Failure Respiratory History: Denies: Hx Asthma GI History: Reports: Hx Gall Bladder Disease - Gallstones Denies: Hx Crohn's Disease History: Denies: Hx Acute Renal Failure, Hx Benign Prostatic Hyperplasia, Hx Renal Disease Musculoskeletal History: Reports: Hx Orthopedic Injury - Bilateral Knees Psychiatric History: Reports: Hx Anxiety, Hx Depression, Hx Inpatient Treatment , Hx of Violent Episodes Against Others, Hx Substance Abuse Denies: Hx Eating Disorder, Hx Community Mental Health Tx, Hx Suicide Attempt - Surgical History Surgery Procedure, Year, and Place: Chest reconstruction as child, sinus reconstruction - Immunization History Date of Tetanus Vaccine: Unknown Date of Influenza Vaccine: None - Family History Known Family History: Positive: Hypertension, Other - ETOH - Social History Alcohol Use: Daily Alcohol Amount: large quantity of ETOH daily Hx Substance Use: Yes Substance Use Type: Reports: Other Substance Use Comment - Amount & Last Used: patient denies Hx Tobacco Use: Yes Smoking Status (MU): Heavy Every Day Tobacco Smoker Type: Cigarettes Have You Smoked in the Last Year: Yes Review of Systems Positive: Other - alcohol intoxication All Other Systems Reviewed And Are Negative: No - Comments Additional Review of Systems Comments: Level 5 caveat secondary to alcohol intoxication. Physical Exam - Summary Physical Exam Summary: Appearance: The patient is well-nourished in no acute distress and in no acute pain. Skin: The skin is warm and dry, and skin color reflects adequate perfusion. HEENT: The head is normocephalic and atraumatic. The pupils are equal and reactive. The conjunctivae are clear and without drainage. Nares are patent and without drainage. Mouth reveals moist mucous membranes, and the throat is without erythema and exudate. The external ears are intact. The ear canals are patent and without drainage. The tympanic membranes are intact. Neck: The neck is supple with full range of motion and non-tender. There are no carotid bruits. There is no neck vein distension. Respiratory: Chest is non-tender. Lungs are clear to auscultation and breath sounds are symmetrical and equal. Cardiovascular: Heart is regular rate and rhythm. There is no murmur or rub auscultated. There is no peripheral edema and pulses are symmetrical and equal. Abdomen: The abdomen is soft and non-tender. There are normal bowel sounds heard in all four quadrants and there is no organomegaly palpated. Musculoskeletal: There is no back tenderness noted. Extremities are non-tender with full range of motion. There is good capillary refill. There is no peripheral edema or calf tenderness elicited. Neurological: Patient is alert and oriented to person, place and time. The patient has symmetrical motor strength in all four extremities. Cranial nerves are grossly intact. Deep tendon reflexes are symmetrical and equal in all four extremities. Psychiatric: The patient has an appropriate affect and does not exhibit any anxiety or depression. Triage Information Reviewed: Yes Vital Signs Reviewed: Yes Completion Of Physical Exam Limited Due To: Level 5, Other - alcohol intoxication Procedures - Sedation Patient Received Moderate/Deep Sedation with Procedure: No Course/Dx - Course Course Of Treatment: Mr. Biswas was brought in on this intoxicated. He is presented in this fashion multiple times. There was no sign of trauma. He has been violent in the past and was uncooperative on arrival. He was given chemical restraint and we're waiting for him to sober up. - Diagnoses Provider Diagnoses: Alcohol intoxication, Antisocial personality disorder Discharge ED - Sign-Out/Discharge Documenting (check all that apply): Sign-Out Patient Signing out patient TO: David Chung - Discharge Plan Condition: Stable Referrals: Dianna Castle [Primary Care Provider] - - Billing Disposition and Condition Condition: STABLE - Attestation Statements Document Initiated by Scribe: Yes Documenting Scribe: Ingrid Guerra Provider For Whom Minhibe is Documenting (Include Credential): Dr. Darek Lee MD Scribe Attestation: Ingrid Tillman scribed for Dr. Darek Lee MD on 10/23/19 at 2000. Scribe Documentation Reviewed: Yes Provider Attestation: The documentation as recorded by the Ingrid monte accurately reflects the service I personally performed and the decisions made by me, Dr. Darek Lee MD Status of Scribe Document: Viewed - Assessment for Patient Restraint Face to Face Encounter Date: 10/23/19 Face to Face Encounter Time: 19:25
[2019-10-23] MEDS ORDERED: Lorazepam PYXIS KEY ONE (18:26)
--- NOTE | 2019-10-23 22:34 | ED ---
Progress - Progress Note Progress Note: This pt is a sign out to Dr. David Chung from Dr. Darek Lee at shift change 2200 10/23/2019 pending sobriety and Dispo. Course/Dx - Course Course Of Treatment: This pt is a sign out to Dr. David Chung from Dr. Darek Lee at shift change 2200 10/23/2019 pending sobriety and Dispo. Pt was sober enough on re-evaluation at 0450 and will be discharged home with a Dx of acute alcohol intoxication and antisocial personality disorder. - Diagnoses Provider Diagnoses: Alcohol intoxication, Antisocial personality disorder Discharge ED - Sign-Out/Discharge Documenting (check all that apply): Patient Departure - discharge - Discharge Plan Condition: Good Disposition: HOME Patient Education Materials: Abuse of Alcohol (ED) Referrals: Dianna Castle [Primary Care Provider] - 2 Days Additional Instructions: PLEASE RETURN TO THE EMERGENCY DEPARTMENT FOR ANY NEW OR WORSENING SYMPTOMS. FOLLOW UP WITH YOUR PRIMARY CARE PROVIDER IN 1-3 DAYS. - Billing Disposition and Condition Condition: GOOD Disposition: Home - Attestation Statements Document Initiated by Minhibe: Yes Documenting Scribe: Ramirez Box Provider For Whom Iván is Documenting (Include Credential): David Chung MD Scribe Attestation: Ramirez Tillman, scribed for David Chung MD on 10/24/19 at 0558. Scribe Documentation Reviewed: Yes Provider Attestation: The documentation as recorded by the Ramirez monte accurately reflects the service I personally performed and the decisions made by me, David Chung MD Status of Scribe Document: Viewed
[2019-10-24] MEDS ORDERED: Acetaminophen TAB* 325 MG PO ONE (04:57)
[2019-10-24 05:16] VITALS: BP 134/74
== END 2019-10-24 05:15 | disposition home or self-care (01) ==
LOC: ED 18:12
DX: F10.129 Alcohol abuse with intoxication, unspecified (principal); F60.2 Antisocial personality disorder; F17.210 Nicotine dependence, cigarettes, uncomplicated; I10 Essential (primary) hypertension; F41.9 Anxiety disorder, unspecified; F32.9 Major depressive disorder, single episode, unspecified
CPT/HCPCS: 96372; 99285; A9270-GY; J1200; J1630; J2060

== ENCOUNTER 2019-11-02 18:06 | Emergency (ER) | payer SELFPAY ==
--- NOTE | 2019-11-02 18:31 | ED ---
Psychiatric Complaint - HPI Summary HPI Summary: 44-year-old male with a significant past medical history transient presents to the emergency department today complaining of suicidal ideation. Patient is intoxicated upon arrival to the emergency department and reports having "2 beers today". he states he also has homicidal ideation. Patient states he does not have a plan on how he would commit suicide. Patient states he has had increased stress due to his personal life recently which has brought him to have suicidal ideation today. Patient states he has had 2 beers prior to arrival as well as some "K2". Patient otherwise complains of joint pain and pain of his feet. Patient denies fever, headache, chest pain, abdominal pain, shortness of breath, pain with urination, nausea, vomiting and diarrhea. - History Of Current Complaint Time Seen by Provider: 11/02/19 18:11 Hx Obtained From: Patient Onset/Duration: Gradual Onset Timing: Constant Severity Initially: Moderate Severity Currently: Moderate Character: Depressed, Anxious, Angry Aggravating Factor(s): Recent Stress Associated Signs And Symptoms: Positive: Sleep Disturbance Related History: Positive For: Prior Psychiatric Issues Has Suicidal: Reports: Thoughts Has Homicidal: Reports: Thoughts Ingestion History: Type/Name Of Drug - alcohol - Allergies/Home Medications Allergies/Adverse Reactions: Allergies Allergy/AdvReac Type Severity Reaction Status Date / Time No Known Allergies Allergy Verified 10/22/19 01:17 Home Medications: Home Medications NK [No Home Medications Reported] 10/01/19 [History Confirmed 11/02/19] PMH/Surg Hx/FS Hx/Imm Hx Endocrine/Hematology History: Denies: Hx Anticoagulant Therapy, Hx Blood Disorders, Hx Blood Transfusions, Hx Diabetes Cardiovascular History: Reports: Hx Hypertension Denies: Hx Aneurysm, Hx Angina, Hx Congestive Heart Failure Respiratory History: Denies: Hx Asthma GI History: Reports: Hx Gall Bladder Disease - Gallstones Denies: Hx Crohn's Disease History: Denies: Hx Acute Renal Failure, Hx Benign Prostatic Hyperplasia, Hx Renal Disease Musculoskeletal History: Reports: Hx Orthopedic Injury - Bilateral Knees Psychiatric History: Reports: Hx Anxiety, Hx Depression, Hx Inpatient Treatment , Hx of Violent Episodes Against Others, Hx Substance Abuse Denies: Hx Eating Disorder, Hx Community Mental Health Tx, Hx Suicide Attempt - Surgical History Surgery Procedure, Year, and Place: Chest reconstruction as child, sinus reconstruction - Immunization History Date of Tetanus Vaccine: Unknown Date of Influenza Vaccine: None Infectious Disease History: Denies: Traveled Outside the [place] in Last 30 Days - Family History Known Family History: Positive: Hypertension, Other - ETOH - Social History Alcohol Use: Daily Alcohol Amount: large quantity of ETOH daily Hx Substance Use: Yes Substance Use Type: Reports: Other Substance Use Comment - Amount & Last Used: patient denies Hx Tobacco Use: Yes Smoking Status (MU): Heavy Every Day Tobacco Smoker Type: Cigarettes Have You Smoked in the Last Year: Yes Review of Systems Constitutional: Negative Eyes: Negative ENT: Negative Cardiovascular: Negative Respiratory: Negative Gastrointestinal: Negative Genitourinary: Negative Musculoskeletal: Negative Positive: Rash Neurological/Mental Status: Negative Psychological: Normal All Other Systems Reviewed And Are Negative: Yes Physical Exam - Summary Physical Exam Summary: Agent is intoxicated and emergency Department however he is in no acute distress. Patient has bilateral trench foot which appears to be resolving. Patient is mildly abrasive and conversation. Triage Information Reviewed: Yes Vital Signs Reviewed: Yes Appearance: Positive: Well-Appearing, No Pain Distress, Well-Nourished Skin: Positive: Warm, Skin Color Reflects Adequate Perfusion Eyes: Positive: EOMI, LOCO ENT: Positive: Hearing grossly normal Respiratory/Lung Sounds: Positive: Clear to Auscultation, Breath Sounds Present Cardiovascular: Positive: RRR, S1, S2 Musculoskeletal: Positive: Strength/ROM Intact Neurological: Positive: Sensory/Motor Intact, Alert, Oriented to Person Place, Time, Normal Gait, Facial Symmetry, Speech Normal Psychiatric: Positive: Normal, Affect/Mood Appropriate AVPU Assessment: Alert Procedures - Sedation Patient Received Moderate/Deep Sedation with Procedure: No Diagnostics - Laboratory Result Diagrams: 11/02/19 18:40 11/02/19 18:40 Lab Statement: Any lab studies that have been ordered have been reviewed, and results considered in the medical decision making process. Course/Dx - Course Course Of Treatment: Patient was evaluated in the emergency department today or suicidal and homicidal ideation. Patient presents to the emergency department intoxicated. Vitals noted. Patient was placed into a safe room and his belongings were collected. Patient was placed under observation and laboratory studies were obtained. Laboratory studies returned with no concerning findings. Serum alcohol 268. Patient observed for approximately 7 hours and then cleared for mental health evaluation and deemed sober. Psychiatric services consulted for disposition and further treatment of the patient. Patient began going into alcohol withdrawal in the emergency department and he was given Ativan according to [facility] protocol. Patient signed out to Darek Correa M.D. at 0230 this date. - Differential Dx/Clinical Impression Differential Diagnosis/HQI/PQRI: Positive: Acute Psychosis, Drug Overdose/ Intentional, Homicidal Ideation, Suicidal Ideation Provider Diagnosis: Alcohol intoxication, Suicidal ideation, Homicidal ideation Discharge ED - Sign-Out/Discharge Documenting (check all that apply): Sign-Out Patient Signing out patient TO: Darek Correa Receiving patient FROM: Zack Jones - Discharge Plan Referrals: Dianna Castle [Primary Care Provider] -
[2019-11-02 18:46] LABS: ABS Basophils 0.2 10^3/ul (0-0.2); ABS Eosinophils 0.4 10^3/ul (0-0.6); ABS Lymphocytes 2.7 10^3/ul (1.0-4.8); ABS Monocytes 0.7 10^3/ul (0-0.8); Eosinophil % 4.2 %; Hematocrit 40 % (42-52); Hemoglobin 13.8 g/dL (14.0-18.0); Mean Corpuscular HGB Conc 34 g/dL (31-36); Mean Corpuscular Hemoglobin 30 pg (27-31); Mean Corpuscular Volume 89 fL (80-94); Mean Platelet Volume 7.8 fL (7.4-10.4); Platelet Count 211 10^3/uL (150-450); Red Blood Count 4.56 10^6 /uL (4.18-5.48); Red Cell Distribution Width 15 % (10-15)
[2019-11-02 19:03] LABS: ALT 21 U/L (7-52); AST 38 U/L (13-39); Albumin 4.1 g/dL (3.2-5.2); Albumin/Globulin Ratio 1.3 (1-3); Alkaline Phosphatase 70 U/L (34-104); Anion Gap 7 mmol/L (2-11); BUN/Creatinine Ratio 14.1 (8-20); Blood Urea Nitrogen 12 mg/dL (6-24); CO2 Carbon Dioxide 29 mmol/L (22-32); Calcium 8.6 mg/dL (8.6-10.3); Chloride 103 mmol/L (101-111); EGFR Non-African American 98.4 (>60); Globulin 3.1 g/dL (2-4); Glucose 81 mg/dL (70-100); Potassium 4.3 mmol/L (3.5-5.0); Sodium 139 mmol/L (135-145); Total Protein 7.2 g/dL (6.4-8.9)
[2019-11-02 19:20] LABS: Acetaminophen < 15 mcg/mL; Alcohol 268 mg/dL (<10); Salicylate < 2.50 mg/dL (<30)
[2019-11-02 19:35] LABS: TSH (Thyroid Stimulating Horm) 0.39 mcIU/mL (0.34-5.60)
[2019-11-03] MEDS ORDERED: LORazepam TAB(*) 1 MG PO ONE (01:48)
--- NOTE | 2019-11-03 02:13 | ED ---
Progress - Progress Note Progress Note: This pt is a sign out from DEYA Rahman to Dr. Darek Correa MD at shift change 0230 11/03/2019 pending a MHE and disposition. Course/Dx - Course Course Of Treatment: This pt is a sign out from DEYA Rahman to Dr. Darek Correa MD at shift change 0230 11/03/2019 pending a MHE and disposition. Dr. Felix, psychiatrist, recommends discharging the pt home with a Dx of substance abuse and substance induced mood disorder. - Diagnoses Provider Diagnoses: Substance abuse, Substance induced mood disorder - Provider Notifications Discussed Care Of Patient With: Albert Felix Time Discussed With Above Provider: 04:38 Instructed by Provider To: Admit As Inpatient Admit/Transition Orders Completed By ED Provider: Yes Discharge ED - Sign-Out/Discharge Documenting (check all that apply): Patient Departure - discharge - Discharge Plan Condition: Guarded Disposition: HOME Patient Education Materials: Abuse of Alcohol (ED), Polysubstance Abuse (ED) Referrals: Dianna Castle [Primary Care Provider] - Additional Instructions: Per completion of a mental health evaluation, you are cleared for release and do not require inpatient psychiatric hospitalization at this time. Please go to nearest emergency room or call 911 if safety concerns arise or condition worsens. Please contact one of the substance treatment services below for an appointment Substance Abuse Treatment Programs: [facility] (they also have an inpatient clinic) Important Phone Numbers: Behavioral Services Unit [phone] Suicide Prevention and Crisis Services........................ [phone] National Suicide Prevention Lifeline............................ 554-210-ZSQZ (9532) [facility]....................... [phone] Alcoholics Anonymous............................................... [phone] [facility].............. [phone] [facility] Police.............................................. - Billing Disposition and Condition Condition: GUARDED Disposition: Home - Attestation Statements Document Initiated by Iván: Yes Documenting Scribe: Ramirez Box Provider For Whom Iván is Documenting (Include Credential): Darek Correa MD Scribe Attestation: Ramirez Tillman scribed for Darek Correa MD on 11/03/19 at 0535. Scribe Documentation Reviewed: Yes Provider Attestation: The documentation as recorded by the Ramirez monte accurately reflects the service I personally performed and the decisions made by Darek nick MD Status of Scribe Document: Viewed
[2019-11-03] MEDS ORDERED: Bacitracin OINTMENT* 0.5% 0.5 oz TUBE TOPICAL ONE (06:04)
[2019-11-03] MEDS ORDERED: Bacitracin OINTMENT* 0.5% 0.5 oz TUBE ONE (06:05)
[2019-11-03 06:59] VITALS: BP 166/82
== END 2019-11-03 07:35 | disposition home or self-care (01) ==
LOC: ED 18:06
DX: F10.129 Alcohol abuse with intoxication, unspecified (principal); R45.851 Suicidal ideations; R45.850 Homicidal ideations; F19.10 Other psychoactive substance abuse, uncomplicated; F39 Unspecified mood [affective] disorder; I10 Essential (primary) hypertension; Z87.19 Personal history of other diseases of the digestive system; F17.210 Nicotine dependence, cigarettes, uncomplicated; R21 Rash and other nonspecific skin eruption
CPT/HCPCS: 36415; 80053; 80320; 80329; 84443; 85025; 99285; A9270-GY; G0480

== ENCOUNTER 2019-11-07 21:38 | Emergency (ER) | payer SELFPAY ==
[2019-11-07] MEDS ORDERED: NS 0.9% 1000 ML** 1,000 ML IV ONE (21:53)
[2019-11-07] MEDS ORDERED: Thiamine INJ* 100 MG/ML 2 ML VIAL IM ONE (21:54)
[2019-11-07 22:19] LABS: ABS Basophils 0.1 10^3/ul (0-0.2); ABS Eosinophils 0.6 10^3/ul (0-0.6); ABS Lymphocytes 2.5 10^3/ul (1.0-4.8); ABS Monocytes 0.6 10^3/ul (0-0.8); ABS Neutrophils 5.4 10^3/ul (1.5-7.7); Hematocrit 40 % (42-52); Hemoglobin 13.9 g/dL (14.0-18.0); Lymphocyte % 26.9 %; Mean Corpuscular HGB Conc 35 g/dL (31-36); Mean Corpuscular Hemoglobin 31 pg (27-31); Mean Corpuscular Volume 89 fL (80-94); Mean Platelet Volume 8.1 fL (7.4-10.4); Platelet Count 193 10^3/uL (150-450); Red Blood Count 4.51 10^6 /uL (4.18-5.48); Red Cell Distribution Width 15 % (10-15); White Blood Count 9.2 10^3/uL (3.5-10.8)
[2019-11-07 22:36] LABS: Acetaminophen < 15 mcg/mL; Alcohol 367 mg/dL (<10); Salicylate < 2.50 mg/dL (<30)
[2019-11-07 22:37] LABS: ALT 24 U/L (7-52); AST 37 U/L (13-39); Albumin/Globulin Ratio 1.4 (1-3); Alkaline Phosphatase 59 U/L (34-104); Anion Gap 10 mmol/L (2-11); BUN/Creatinine Ratio 13.5 (8-20); Blood Urea Nitrogen 10 mg/dL (6-24); CO2 Carbon Dioxide 23 mmol/L (22-32); Calcium 8.5 mg/dL (8.6-10.3); Chloride 102 mmol/L (101-111); EGFR African American 139.7 (>60); EGFR Non-African American 115.4 (>60); Globulin 2.9 g/dL (2-4); Glucose 109 mg/dL (70-100); Potassium 3.5 mmol/L (3.5-5.0); Sodium 135 mmol/L (135-145); Total Protein 6.9 g/dL (6.4-8.9)
[2019-11-08 02:21] LABS: Urine Appearance Clear; Urine Bilirubin Negative (Negative); Urine Blood Negative (Negative); Urine Color Straw; Urine Glucose Negative (Negative); Urine Ketones Negative (Negative); Urine Nitrite Negative (Negative); Urine Protein Negative (Negative); Urine Specific Gravity 1.003 (1.010-1.030); Urine Urobilinogen Negative (Negative)
[2019-11-08 02:37] LABS: Urine Benzodiazepine Screen None Detected (None Detect); Urine Opiates Screen None Detected (None Detect)
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
[2019-11-08] MEDS ORDERED: Acetaminophen TAB* 325 MG PO ONE (07:34)
[2019-11-08] MEDS ORDERED: Ibuprofen TAB* 600 MG PO ONE (07:34)
[2019-11-08 08:14] VITALS: BP 128/77
== END 2019-11-08 08:14 | disposition home or self-care (01) ==
LOC: ED 21:38
DX: F10.129 Alcohol abuse with intoxication, unspecified (principal); Y90.8 Blood alcohol level of 240 mg/100 ml or more; S09.90XA Unspecified injury of head, initial encounter; S00.03XA Contusion of scalp, initial encounter; W22.8XXA Striking against or struck by other objects, initial encounter; Y92.524 Gas station as the place of occurrence of the external cause; I10 Essential (primary) hypertension; F17.210 Nicotine dependence, cigarettes, uncomplicated
CPT/HCPCS: 36415; 70450; 80053; 80307; 80320; 80329; 81003; 83605; 85025; 96360; 96372; 99283; A9270-GY; G0480; J3411

== ENCOUNTER 2019-11-09 00:23 | Emergency (ER) | payer SELFPAY ==
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
[2019-11-09] MEDS ORDERED: Ibuprofen TAB* 600 MG PO ONE (09:13)
[2019-11-09 10:28] VITALS: BP 132/77
== END 2019-11-09 10:29 | disposition home or self-care (01) ==
LOC: ED 00:23
DX: F10.129 Alcohol abuse with intoxication, unspecified (principal); Y90.8 Blood alcohol level of 240 mg/100 ml or more; I10 Essential (primary) hypertension; F41.9 Anxiety disorder, unspecified; F32.9 Major depressive disorder, single episode, unspecified; F17.210 Nicotine dependence, cigarettes, uncomplicated
CPT/HCPCS: 36415; 80320; 99282; A9270-GY; G0480

== ENCOUNTER 2019-11-14 13:28 | Emergency (ER) | payer SELFPAY ==
[2019-11-14] MEDS ORDERED: Cephalexin CAP* 500 MG PO ONE (15:36)
--- NOTE | 2019-11-14 15:46 | ED ---
Lower Extremity - HPI Summary HPI Summary: 44 year old male presents with potential trench foot for past month. He states that he has not been changing his socks regularly. States was on doxycycline put on by [facility] but finished the script 2 days ago. He states that his left foot has been getting better but the right foot is not improving. He states that he had some swelling up his leg but that has gotten better. He denies any fevers or chills. He is not diabetic. He is homeless. He denies any history of MRSA. - History of Current Complaint Chief Complaint: EDExtremityLower Stated Complaint: FOOT PAIN PER EMS Time Seen by Provider: 11/14/19 15:23 Pain Intensity: 10 - Allergies/Home Medications Allergies/Adverse Reactions: Allergies Allergy/AdvReac Type Severity Reaction Status Date / Time No Known Allergies Allergy Verified 10/22/19 01:17 Home Medications: Home Medications Cephalexin CAP* [Keflex CAP*] 500 mg PO BID #19 cap 11/14/19 [Rx] Ibuprofen TAB* [Motrin TAB* 600 MG] 600 mg PO Q6H PRN #20 tab 11/14/19 [Rx] PMH/Surg Hx/FS Hx/Imm Hx Endocrine/Hematology History: Denies: Hx Anticoagulant Therapy, Hx Blood Disorders, Hx Blood Transfusions, Hx Diabetes Cardiovascular History: Reports: Hx Hypertension Denies: Hx Aneurysm, Hx Angina, Hx Congestive Heart Failure Respiratory History: Denies: Hx Asthma GI History: Reports: Hx Gall Bladder Disease - Gallstones Denies: Hx Crohn's Disease History: Denies: Hx Acute Renal Failure, Hx Benign Prostatic Hyperplasia, Hx Renal Disease Musculoskeletal History: Reports: Hx Orthopedic Injury - Bilateral Knees Psychiatric History: Reports: Hx Anxiety, Hx Depression, Hx Inpatient Treatment , Hx of Violent Episodes Against Others, Hx Substance Abuse Denies: Hx Eating Disorder, Hx Community Mental Health Tx, Hx Suicide Attempt - Surgical History Surgery Procedure, Year, and Place: Chest reconstruction as child, sinus reconstruction - Immunization History Date of Tetanus Vaccine: Unknown Date of Influenza Vaccine: None Infectious Disease History: No Infectious Disease History: Denies: Traveled Outside the [place] in Last 30 Days - Family History Known Family History: Positive: Hypertension, Other - ETOH - Social History Alcohol Use: Daily Alcohol Amount: "I drink when I can" Hx Substance Use: Yes Substance Use Type: Reports: None Substance Use Comment - Amount & Last Used: K2 Hx Tobacco Use: Yes Smoking Status (MU): Heavy Every Day Tobacco Smoker Type: Cigarettes Have You Smoked in the Last Year: Yes Review of Systems Negative: Fever Negative: Chest Pain Negative: Shortness Of Breath Positive: Rash All Other Systems Reviewed And Are Negative: Yes Physical Exam Triage Information Reviewed: Yes Vital Signs On Initial Exam: Initial Vitals Temp Pulse Resp BP Pulse Ox 98.2 F 80 14 124/95 96 11/14/19 13:41 11/14/19 13:41 11/14/19 13:41 11/14/19 13:41 11/14/19 13:41 Vital Signs Reviewed: Yes Appearance: Positive: Well-Appearing Skin: Positive: Warm, Dry, Other - healing skin changes to left foot, ulcer type lesion to top of right foot with minimial surrouding erythema to the dermis , Head/Face: Positive: Normal Head/Face Inspection Eyes: Positive: Normal, Conjunctiva Clear ENT: Positive: Pharynx normal Respiratory/Lung Sounds: Positive: Clear to Auscultation, Breath Sounds Present Cardiovascular: Positive: Normal, RRR Musculoskeletal: Positive: Strength/ROM Intact - feet, Other - good pulses Neurological: Positive: Normal Psychiatric: Positive: Normal Procedures - Sedation Patient Received Moderate/Deep Sedation with Procedure: No Diagnostics - Vital Signs Vital Signs Temp Pulse Resp BP Pulse Ox 11/14/19 13:41 98.2 F 80 14 124/95 96 - Laboratory Lab Statement: Any lab studies that have been ordered have been reviewed, and results considered in the medical decision making process. Lower Extremity Course/Dx - Course Course Of Treatment: 44 year old male presents with potential trench foot for past month. He states that he has not been changing his socks regularly. States was on doxycycline put on by [employer] but finished the script 2 days ago. He states that his left foot has been getting better but the right foot is not improving. He states that he had some swelling up his leg but that has gotten better. He denies any fevers or chills. He is not diabetic. He is homeless. He denies any history of MRSA. On exam has ulcer to the dermis with some surrounding erythema on right foot. Got a wound culture of the area. We'll place on Keflex. told follow up with the wound clinic. Told to change socks frequently. Patient understands agrees plan. - Diagnoses Differential Diagnosis/HQI/PQRI: Positive: Cellulitis, Other - ulcer, abscess Provider Diagnoses: Ulcer of foot Discharge ED - Sign-Out/Discharge Documenting (check all that apply): Patient Departure - Discharge Plan Condition: Good Disposition: HOME Prescriptions: Cephalexin CAP* [Keflex CAP*] 500 mg PO BID #19 cap Ibuprofen TAB* [Motrin TAB* 600 MG] 600 mg PO Q6H PRN #20 tab PRN Reason: Pain - Moderate Patient Education Materials: Acute Wound Care (ED) Referrals: Dianna Castle [Primary Care Provider] - Clinton Moss MD [Medical Doctor] - Additional Instructions: follow up with wound clinic take keflex twice a day for 10 days change socks daily do not wear tight shoes elevate leg take ibuprofen every 6 hours for pain Return to ED if develop any new or worsening symptoms - Billing Disposition and Condition Condition: GOOD Disposition: Home
[2019-11-14] MEDS ORDERED: Ketorolac INJ* 30 MG/ML 1 ML VIAL IM ONE (15:50)
[2019-11-14 16:35] VITALS: BP 133/72
== END 2019-11-14 16:34 | disposition home or self-care (01) ==
LOC: ED 13:28
DX: L97.529 Non-pressure chronic ulcer of other part of left foot with unspecified severity (principal); R21 Rash and other nonspecific skin eruption; F17.210 Nicotine dependence, cigarettes, uncomplicated; F41.9 Anxiety disorder, unspecified; F32.9 Major depressive disorder, single episode, unspecified
CPT/HCPCS: 87070; 87077; 87205; 87640; 87641; 96372; 99282; A9270-GY; J1885

== ENCOUNTER 2019-11-18 20:03 | Emergency (ER) | payer SELFPAY ==
--- NOTE | 2019-11-18 20:25 | ED ---
Skin Complaint - HPI Summary HPI Summary: 44 year old M presenting to [facility] via private car with a chief complaint of pain in his right foot. Patient has visited [facility] on 11/14/2019 with a similar complaint. The patient rates the pain 10/10 in severity, and his symptoms are aggravated by palpating lateral aspects of his right foot. Patient was prescribed Keflex on 11/14/2019, however he denies taking the medication. Patient reports that he has been changing his dressing every day and that, although he is experiencing intense pain on his right foot, his foot has been healing. On vitals, patient's temp is 98.3 F, no fever. Home Medications Medication Instructions Recorded Confirmed Type Cephalexin CAP* [Keflex CAP*] 500 mg PO BID #19 cap 11/14/19 Rx Ibuprofen TAB* [Motrin TAB* 600 MG] 600 mg PO Q6H PRN #20 tab 11/14/19 Rx - History of Current Complaint Chief Complaint: EDExtremityLower Time Seen by Provider: 11/18/19 20:09 Stated Complaint: RIGHT FOOT INJURY PER PT Hx Obtained From: Patient Current Severity: Severe Pain Intensity: 10 Pain Scale Used: 0-10 Numeric Skin Location: Foot - Right foot. Aggravating Symptom(s): Touch - Pain is aggravating by touching the sides of right foot. - Additional Pertinent History Primary Care Physician: [id number] - Allergy/Home Medications Allergies/Adverse Reactions: Allergies Allergy/AdvReac Type Severity Reaction Status Date / Time No Known Allergies Allergy Verified 11/18/19 20:05 Home Medications: Home Medications Cephalexin CAP* [Keflex CAP*] 500 mg PO BID #19 cap 11/14/19 [Rx] Ibuprofen TAB* [Motrin TAB* 600 MG] 600 mg PO Q6H PRN #20 tab 11/14/19 [Rx] PMH/Surg Hx/FS Hx/Imm Hx Endocrine/Hematology History: Denies: Hx Anticoagulant Therapy, Hx Blood Disorders, Hx Blood Transfusions, Hx Diabetes Cardiovascular History: Reports: Hx Hypertension Denies: Hx Aneurysm, Hx Angina, Hx Congestive Heart Failure Respiratory History: Denies: Hx Asthma GI History: Reports: Hx Gall Bladder Disease - Gallstones Denies: Hx Crohn's Disease History: Denies: Hx Acute Renal Failure, Hx Benign Prostatic Hyperplasia, Hx Renal Disease Musculoskeletal History: Reports: Hx Orthopedic Injury - Bilateral Knees Psychiatric History: Reports: Hx Anxiety, Hx Depression, Hx Inpatient Treatment , Hx of Violent Episodes Against Others, Hx Substance Abuse Denies: Hx Eating Disorder, Hx Community Mental Health Tx, Hx Suicide Attempt - Surgical History Surgery Procedure, Year, and Place: Chest reconstruction as child, sinus reconstruction - Immunization History Date of Tetanus Vaccine: Unknown Date of Influenza Vaccine: None Infectious Disease History: No Infectious Disease History: Denies: Traveled Outside the [place] in Last 30 Days - Family History Known Family History: Positive: Hypertension, Other - ETOH - Social History Alcohol Use: Daily Alcohol Amount: "I drink when I can" Hx Substance Use: Yes Substance Use Type: Reports: None Substance Use Comment - Amount & Last Used: K2 Hx Tobacco Use: Yes Smoking Status (MU): Heavy Every Day Tobacco Smoker Type: Cigarettes Have You Smoked in the Last Year: Yes Review of Systems Negative: Fever - On vitals, patient's temp is 98.3 F, no fever. Positive: Other - Patient's right foot hurts to touch. All Other Systems Reviewed And Are Negative: Yes Physical Exam - Summary Physical Exam Summary: Constitutional: Well-developed, Well-nourished, Alert. (-) Distressed Skin: Patient has skin breakdown on the dorsum of his right foot. He has an ulcerated area at the lateral aspect of the foot as well as proximal to his great toe. HENT: Normocephalic; Atraumatic Eyes: Conjunctiva normal Neck: Musculoskeletal ROM normal neck. (-) JVD, (-) Stridor, (-) Tracheal deviation Cardio: Rhythm regular, rate normal, Heart sounds normal; Intact distal pulses; The pedal pulses are 2+ and symmetric. Radial pulses are 2+ and symmetric. (-) Murmur Pulmonary/Chest wall: Effort normal. (-) Respiratory distress, (-) Wheezes, (-) Rales Abd: Soft, (-) tenderness, (-) Distension, (-) Guarding, (-) Rebound Musculoskeletal: (-) Edema Lymph: (-) Cervical adenopathy Neuro: Alert, Oriented x3 Psych: Mood and affect Normal Triage Information Reviewed: Yes Vital Signs On Initial Exam: Initial Vitals Temp Pulse Resp BP Pulse Ox 98.3 F 86 15 141/112 98 11/18/19 20:03 11/18/19 20:03 11/18/19 20:03 11/18/19 20:03 11/18/19 20:03 Vital Signs Reviewed: Yes Procedures - Sedation Patient Received Moderate/Deep Sedation with Procedure: No Diagnostics - Vital Signs Vital Signs Temp Pulse Resp BP Pulse Ox 11/18/19 20:03 98.3 F 86 15 141/112 98 - Laboratory Lab Statement: Any lab studies that have been ordered have been reviewed, and results considered in the medical decision making process. Course/Dx - Course Course Of Treatment: Patient presented to the ER on 11/18/2019 complaining of pain on his right foot that he rated a 10/10 in severity. Patient has skin breakdown on the dorsum of his right foot. He has an ulcerated area at the lateral aspect of the foot as well as proximal to his great toe. He received 500 mg of Keflex at 2056. Patient was discharged home with a PCP and wound care followup within 3 days. Discharge ED - Sign-Out/Discharge Documenting (check all that apply): Patient Departure - Discharge - Discharge Plan Condition: Stable Disposition: HOME Patient Education Materials: Chronic Wound Care (ED) Referrals: [facility] [place] [Provider Group] - 3 Days Dianna Castle [Primary Care Provider] - 3 Days Additional Instructions: Please return to the ED for any new or worsening symptoms. Please followup with your primary care physician and [facility] within 3 days. - Billing Disposition and Condition Condition: STABLE Disposition: Home - Attestation Statements Document Initiated by Iván: Yes Documenting Scribe: Dolores Peralta Provider For Whom Scribe is Documenting (Include Credential): Toan Hazel DO Scribe Attestation: Dolores Tillman scribed for Toan Hazel DO on 11/19/19 at 0355. Scribe Documentation Reviewed: Yes Provider Attestation: The documentation as recorded by the Dolores monte accurately reflects the service I personally performed and the decisions made by , Toan Hazel DO Status of Scribkyle Document: Viewed
[2019-11-18] MEDS ORDERED: Cephalexin CAP* 500 MG PO ONE (20:57)
[2019-11-19 00:50] VITALS: BP 130/80
== END 2019-11-18 23:50 | disposition home or self-care (01) ==
LOC: ED 20:03
DX: S90.921D Unspecified superficial injury of right foot, subsequent encounter (principal); X58.XXXD Exposure to other specified factors, subsequent encounter; I10 Essential (primary) hypertension; Z79.899 Other long term (current) drug therapy; F32.9 Major depressive disorder, single episode, unspecified; F41.9 Anxiety disorder, unspecified; F17.210 Nicotine dependence, cigarettes, uncomplicated
CPT/HCPCS: 99284; A9270-GY

== ENCOUNTER 2019-11-29 16:52 | Emergency (ER) | payer SELFPAY ==
--- NOTE | 2019-11-29 17:00 | ED ---
Psychiatric Complaint - HPI Summary HPI Summary: Patient is a 44 y/o M presenting to the ED via EMS and escorted by state police for a psychiatric complaint. Per EMS, patient was found lying in the middle on an intersection and expressing SI and HI. Patient was uncooperative and was placed on restraints to transport to [facility]. On arrival to [facility], patient is cursing at staff. Patient reports he had an argument with his girlfriend earlier in the day. 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 He also notes having right foot pain and edema with occasional fluid drainage for the last few weeks. He has been applying Bacitracin to the foot. He is unable to state what happened to the foot. Patient denies any fever, chills, erythema of eyes, sore throat, chest pain, shortness of breath, cough, abdominal pain, nausea, vomiting, dysuria, hematuria, rash, or dizziness. No aggravating or alleviating factors are reported. Patient admits alcohol use. - History Of Current Complaint Chief Complaint: EDMentalHealth Accompanied By: EMS, police Hx Obtained From: Patient, EMS Onset/Duration: Sudden Onset, Still Present Timing: Constant Severity Initially: Moderate Severity Currently: Moderate Aggravating Factor(s): Nothing Alleviating Factor(s): Nothing Associated Signs And Symptoms: Positive: Hostile Has Suicidal: Reports: Thoughts Has Homicidal: Reports: Thoughts Ingestion History: Type/Name Of Drug - Alcohol - Allergies/Home Medications Allergies/Adverse Reactions: Allergies Allergy/AdvReac Type Severity Reaction Status Date / Time No Known Allergies Allergy Verified 11/18/19 20:05 Home Medications: Home Medications Ibuprofen TAB* [Motrin TAB* 600 MG] 600 mg PO Q6H PRN #20 tab 11/14/19 [Rx Confirmed 11/29/19] PMH/Surg Hx/FS Hx/Imm Hx Previously Healthy: Yes Endocrine/Hematology History: Denies: Hx Anticoagulant Therapy, Hx Blood Disorders, Hx Blood Transfusions, Hx Diabetes Cardiovascular History: Reports: Hx Hypertension Denies: Hx Aneurysm, Hx Angina, Hx Congestive Heart Failure Respiratory History: Denies: Hx Asthma GI History: Reports: Hx Gall Bladder Disease - Gallstones Denies: Hx Crohn's Disease History: Denies: Hx Acute Renal Failure, Hx Benign Prostatic Hyperplasia, Hx Renal Disease Musculoskeletal History: Reports: Hx Orthopedic Injury - Bilateral Knees, Other Musculoskeletal History - Patient came in to the ER on 11/14/2019 complaining of foot pain. Psychiatric History: Reports: Hx Anxiety, Hx Depression, Hx Inpatient Treatment , Hx of Violent Episodes Against Others, Hx Substance Abuse Denies: Hx Eating Disorder, Hx Community Mental Health Tx, Hx Suicide Attempt - Surgical History Surgical History: Yes Surgery Procedure, Year, and Place: Chest reconstruction as child, sinus reconstruction - Immunization History Date of Tetanus Vaccine: Unknown Date of Influenza Vaccine: None Infectious Disease History: No Infectious Disease History: Denies: Traveled Outside the [place] in Last 30 Days - Family History Known Family History: Positive: Hypertension, Other - ETOH - Social History Occupation: Unemployed Alcohol Use: Daily Alcohol Amount: "I drink when I can" Hx Substance Use: Yes Substance Use Type: Reports: Other Substance Use Comment - Amount & Last Used: K2 Hx Tobacco Use: Yes Smoking Status (MU): Heavy Every Day Tobacco Smoker Type: Cigarettes Have You Smoked in the Last Year: Yes Review of Systems Negative: Fever, Chills Negative: Erythema Negative: Sore Throat Negative: Chest Pain Negative: Shortness Of Breath, Cough Negative: Abdominal Pain, Vomiting, Nausea Negative: dysuria, hematuria Positive: Myalgia - Right foot with occasional fluid drainage, Edema - Right foot Negative: Rash Neurological/Mental Status: Other - Negative dizziness Psychological: Other - Positive SI and HI All Other Systems Reviewed And Are Negative: Yes Physical Exam - Summary Physical Exam Summary: Constitutional: Well-developed, Well-nourished, Alert. (-) Distressed Skin: Warm, Dry HENT: Normocephalic; Atraumatic Eyes: Conjunctiva normal Neck: Musculoskeletal ROM normal neck. (-) JVD, (-) Stridor, (-) Tracheal deviation Cardio: Rhythm regular, rate normal, Heart sounds normal; Intact distal pulses; The pedal pulses are 2+ and symmetric. Radial pulses are 2+ and symmetric. (-) Murmur Pulmonary/Chest wall: Effort normal. (-) Respiratory distress, (-) Wheezes, (-) Rales Abd: Soft, (-) tenderness, (-) Distension, (-) Guarding, (-) Rebound Musculoskeletal: (-) Edema. Patient is able to move the toes, the skin is macerated, no crepitus. Lymph: (-) Cervical adenopathy Neuro: Alert, Oriented x3 Psych: Mood and affect Normal Triage Information Reviewed: Yes Vital Signs Reviewed: Yes Procedures - Sedation Patient Received Moderate/Deep Sedation with Procedure: No Diagnostics - Laboratory Result Diagrams: 11/29/19 17:14 11/29/19 17:14 Lab Statement: Any lab studies that have been ordered have been reviewed, and results considered in the medical decision making process. Re-Evaluation - Re-Evaluation First Eval Re-Evaluation Time: 18:54 Change: Unchanged Comment: At 18:54, patient is awaiting a mental health evaluation pending sobriety. Course/Dx - Course Course Of Treatment: Patient is a 44 y/o M presenting to the ED via EMS and escorted by state police for a psychiatric complaint. Per EMS, patient was found lying in the middle on an intersection and expressing SI and HI. Patient was uncooperative and was placed on restraints to transport to [facility]. On arrival to [facility], patient is cursing at staff. 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 He also notes having right foot pain and edema with occasional fluid drainage for the last few weeks. He has been applying Bacitracin to the foot. He is unable to state what happened to the foot. Patient denies any fever, chills, erythema of eyes, sore throat, chest pain, shortness of breath, cough, abdominal pain, nausea, vomiting, dysuria, hematuria , rash, or dizziness. On exam, patient is able to move the toes, the skin is macerated, no crepitus. In the ED course, patient was given Benadryl 50 mg IM and Haldol 5 mg PO. Laboratory abnormal findings: serum alcohol 255, cannabinoids positive. At 18:54, patient is awaiting a mental health evaluation pending sobriety. Patient is a sign-out at 19:00 on 11/29/[address] Krishna Diallo to Dr. Deejay Vidal at shift change, pending sobriety, mental health evaluation, and disposition. - Differential Dx/Clinical Impression Provider Diagnosis: Cellulitis of right foot, Skin breakdown Discharge ED - Sign-Out/Discharge Documenting (check all that apply): Sign-Out Patient Signing out patient TO: Deejay Vidal - Patient is a sign-out at 19:00 on 09/[address] Krishna Diallo to Dr. Deejay Vidal at shift change, pending sobriety, mental health evaluation, and disposition. - Discharge Plan Condition: Stable Patient Education Materials: Cellulitis (ED) Referrals: Dianna Castle [Primary Care Provider] - Clinton Moss MD [Medical Doctor] - 2 Days Additional Instructions: RETURN TO THE EMERGENCY DEPARTMENT FOR CHANGING OR WORSENING SYMPTOMS. Follow up with your primary care physician in 2-3 days. Follow up with Dr. Moss in 2 -3 days. Apply medicinal powder to the foot and use dry socks and shoes. - Attestation Statements Document Initiated by Scribe: Yes Documenting Scribe: Kimberly Alamo Provider For Whom Scribe is Documenting (Include Credential): Krishna Diallo MD Scribe Attestation: Kimberly Tillman, scribed for Krishna Diallo MD on 11/29/19 at 1852. Status of Scribe Document: Ready
[2019-11-29] MEDS ORDERED: Haloperidol TAB* 5 MG PO ONE (17:02)
[2019-11-29] MEDS ORDERED: diPHENhydraMINE IV* 50 MG/ML 1 ml VIAL (BENADRYL) IM ONE (17:02)
[2019-11-29 17:22] LABS: ABS Basophils 0.1 10^3/ul (0-0.2); ABS Eosinophils 0.4 10^3/ul (0-0.6); ABS Lymphocytes 2.1 10^3/ul (1.0-4.8); ABS Monocytes 1.1 10^3/ul (0-0.8); ABS Neutrophils 6.5 10^3/ul (1.5-7.7); Hematocrit 39 % (42-52); Mean Corpuscular HGB Conc 36 g/dL (31-36); Mean Corpuscular Hemoglobin 32 pg (27-31); Mean Corpuscular Volume 89 fL (80-94); Mean Platelet Volume 8.3 fL (7.4-10.4); Platelet Count 222 10^3/uL (150-450); Red Blood Count 4.43 10^6 /uL (4.18-5.48); Red Cell Distribution Width 15 % (10-15); White Blood Count 10.2 10^3/uL (3.5-10.8)
[2019-11-29 17:35] LABS: Urine Appearance Clear; Urine Bilirubin Negative (Negative); Urine Blood Negative (Negative); Urine Color Straw; Urine Glucose Negative (Negative); Urine Ketones Negative (Negative); Urine Nitrite Negative (Negative); Urine Protein Negative (Negative); Urine Specific Gravity 1.003 (1.010-1.030); Urine Urobilinogen Negative (Negative)
[2019-11-29 17:39] LABS: ALT 19 U/L (7-52); AST 25 U/L (13-39); Albumin 4.1 g/dL (3.2-5.2); Albumin/Globulin Ratio 1.2 (1-3); Alkaline Phosphatase 69 U/L (34-104); Anion Gap 6 mmol/L (2-11); BUN/Creatinine Ratio 7.4 (8-20); Blood Urea Nitrogen 6 mg/dL (6-24); CO2 Carbon Dioxide 29 mmol/L (22-32); Calcium 9.2 mg/dL (8.6-10.3); Chloride 102 mmol/L (101-111); EGFR African American 125.8 (>60); Globulin 3.4 g/dL (2-4); Glucose 85 mg/dL (70-100); Potassium 3.9 mmol/L (3.5-5.0); Sodium 137 mmol/L (135-145); Total Protein 7.5 g/dL (6.4-8.9)
[2019-11-29 17:46] LABS: Acetaminophen < 15 mcg/mL; Alcohol 255 mg/dL (<10); Salicylate < 2.50 mg/dL (<30)
[2019-11-29 17:53] LABS: Urine Benzodiazepine Screen None Detected (None Detect); Urine Opiates Screen None Detected (None Detect)
[2019-11-29 18:00] LABS: TSH (Thyroid Stimulating Horm) 0.71 mcIU/mL (0.34-5.60)
--- NOTE | 2019-11-29 19:12 | ED ---
Progress - Progress Note Progress Note: Patient signed out by Dr. Diallo to Dr. Vidal at 19:00 on 11/29/2019 pending sobriety, MHE, and disposition. The patient will be discharged by Dr. Washburn. Re-Evaluation - Re-Evaluation Second Eval Re-Evaluation Time: 23:15 Comment: The patient answers questions but has slurred speech, will continue to monitor for more sobriety before MHE. First Eval Re-Evaluation Time: 18:54 Change: Unchanged Comment: At 18:54, patient is awaiting a mental health evaluation pending sobriety. Course/Dx - Course Course Of Treatment: Patient is a 44 y/o M presenting to the ED via EMS and escorted by state police for a psychiatric complaint. Per EMS, patient was found lying in the middle on an intersection and expressing SI and HI. Patient was uncooperative and was placed on restraints to transport to [facility]. On arrival to [facility], patient is cursing at staff. 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 He also notes having right foot pain and edema with occasional fluid drainage for the last few weeks. He has been applying Bacitracin to the foot. He is unable to state what happened to the foot. Patient denies any fever, chills, erythema of eyes, sore throat, chest pain, shortness of breath, cough, abdominal pain, nausea, vomiting, dysuria, hematuria , rash, or dizziness. On exam, patient is able to move the toes, the skin is macerated, no crepitus. In the ED course, patient was given Benadryl 50 mg IM and Haldol 5 mg PO. Laboratory abnormal findings: serum alcohol 255, cannabinoids positive. At 18:54, patient is awaiting a mental health evaluation pending sobriety. Patient is a sign-out at 19:00 on 11/29/[address] Krishna Diallo to Dr. Deejay Vidal at shift change, pending sobriety, mental health evaluation, and disposition. Patient was evaluated by the mental health team who thought he was safe for discharge. - Diagnoses Provider Diagnoses: Cellulitis of right foot, Skin breakdown, Alcohol use disorder Discharge ED - Sign-Out/Discharge Documenting (check all that apply): Patient Departure - Discharge, Receiving Sign-Out Receiving patient FROM: Krishna Diallo - Pending sobriety, MHE, and disposition. - Discharge Plan Condition: Stable Disposition: HOME Patient Education Materials: Cellulitis (ED), Alcohol Use Disorder (ED) Referrals: Clinton Moss MD [Medical Doctor] - 2 Days Dianna Castle [Primary Care Provider] - Additional Instructions: RETURN TO THE EMERGENCY DEPARTMENT FOR CHANGING OR WORSENING SYMPTOMS. Follow up with your primary care physician in 2-3 days. Follow up with Dr. Moss in 2 -3 days. Apply medicinal powder to the foot and use dry socks and shoes. - Billing Disposition and Condition Condition: STABLE Disposition: Home - Attestation Statements Document Initiated by Minhibkyle: Yes Documenting Scribe: Mariana Mccullough Provider For Whom Scribe is Documenting (Include Credential): Deejay Vidal MD Scribe Attestation: Mariana Tillman scribed for Deejay Vidal MD on 11/30/19 at 0345. Scribe Documentation Reviewed: Yes Provider Attestation: The documentation as recorded by the Mariana monte accurately reflects the service I personally performed and the decisions made by , Deejay Vidal MD Status of Scribe Document: Viewed
[2019-11-30 02:04] VITALS: BP 147/85
== END 2019-11-30 02:02 | disposition home or self-care (01) ==
LOC: ED 16:52
DX: L03.115 Cellulitis of right lower limb (principal); R23.9 Unspecified skin changes; F10.10 Alcohol abuse, uncomplicated; F41.9 Anxiety disorder, unspecified; F32.9 Major depressive disorder, single episode, unspecified; I10 Essential (primary) hypertension; F17.210 Nicotine dependence, cigarettes, uncomplicated
CPT/HCPCS: 36415; 80053; 80307; 80320; 80329; 81003; 84443; 85025; 96372; 99285; A9270-GY; G0480; J1200

== ENCOUNTER 2019-12-25 23:31 | Emergency (ER) | payer SELFPAY ==
[2019-12-25] MEDS ORDERED: NS 0.9% 1000 ml BAG 1,000 ML IV ONE (23:32)
[2019-12-25 23:57] LABS: Urine Appearance Clear; Urine Bilirubin Negative (Negative); Urine Blood Negative (Negative); Urine Color Straw; Urine Glucose Negative (Negative); Urine Ketones Negative (Negative); Urine Nitrite Negative (Negative); Urine Protein Negative (Negative); Urine Specific Gravity 1.002 (1.010-1.030); Urine Urobilinogen Negative (Negative)
[2019-12-26 00:19] LABS: Urine Benzodiazepine Screen None Detected (None Detect); Urine Opiates Screen None Detected (None Detect)
[2019-12-26 00:28] LABS: ABS Basophils 0.1 10^3/ul (0-0.2); ABS Eosinophils 0.3 10^3/ul (0-0.6); ABS Lymphocytes 2.8 10^3/ul (1.0-4.8); ABS Monocytes 0.6 10^3/ul (0-0.8); Eosinophil % 3.8 %; Hematocrit 44 % (42-52); Hemoglobin 14.7 g/dL (14.0-18.0); Lymphocyte % 34.8 %; Mean Corpuscular HGB Conc 34 g/dL (31-36); Mean Corpuscular Hemoglobin 31 pg (27-31); Mean Corpuscular Volume 90 fL (80-94); Mean Platelet Volume 8.3 fL (7.4-10.4); Platelet Count 207 10^3/uL (150-450); Red Blood Count 4.82 10^6 /uL (4.18-5.48); Red Cell Distribution Width 15 % (10-15); White Blood Count 8.1 10^3/uL (3.5-10.8)
[2019-12-26 00:56] LABS: ALT 25 U/L (7-52); AST 37 U/L (13-39); Albumin 4.3 g/dL (3.2-5.2); Albumin/Globulin Ratio 1.4 (1-3); Alkaline Phosphatase 58 U/L (34-104); Anion Gap 9 mmol/L (2-11); BUN/Creatinine Ratio 9.9 (8-20); Blood Urea Nitrogen 7 mg/dL (6-24); CO2 Carbon Dioxide 23 mmol/L (22-32); Calcium 8.6 mg/dL (8.6-10.3); Chloride 103 mmol/L (101-111); EGFR African American 146.5 (>60); EGFR Non-African American 121.1 (>60); Glucose 74 mg/dL (70-100); Potassium 3.5 mmol/L (3.5-5.0); Sodium 135 mmol/L (135-145); Total Protein 7.3 g/dL (6.4-8.9)
[2019-12-26 01:01] LABS: Acetaminophen < 15 mcg/mL; Alcohol, S 353 mg/dL (<10); Salicylate < 2.50 mg/dL (<30)
[2019-12-26 07:13] VITALS: BP 150/92
== END 2019-12-26 07:11 | disposition home or self-care (01) ==
LOC: ED 23:31

== ENCOUNTER 2019-12-26 16:19 | Emergency (ER) | payer MEDICAID ==
[2019-12-26 17:01] LABS: Urine Appearance Clear; Urine Bilirubin Negative (Negative); Urine Blood Negative (Negative); Urine Color Straw; Urine Glucose Negative (Negative); Urine Ketones Negative (Negative); Urine Nitrite Negative (Negative); Urine Protein Negative (Negative); Urine Specific Gravity 1.004 (1.010-1.030); Urine Urobilinogen Negative (Negative)
[2019-12-26 17:23] LABS: ABS Basophils 0.1 10^3/ul (0-0.2); ABS Eosinophils 0.3 10^3/ul (0-0.6); ABS Lymphocytes 1.9 10^3/ul (1.0-4.8); ABS Monocytes 0.6 10^3/ul (0-0.8); Eosinophil % 3.4 %; Hematocrit 41 % (42-52); Hemoglobin 14.1 g/dL (14.0-18.0); Lymphocyte % 24.9 %; Mean Corpuscular HGB Conc 35 g/dL (31-36); Mean Corpuscular Hemoglobin 31 pg (27-31); Mean Corpuscular Volume 90 fL (80-94); Mean Platelet Volume 8.3 fL (7.4-10.4); Platelet Count 188 10^3/uL (150-450); Red Blood Count 4.52 10^6 /uL (4.18-5.48); Red Cell Distribution Width 15 % (10-15); White Blood Count 7.8 10^3/uL (3.5-10.8)
[2019-12-26 17:34] LABS: Urine Benzodiazepine Screen None Detected (None Detect); Urine Opiates Screen None Detected (None Detect)
[2019-12-26 17:40] LABS: ALT 22 U/L (7-52); AST 33 U/L (13-39); Albumin/Globulin Ratio 1.4 (1-3); Alkaline Phosphatase 55 U/L (34-104); Anion Gap 10 mmol/L (2-11); BUN/Creatinine Ratio 10.4 (8-20); Blood Urea Nitrogen 7 mg/dL (6-24); CO2 Carbon Dioxide 25 mmol/L (22-32); Calcium 8.3 mg/dL (8.6-10.3); Chloride 105 mmol/L (101-111); EGFR African American 156.7 (>60); EGFR Non-African American 129.5 (>60); Globulin 2.9 g/dL (2-4); Glucose 98 mg/dL (70-100); Potassium 3.6 mmol/L (3.5-5.0); Sodium 140 mmol/L (135-145); Total Protein 6.9 g/dL (6.4-8.9)
[2019-12-26 17:55] LABS: Acetaminophen < 15 mcg/mL; Alcohol, S 331 mg/dL (<10); Salicylate < 2.50 mg/dL (<30)
[2019-12-26 18:10] LABS: TSH (Thyroid Stimulating Horm) 0.31 mcIU/mL (0.34-5.60)
[2019-12-27 05:54] VITALS: BP 165/105
== END 2019-12-27 06:25 | disposition home or self-care (01) ==
LOC: ED 16:19

== ENCOUNTER 2019-12-28 01:44 | Emergency (ER) | payer MEDICAID ==
[2019-12-28 02:33] LABS: ABS Eosinophils 0.3 10^3/ul (0-0.6); ABS Lymphocytes 2.2 10^3/ul (1.0-4.8); ABS Monocytes 0.7 10^3/ul (0-0.8); Eosinophil % 3.3 %; Hematocrit 46 % (42-52); Hemoglobin 15.3 g/dL (14.0-18.0); Lymphocyte % 27.1 %; Mean Corpuscular HGB Conc 33 g/dL (31-36); Mean Corpuscular Hemoglobin 30 pg (27-31); Mean Corpuscular Volume 91 fL (80-94); Mean Platelet Volume 8.5 fL (7.4-10.4); Platelet Count 191 10^3/uL (150-450); Red Blood Count 5.03 10^6 /uL (4.18-5.48); Red Cell Distribution Width 15 % (10-15); White Blood Count 8.1 10^3/uL (3.5-10.8)
[2019-12-28 02:35] LABS: Urine Appearance Clear; Urine Bilirubin Negative (Negative); Urine Blood 1+ (Negative); Urine Color Straw; Urine Glucose Negative (Negative); Urine Ketones Negative (Negative); Urine Nitrite Negative (Negative); Urine Protein Negative (Negative); Urine Specific Gravity 1.008 (1.010-1.030); Urine Urobilinogen Negative (Negative)
[2019-12-28 02:39] LABS: Urine Bacteria Absent (Absent); Urine Red Blood Cell Trace(0-2/hpf) (Absent); Urine White Blood Cell Absent (Absent)
[2019-12-28 02:55] LABS: ALT 21 U/L (7-52); AST 31 U/L (13-39); Albumin/Globulin Ratio 1.2 (1-3); Alkaline Phosphatase 64 U/L (34-104); Anion Gap 10 mmol/L (2-11); BUN/Creatinine Ratio 13.7 (8-20); Blood Urea Nitrogen 10 mg/dL (6-24); CO2 Carbon Dioxide 25 mmol/L (22-32); Calcium 9.1 mg/dL (8.6-10.3); Chloride 105 mmol/L (101-111); EGFR African American 141.9 (>60); EGFR Non-African American 117.3 (>60); Globulin 3.3 g/dL (2-4); Glucose 85 mg/dL (70-100); Potassium 3.3 mmol/L (3.5-5.0); Sodium 140 mmol/L (135-145); Total Protein 7.3 g/dL (6.4-8.9)
[2019-12-28 02:56] LABS: Acetaminophen < 15 mcg/mL; Alcohol, S 238 mg/dL (<10); Salicylate < 2.50 mg/dL (<30)
[2019-12-28 03:05] LABS: Urine Benzodiazepine Screen None Detected (None Detect); Urine Opiates Screen None Detected (None Detect)
[2019-12-28 03:09] LABS: TSH (Thyroid Stimulating Horm) 0.77 mcIU/mL (0.34-5.60)
[2019-12-28 11:21] VITALS: BP 151/91
== END 2019-12-28 11:21 | disposition home or self-care (01) ==
LOC: ED 01:44

== ENCOUNTER 2021-06-16 12:43 | Inpatient (IN) ==
[2021-06-16] MEDS ORDERED: NS 0.9% 1000 ml BAG 1,000 ML IV.FLUID IV ONE (13:27)
[2021-06-16 13:49] LABS: ABS Basophils 0.1 10^3/ul (0-0.2); ABS Eosinophils 0.2 10^3/ul (0-0.6); ABS Monocytes 0.8 10^3/ul (0-0.8); ABS Neutrophils 7.2 10^3/ul (1.5-7.7); Eosinophil % 1.9 %; Hematocrit 45 % (42-52); Hemoglobin 15.5 g/dL (14.0-18.0); Lymphocyte % 10.7 %; Mean Corpuscular HGB Conc 34 g/dL (31-36); Mean Corpuscular Hemoglobin 30 pg (27-31); Mean Corpuscular Volume 89 fL (80-94); Mean Platelet Volume 8.4 fL (7.4-10.4); Platelet Count 240 10^3/uL (150-450); Red Blood Count 5.12 10^6 /uL (4.18-5.48); Red Cell Distribution Width 14 % (10-15); White Blood Count 9.2 10^3/uL (3.5-10.8)
[2021-06-16] MEDS ORDERED: Vancomycin 1,000 MG in NS 0.9% 250 ml 250 ML IVPB ONE (13:55)
[2021-06-16] MEDS ORDERED: Piperacillin/Tazobac ADVAN 3.375 GM in NS 0.9% 100 ml BAG 100 ML IV ONE (13:55)
[2021-06-16 14:06] LABS: ALT 11 U/L (7-52); AST 20 U/L (13-39); Albumin 3.8 g/dL (3.2-5.2); Albumin/Globulin Ratio 1.1 (1-3); Alkaline Phosphatase 78 U/L (35-149); Anion Gap 8 mmol/L (2-11); Blood Urea Nitrogen 6 mg/dL (6-24); C Reactive Protein 75.69 mg/L (<8.01); CO2 Carbon Dioxide 26 mmol/L (22-32); Calcium 9.1 mg/dL (8.6-10.3); Chloride 101 mmol/L (101-111); Globulin 3.4 g/dL (2-4); Glucose 90 mg/dL (70-100); Lipase 12 U/L (11.0-82.0); Potassium 3.9 mmol/L (3.5-5.0); Sodium 135 mmol/L (135-145); Total Protein 7.2 g/dL (6.4-8.9)
[2021-06-16 14:09] LABS: Troponin I 0.04 ng/mL (<0.03)
[2021-06-16 14:21] LABS: Rapid COVID-19 Molecular Undetected (Undetected)
[2021-06-16 14:23] LABS: Influenza A Molecular Negative (Negative); Influenza B Molecular Negative (Negative)
[2021-06-16 14:44] LABS: Alcohol, S 29 mg/dL (<13)
[2021-06-16 15:26] LABS: INR 1.03 (0.86-1.15)
[2021-06-16] MEDS ORDERED: Thiamine 100 MG/ML 2 ml VIAL (200 mg) IM ONE (15:59)
[2021-06-16] MEDS ORDERED: Ondansetron 4 mg VIAL 2 MG/ML 2 ml VIAL IV PRN (16:23)
[2021-06-16] MEDS ORDERED: Magnesium Hydroxide LIQ 30 ML UDC PO PRN (16:23)
[2021-06-16] MEDS ORDERED: Nicotine Lozenge mini 2 MG LOZNG.MINI MT ONE (16:29)
[2021-06-16] MEDS ORDERED: NS 0.9% 1000 ml BAG 1,000 ML IV SCH (16:30)
[2021-06-16] MEDS: Nicotine PATCH 21 MG/24 HR PATCH TRANSDERM SCH (16:37)
[2021-06-16 16:56] LABS: Urine Appearance Clear; Urine Bilirubin Negative (Negative); Urine Blood Negative (Negative); Urine Color Yellow; Urine Glucose Negative (Negative); Urine Ketones Negative (Negative); Urine Nitrite Negative (Negative); Urine Protein Negative (Negative); Urine Specific Gravity 1.012 (1.002-1.030); Urine Urobilinogen Negative (Negative)
[2021-06-16] MEDS ORDERED: Zosyn per Pharmacy NOTE FOLLOW UP SCH (17:00)
[2021-06-16 17:37] LABS: Troponin I 0.03 ng/mL (<0.03)
[2021-06-16 17:39] LABS: Urine Benzodiazepine Screen None Detected (None Detect); Urine Cannabinoids Screen None Detected (None Detect); Urine Opiates Screen None Detected (None Detect)
[2021-06-16] MEDS: Enoxaparin 40 MG/0.4 ML SYR SUBCUT SCH (19:25)
[2021-06-17] MEDS: ZOSYN 3.375 GM Q8H per EXTENDED INFUSION IV SCH ×2 (05:28→11:47)
[2021-06-17 05:43] LABS: ABS Basophils 0.1 10^3/ul (0-0.2); ABS Eosinophils 0.2 10^3/ul (0-0.6); ABS Neutrophils 4.9 10^3/ul (1.5-7.7); Eosinophil % 2.3 %; Hematocrit 46 % (42-52); Hemoglobin 15.2 g/dL (14.0-18.0); Lymphocyte % 24.1 %; Mean Corpuscular HGB Conc 33 g/dL (31-36); Mean Corpuscular Hemoglobin 30 pg (27-31); Mean Corpuscular Volume 91 fL (80-94); Mean Platelet Volume 8.7 fL (7.4-10.4); Nucleated Red Blood Cells % 0.1; Platelet Count 193 10^3/uL (150-450); Red Blood Count 5.08 10^6 /uL (4.18-5.48); Red Cell Distribution Width 14 % (10-15); White Blood Count 8.1 10^3/uL (3.5-10.8)
[2021-06-17 05:56] LABS: Calcium 8.7 mg/dL (8.6-10.3); Potassium 3.9 mmol/L (3.5-5.0)
[2021-06-17 06:01] LABS: C Reactive Protein 100.8 mg/L (<8.01)
[2021-06-17] MEDS: Multivitamins/Minerals TAB PO SCH (08:28)
[2021-06-17] MEDS: Nicotine PATCH 21 MG/24 HR PATCH TRANSDERM SCH (08:29)
[2021-06-17] MEDS: Enoxaparin 40 MG/0.4 ML SYR SUBCUT SCH (16:20)
[2021-06-17] MEDS ORDERED: Vancomycin per Pharmacy 1 EA NOTE FOLLOW UP SCH (18:00)
[2021-06-17] MEDS ORDERED: Vancomycin 1,500 MG in NS 0.9% 250 ml 250 ML IVPB ONE (18:00)
[2021-06-17] MEDS: Nicotine Lozenge mini 2 MG LOZNG.MINI MT PRN (18:39)
[2021-06-18] MEDS: Vancomycin 1000 MG in NS 0.9% 250 ML IVPB SCH ×3 (05:08→20:25)
[2021-06-18] MEDS: Multivitamins/Minerals TAB PO SCH (08:12)
[2021-06-18] MEDS: Nicotine Lozenge mini 2 MG LOZNG.MINI MT PRN ×3 (08:14→22:40)
[2021-06-18] MEDS: Nicotine PATCH 21 MG/24 HR PATCH TRANSDERM SCH (08:24)
[2021-06-18 08:44] LABS: ABS Basophils 0.1 10^3/ul (0-0.2); ABS Eosinophils 0.3 10^3/ul (0-0.6); ABS Monocytes 0.9 10^3/ul (0-0.8); ABS Neutrophils 3.2 10^3/ul (1.5-7.7); Eosinophil % 4.5 %; Hematocrit 43 % (42-52); Hemoglobin 14.3 g/dL (14.0-18.0); Lymphocyte % 31.1 %; Mean Corpuscular HGB Conc 33 g/dL (31-36); Mean Corpuscular Hemoglobin 30 pg (27-31); Mean Corpuscular Volume 91 fL (80-94); Mean Platelet Volume 8.6 fL (7.4-10.4); Platelet Count 218 10^3/uL (150-450); Red Blood Count 4.79 10^6 /uL (4.18-5.48); Red Cell Distribution Width 15 % (10-15); White Blood Count 6.4 10^3/uL (3.5-10.8)
[2021-06-18 09:00] LABS: Calcium 8.7 mg/dL (8.6-10.3); Magnesium 1.9 mg/dL (1.9-2.7); Potassium 4.2 mmol/L (3.5-5.0)
[2021-06-18 13:45] LABS: C Reactive Protein 55.42 mg/L (<8.01)
[2021-06-18] MEDS: Enoxaparin 40 MG/0.4 ML SYR SUBCUT SCH (16:10)
[2021-06-19] MEDS: Vancomycin 1000 MG in NS 0.9% 250 ML IVPB SCH ×2 (04:19→13:01)
[2021-06-19 08:10] LABS: ABS Basophils 0.1 10^3/ul (0-0.2); ABS Eosinophils 0.4 10^3/ul (0-0.6); ABS Lymphocytes 2.2 10^3/ul (1.0-4.8); ABS Monocytes 0.7 10^3/ul (0-0.8); Eosinophil % 5.6 %; Hematocrit 42 % (42-52); Lymphocyte % 34.8 %; Mean Corpuscular HGB Conc 33 g/dL (31-36); Mean Corpuscular Hemoglobin 30 pg (27-31); Mean Corpuscular Volume 89 fL (80-94); Mean Platelet Volume 8.3 fL (7.4-10.4); Nucleated Red Blood Cells % 0.1; Platelet Count 247 10^3/uL (150-450); Red Blood Count 4.72 10^6 /uL (4.18-5.48); Red Cell Distribution Width 14 % (10-15); White Blood Count 6.3 10^3/uL (3.5-10.8)
[2021-06-19 08:24] LABS: Calcium 8.6 mg/dL (8.6-10.3); Magnesium 1.9 mg/dL (1.9-2.7); Potassium 4.4 mmol/L (3.5-5.0)
[2021-06-19 09:06] LABS: C Reactive Protein 22.28 mg/L (<8.01)
[2021-06-19] MEDS: Multivitamins/Minerals TAB PO SCH (09:21)
[2021-06-19] MEDS: Nicotine PATCH 21 MG/24 HR PATCH TRANSDERM SCH (09:22)
[2021-06-19] MEDS ORDERED: Vancomycin Trough Check NOTE FOLLOW UP ONE (11:30)
[2021-06-19] MEDS: Enoxaparin 40 MG/0.4 ML SYR SUBCUT SCH (18:20)
[2021-06-19] MEDS: Vancomycin 1,250 MG in NS 0.9% 250 ml 250 ML IVPB SCH (19:36)
[2021-06-19] MEDS: Nicotine Lozenge mini 2 MG LOZNG.MINI MT PRN (21:41)
[2021-06-20] MEDS: Vancomycin 1,250 MG in NS 0.9% 250 ml 250 ML IVPB SCH ×3 (04:20→22:33)
[2021-06-20] MEDS: Nicotine PATCH 21 MG/24 HR PATCH TRANSDERM SCH (09:45)
[2021-06-20] MEDS: Multivitamins/Minerals TAB PO SCH (09:45)
[2021-06-20] MEDS: Enoxaparin 40 MG/0.4 ML SYR SUBCUT SCH (15:52)
[2021-06-20] MEDS: Nicotine Lozenge mini 2 MG LOZNG.MINI MT PRN (22:25)
[2021-06-21] MEDS: Vancomycin 1,250 MG in NS 0.9% 250 ml 250 ML IVPB SCH ×2 (03:30→12:38)
[2021-06-21 06:17] LABS: ABS Basophils 0.1 10^3/ul (0-0.2); ABS Eosinophils 0.4 10^3/ul (0-0.6); ABS Lymphocytes 2.4 10^3/ul (1.0-4.8); ABS Monocytes 0.8 10^3/ul (0-0.8); ABS Neutrophils 3.1 10^3/ul (1.5-7.7); Eosinophil % 6.1 %; Hematocrit 44 % (42-52); Hemoglobin 14.5 g/dL (14.0-18.0); Lymphocyte % 35.5 %; Mean Corpuscular HGB Conc 33 g/dL (31-36); Mean Corpuscular Hemoglobin 30 pg (27-31); Mean Corpuscular Volume 91 fL (80-94); Mean Platelet Volume 8.2 fL (7.4-10.4); Nucleated Red Blood Cells % 0.1; Platelet Count 296 10^3/uL (150-450); Red Blood Count 4.85 10^6 /uL (4.18-5.48); Red Cell Distribution Width 14 % (10-15); White Blood Count 6.8 10^3/uL (3.5-10.8)
[2021-06-21 06:33] LABS: Calcium 8.7 mg/dL (8.6-10.3); Potassium 4.5 mmol/L (3.5-5.0)
[2021-06-21] MEDS: Multivitamins/Minerals TAB PO SCH (09:50)
[2021-06-21] MEDS: Nicotine PATCH 21 MG/24 HR PATCH TRANSDERM SCH (09:51)
[2021-06-21] MEDS ORDERED: Vancomycin Trough Check NOTE FOLLOW UP ONE (11:30)
[2021-06-21] MEDS: Enoxaparin 40 MG/0.4 ML SYR SUBCUT SCH (16:02)
[2021-06-21] MEDS ORDERED: Calcium Carb (TUMS) 500 mg CHEW TAB PO PRN (18:05)
[2021-06-21] MEDS: Vancomycin 1000 MG in NS 0.9% 250 ML IVPB SCH (21:52)
[2021-06-22] MEDS: Vancomycin 1000 MG in NS 0.9% 250 ML IVPB SCH ×3 (04:56→20:51)
[2021-06-22] MEDS: Nicotine PATCH 21 MG/24 HR PATCH TRANSDERM SCH (10:47)
[2021-06-22] MEDS: Multivitamins/Minerals TAB PO SCH (10:47)
[2021-06-22] MEDS: Enoxaparin 40 MG/0.4 ML SYR SUBCUT SCH (16:02)
[2021-06-23] MEDS: Vancomycin 1000 MG in NS 0.9% 250 ML IVPB SCH ×3 (04:23→20:06)
[2021-06-23] MEDS: Nicotine PATCH 21 MG/24 HR PATCH TRANSDERM SCH (09:07)
[2021-06-23] MEDS: Multivitamins/Minerals TAB PO SCH (09:08)
[2021-06-23] MEDS ORDERED: Vancomycin Trough Check NOTE FOLLOW UP ONE (12:30)
[2021-06-23] MEDS: Enoxaparin 40 MG/0.4 ML SYR SUBCUT SCH (18:35)
[2021-06-24] MEDS: Vancomycin 1000 MG in NS 0.9% 250 ML IVPB SCH ×3 (04:37→20:12)
[2021-06-24 06:18] LABS: ABS Basophils 0.1 10^3/ul (0-0.2); ABS Eosinophils 0.4 10^3/ul (0-0.6); ABS Lymphocytes 2.5 10^3/ul (1.0-4.8); ABS Monocytes 0.9 10^3/ul (0-0.8); Eosinophil % 5.3 %; Hematocrit 40 % (42-52); Hemoglobin 13.5 g/dL (14.0-18.0); Lymphocyte % 31.8 %; Mean Corpuscular HGB Conc 33 g/dL (31-36); Mean Corpuscular Hemoglobin 30 pg (27-31); Mean Corpuscular Volume 90 fL (80-94); Mean Platelet Volume 7.9 fL (7.4-10.4); Platelet Count 331 10^3/uL (150-450); Red Cell Distribution Width 15 % (10-15); White Blood Count 7.9 10^3/uL (3.5-10.8)
[2021-06-24 06:34] LABS: Albumin 3.4 g/dL (3.2-5.2); Albumin/Globulin Ratio 1.1 (1-3); C Reactive Protein 3.47 mg/L (<8.01); Calcium 8.7 mg/dL (8.6-10.3); Globulin 3.2 g/dL (2-4); Magnesium 1.8 mg/dL (1.9-2.7); Potassium 4.1 mmol/L (3.5-5.0); Total Bilirubin 0.2 mg/dL (0.2-1.0); Total Protein 6.6 g/dL (6.4-8.9)
[2021-06-24] MEDS: Multivitamins/Minerals TAB PO SCH (09:00)
[2021-06-24] MEDS: Nicotine PATCH 21 MG/24 HR PATCH TRANSDERM SCH (09:02)
[2021-06-24] MEDS: Enoxaparin 40 MG/0.4 ML SYR SUBCUT SCH (17:32)
[2021-06-25] MEDS: Vancomycin 1000 MG in NS 0.9% 250 ML IVPB SCH ×3 (03:42→20:52)
[2021-06-25] MEDS: Nicotine PATCH 21 MG/24 HR PATCH TRANSDERM SCH (11:00)
[2021-06-25] MEDS: Multivitamins/Minerals TAB PO SCH (11:00)
[2021-06-25] MEDS: Nicotine Lozenge mini 2 MG LOZNG.MINI MT PRN (15:43)
[2021-06-25] MEDS: Enoxaparin 40 MG/0.4 ML SYR SUBCUT SCH (17:34)
[2021-06-26] MEDS: Vancomycin 1000 MG in NS 0.9% 250 ML IVPB SCH ×3 (03:50→21:11)
[2021-06-26] MEDS: Multivitamins/Minerals TAB PO SCH (08:48)
[2021-06-26] MEDS: Nicotine PATCH 21 MG/24 HR PATCH TRANSDERM SCH (08:51)
[2021-06-26] MEDS ORDERED: Vancomycin Trough Check NOTE FOLLOW UP ONE (12:00)
[2021-06-26 13:03] LABS: Vancomycin Trough 13.4 mcg/mL
[2021-06-26] MEDS: Enoxaparin 40 MG/0.4 ML SYR SUBCUT SCH (15:53)
[2021-06-27] MEDS: Vancomycin 1000 MG in NS 0.9% 250 ML IVPB SCH ×3 (04:03→20:53)
[2021-06-27] MEDS: Nicotine PATCH 21 MG/24 HR PATCH TRANSDERM SCH (07:44)
[2021-06-27] MEDS: Multivitamins/Minerals TAB PO SCH (07:45)
[2021-06-27] MEDS: Enoxaparin 40 MG/0.4 ML SYR SUBCUT SCH (17:39)
[2021-06-28] MEDS: Vancomycin 1000 MG in NS 0.9% 250 ML IVPB SCH ×3 (04:47→21:01)
[2021-06-28] MEDS: Multivitamins/Minerals TAB PO SCH (08:52)
[2021-06-28] MEDS: Nicotine PATCH 21 MG/24 HR PATCH TRANSDERM SCH (08:52)
[2021-06-28 10:29] LABS: ABS Basophils 0.1 10^3/ul (0-0.2); ABS Eosinophils 0.4 10^3/ul (0-0.6); ABS Lymphocytes 2.3 10^3/ul (1.0-4.8); ABS Monocytes 0.9 10^3/ul (0-0.8); ABS Neutrophils 5.2 10^3/ul (1.5-7.7); Eosinophil % 4.9 %; Hematocrit 41 % (42-52); Hemoglobin 13.5 g/dL (14.0-18.0); Mean Corpuscular HGB Conc 33 g/dL (31-36); Mean Corpuscular Hemoglobin 29 pg (27-31); Mean Corpuscular Volume 89 fL (80-94); Mean Platelet Volume 8.6 fL (7.4-10.4); Platelet Count 315 10^3/uL (150-450); Red Cell Distribution Width 15 % (10-15); White Blood Count 8.9 10^3/uL (3.5-10.8)
[2021-06-28 10:48] LABS: Magnesium 1.8 mg/dL (1.9-2.7); Potassium 4.3 mmol/L (3.5-5.0)
[2021-06-28] MEDS: Enoxaparin 40 MG/0.4 ML SYR SUBCUT SCH (15:54)
[2021-06-29] MEDS: Vancomycin 1000 MG in NS 0.9% 250 ML IVPB SCH ×3 (04:12→20:13)
[2021-06-29] MEDS: Multivitamins/Minerals TAB PO SCH (08:15)
[2021-06-29] MEDS: Nicotine PATCH 21 MG/24 HR PATCH TRANSDERM SCH (08:16)
[2021-06-29] MEDS ORDERED: Buffered Lidocaine 1% SYRIN 1 ml INTRADERM ONE (13:19)
[2021-06-29] MEDS: Enoxaparin 40 MG/0.4 ML SYR SUBCUT SCH (16:39)
[2021-06-30] MEDS: Vancomycin 1000 MG in NS 0.9% 250 ML IVPB SCH ×2 (04:56→14:26)
[2021-06-30] MEDS: Multivitamins/Minerals TAB PO SCH (08:13)
[2021-06-30] MEDS: Nicotine PATCH 21 MG/24 HR PATCH TRANSDERM SCH (08:13)
[2021-06-30] MEDS ORDERED: Vancomycin Trough Check NOTE FOLLOW UP ONE (12:00)
[2021-06-30 12:44] LABS: Vancomycin Trough 15.9 mcg/mL
[2021-06-30] MEDS: Enoxaparin 40 MG/0.4 ML SYR SUBCUT SCH (16:05)
[2021-06-30 16:14] VITALS: BP 139/90
[2021-07-01] MEDS ORDERED: Vancomycin 1,500 MG in NS 0.9% 250 ml 250 ML IVPB SCH (02:00)
== END 2021-06-30 16:07 | disposition swing bed (61) | DRG 720 ==
LOC: ED 12:43 → EDHOLD 16:23 → SUATTDRO 16:23 → MED 06-17 04:10
PROVIDERS: ADMIT Hospitalist; ATTEND Hospitalist

== ENCOUNTER 2021-06-30 16:26 | Inpatient (IN) ==
[2021-06-30] MEDS ORDERED: Ondansetron 4 mg VIAL 2 MG/ML 2 ml VIAL IV PRN (16:33)
[2021-06-30] MEDS ORDERED: Magnesium Hydroxide LIQ 30 ML UDC PO PRN (16:36)
[2021-06-30] MEDS ORDERED: Calcium Carb (TUMS) 500 mg CHEW TAB PO PRN (16:36)
[2021-06-30] MEDS ORDERED: Vancomycin per Pharmacy 1 EA NOTE FOLLOW UP SCH (16:45)
[2021-06-30] MEDS: Enoxaparin 40 MG/0.4 ML SYR SUBCUT SCH (18:12)
[2021-07-01] MEDS: Vancomycin 1,500 MG in NS 0.9% 250 ml 250 ML IVPB SCH ×2 (02:00→14:20)
[2021-07-01 08:11] LABS: ABS Basophils 0.2 10^3/ul (0-0.2); ABS Eosinophils 0.4 10^3/ul (0-0.6); ABS Lymphocytes 1.9 10^3/ul (1.0-4.8); ABS Monocytes 0.8 10^3/ul (0-0.8); ABS Neutrophils 5.3 10^3/ul (1.5-7.7); Eosinophil % 4.5 %; Hematocrit 41 % (42-52); Hemoglobin 13.7 g/dL (14.0-18.0); Lymphocyte % 22.5 %; Mean Corpuscular HGB Conc 33 g/dL (31-36); Mean Corpuscular Hemoglobin 30 pg (27-31); Mean Corpuscular Volume 89 fL (80-94); Mean Platelet Volume 8.3 fL (7.4-10.4); Platelet Count 286 10^3/uL (150-450); Red Blood Count 4.58 10^6 /uL (4.18-5.48); Red Cell Distribution Width 15 % (10-15); White Blood Count 8.6 10^3/uL (3.5-10.8)
[2021-07-01 08:26] LABS: Albumin 3.8 g/dL (3.2-5.2); Albumin/Globulin Ratio 1.2 (1-3); C Reactive Protein 6.26 mg/L (<8.01); Globulin 3.1 g/dL (2-4); Total Bilirubin 0.2 mg/dL (0.2-1.0); Total Protein 6.9 g/dL (6.4-8.9)
[2021-07-01 09:14] LABS: Magnesium 1.8 mg/dL (1.9-2.7); Potassium 4.5 mmol/L (3.5-5.0)
[2021-07-01] MEDS: Nicotine PATCH 21 MG/24 HR PATCH TRANSDERM SCH (11:51)
[2021-07-01] MEDS: Multivitamins/Minerals TAB PO SCH (11:53)
[2021-07-01] MEDS: Enoxaparin 40 MG/0.4 ML SYR SUBCUT SCH (16:45)
[2021-07-02] MEDS: Vancomycin 1,500 MG in NS 0.9% 250 ml 250 ML IVPB SCH ×2 (02:52→15:09)
[2021-07-02] MEDS: Multivitamins/Minerals TAB PO SCH (09:27)
[2021-07-02] MEDS: Nicotine PATCH 21 MG/24 HR PATCH TRANSDERM SCH (09:28)
[2021-07-02] MEDS: Nicotine Lozenge mini 2 MG LOZNG.MINI MT PRN (15:27)
[2021-07-02] MEDS: Enoxaparin 40 MG/0.4 ML SYR SUBCUT SCH (17:22)
[2021-07-03] MEDS: Vancomycin 1,500 MG in NS 0.9% 250 ml 250 ML IVPB SCH ×2 (02:18→17:00)
[2021-07-03] MEDS: Nicotine PATCH 21 MG/24 HR PATCH TRANSDERM SCH (09:45)
[2021-07-03] MEDS: Multivitamins/Minerals TAB PO SCH (09:45)
[2021-07-03] MEDS ORDERED: Vancomycin Trough Check NOTE FOLLOW UP ONE (13:30)
[2021-07-03 16:45] LABS: Vancomycin Trough 9.3 mcg/mL
[2021-07-03] MEDS: Enoxaparin 40 MG/0.4 ML SYR SUBCUT SCH (17:43)
[2021-07-03] MEDS: Nicotine Lozenge mini 2 MG LOZNG.MINI MT PRN (22:31)
[2021-07-04] MEDS: Vancomycin 1,500 MG in NS 0.9% 250 ml 250 ML IVPB SCH ×2 (02:54→14:05)
[2021-07-04] MEDS: Multivitamins/Minerals TAB PO SCH (09:15)
[2021-07-04] MEDS: Nicotine PATCH 21 MG/24 HR PATCH TRANSDERM SCH (09:37)
[2021-07-04] MEDS: Enoxaparin 40 MG/0.4 ML SYR SUBCUT SCH (17:29)
[2021-07-04] MEDS: Nicotine Lozenge mini 2 MG LOZNG.MINI MT PRN (21:42)
[2021-07-05] MEDS: Vancomycin 1,500 MG in NS 0.9% 250 ml 250 ML IVPB SCH ×2 (02:03→13:39)
[2021-07-05] MEDS: Multivitamins/Minerals TAB PO SCH (07:25)
[2021-07-05] MEDS: Nicotine PATCH 21 MG/24 HR PATCH TRANSDERM SCH (07:27)
[2021-07-05] MEDS: Enoxaparin 40 MG/0.4 ML SYR SUBCUT SCH (17:11)
[2021-07-05] MEDS: Nicotine Lozenge mini 2 MG LOZNG.MINI MT PRN (21:37)
[2021-07-06] MEDS: Vancomycin 1,500 MG in NS 0.9% 250 ml 250 ML IVPB SCH ×2 (02:50→14:48)
[2021-07-06] MEDS: Multivitamins/Minerals TAB PO SCH (08:35)
[2021-07-06] MEDS: Nicotine PATCH 21 MG/24 HR PATCH TRANSDERM SCH (08:38)
[2021-07-06] MEDS: Enoxaparin 40 MG/0.4 ML SYR SUBCUT SCH (17:10)
[2021-07-07 05:24] VITALS: BP 138/83
[2021-07-07] MEDS: Multivitamins/Minerals TAB PO SCH (09:11)
[2021-07-07] MEDS: Nicotine PATCH 21 MG/24 HR PATCH TRANSDERM SCH (09:31)
== END 2021-07-07 13:45 | disposition home or self-care (01) | DRG 383 ==
LOC: SUATTDRO 16:26 → MED 16:26 → PMRU 16:50
PROVIDERS: ADMIT Hospitalist; ATTEND Internal Medicine